=== PATIENT | male | born 1960 | race Caucasian/White ===

== ENCOUNTER 2020-01-31 09:03 | Inpatient (IN) | payer MEDICARE, MEDICAID, SELFPAY ==
[2020-01-31] VITALS (26 sets, daily range): BP systolic 74–93; BP diastolic 51–65; PULSE 94–107; RESP 14–32; TEMP 36.1–37.1; O2SAT 81–100; BMI 11.2
--- NOTE | 2020-01-31 09:12 | DI.RAD.S_ITS ---
PROCEDURE: XR CHEST 2V INDICATIONS: fall TECHNIQUE: 2 views of the chest were acquired. COMPARISON: None. FINDINGS: Surgical changes and devices: None. Lungs and pleura: Lungs are clear. No pleural effusions or pneumothorax. Mediastinum: Mediastinal contours are normal. Heart size is normal. Bones and chest wall: No suspicious bony abnormalities. Soft tissues appear unremarkable. IMPRESSION: No evidence acute pulmonary process. Dictated by: Catrachito Ritchie M.D. on 01/31/2020 at 10:13 Approved by: Catrachito Ritchie M.D. on 01/31/2020 at 10:13
--- NOTE | 2020-01-31 09:12 | DI.RAD.S_ITS ---
PROCEDURE: XR THORACIC SPINE 2V INDICATIONS: fall TECHNIQUE: 2 views of the thoracic spine were acquired. COMPARISON: None. FINDINGS: Bones: No fractures or dislocations. No suspicious bony lesions. 12 pairs of ribs are noted, and appear intact where visualized. Soft tissues: No paravertebral stripe thickening. IMPRESSION: No evidence acute bony abnormality of the thoracic spine. If clinical suspicion and/or symptoms persist, further assessment with repeat plain films, or advanced imaging (e.g., CT, MRI, or bone scan) may be helpful for further assessment. Dictated by: Catrachito Ritchie M.D. on 01/31/2020 at 10:12 Approved by: Catrachito Ritchie M.D. on 01/31/2020 at 10:12
--- NOTE | 2020-01-31 09:12 | DI.RAD.S_ITS ---
PROCEDURE: XR SACRUM COCCYX MIN 2V INDICATIONS: fall TECHNIQUE: 3 views of the sacrum and coccyx acquired. COMPARISON: None. FINDINGS: Bones: Probable sacral insufficiency fracture with a horizontal fracture noted on the lateral view at the level of approximately S3 or S4. The vertical components are not well visualized secondary to overlying bowel gas and osteopenia. Soft tissues: Visualized bowel gas pattern is normal. No suspicious soft tissue densities. IMPRESSION: There is a horizontal fracture at approximately S3 or S4. Findings likely represent sacral insufficiency fractures. Consider CT or MR for confirmation. Dictated by: Catrachito Ritchie M.D. on 01/31/2020 at 10:13 Approved by: Catrachito Ritchie M.D. on 01/31/2020 at 10:15
--- NOTE | 2020-01-31 09:13 | DI.CT.S_ITS ---
PROCEDURE: CT HEAD/BRAIN WO CON INDICATIONS: fall TECHNIQUE: Noncontrast 4.5 mm thick angled axial sections acquired from the foramen magnum to the vertex, with coronal and sagittal reformats. For radiation dose reduction, the following was used: automated exposure control, adjustment of mA and/or kV according to patient size. COMPARISON: [facility], CT, CT CERVICAL SPINE WO CON, 01/31/2020, 9:36. FINDINGS: Image quality: Excellent. CSF spaces: Basal cisterns are patent. No extra-axial fluid collections. The ventricles are symmetric in size and shape. Brain: No intracranial bleeds or masses. There is cerebral volume loss for age, with resultant ventricular and sulcal prominence. There are periventricular and deep white matter chronic small vessel ischemic changes. There is intracranial internal carotid artery atherosclerosis. Skull and face: Calvarium and visualized facial bones appear intact, without suspicious lesions. Sinuses: Visualized sinuses and mastoids are clear. IMPRESSION: No acute intracranial process is seen. No acute intracranial hemorrhage is seen. Dictated by: Rayray Penn M.D. on 01/31/2020 at 9:00 Approved by: Rayray Penn M.D. on 01/31/2020 at 9:01
--- NOTE | 2020-01-31 09:17 | ED_ITS ---
HPI - Weakness General Chief complaint: Fall Stated complaint: Weak Time Seen by Provider: 01/31/20 09:12 Source: patient and EMS Mode of arrival: EMS Limitations: no limitations History of Present Illness HPI Narrative: Patient is a 59-year-old male who presents after a fall 2 days prior. He states he was trying to get up to use the restroom when he fell on the ground he was finally able to Bang on the door and tract his neighbor's attention. He is extremely cachectic stating that he has been unable to eat for the last 2 months because nothing tastes good. He denies hitting his head when he fell he does have some skin abrasions on his arm. He states he does not go to the doctors and takes no medications. He does live alone. He initially was found to be hypotensive and IV was started. MD Complaint: generalized weakness Related Data Home Medications Medication Instructions Recorded Confirmed No Known Home Medications 01/31/20 01/31/20 Allergies Allergy/AdvReac Type Severity Reaction Status Date / Time No Known Drug Allergies Allergy Verified 01/31/20 09:30 Review of Systems Review of Systems ROS Unobtainable: All systems reviewed & are unremarkable except as noted in HPI and below Constitutional Constitutional: Reports anorexia, Reports fatigue, Denies headache(s) and Reports poor appetite Eyes Eyes: Denies change in vision, Denies eye discharge, Denies irritation and Denies loss of vision ENT Ears, Nose, Mouth, and Throat: Denies change in voice, Denies headache(s), Denies neck pain, Denies disequilibrium and Denies sore throat Cardiovascular Cardiovascular: Denies chest pain, Denies irregular heart rhythm, Denies lightheadedness, Denies palpitations and Denies orthopnea Gastrointestinal Gastrointestinal: Denies abdominal pain, Denies change in bowel habits, Denies diarrhea, Denies nausea and Denies vomiting Genitourinary Genitourinary: Reports urinary incontinence Genitourinary: Reports urinary incontinence Musculoskeletal Musculoskeletal: Reports atrophy, Reports muscle weakness and Denies neck pain Integumentary/Breasts Skin/Breast: Reports as per HPI and Reports sores Neurologic Neurologic: Denies headache(s), Denies loss of vision and Denies disequilibrium Endocrine Endocrine: Reports fatigue and Denies palpitations Patient History Medical History (Updated 01/31/20 @ 11:02 by Barbara Izquierdo DO) Patient denies medical problems (Acute) Social History Smoking Status: Current every day smoker Exam Initial Vital Signs Initial Vital Signs: Vital Signs Pulse Rate 103 H 01/31/20 09:05 Respiratory Rate 27 H 01/31/20 09:05 Blood Pressure 82/56 L 01/31/20 09:05 Pulse Oximetry 98 01/31/20 09:05 Gen.: Extremely cachectic frail elderly male HEENT: Head is atraumatic, EOMI Neck: Supple no vertebral tenderness no step-off Lungs: Clear bilaterally no wheezes rales or rhonchi Cardiac: Regular rate and rhythm no murmur Abdomen: Soft nontender nondistended no guarding or rebound Back: No vertebral tenderness thoracic area he does have areas of erythema that is blanchable he also has erythema on his coccyx also blanchable no open sores Extremities: No gross bony deformities peripheral pulses intact pelvis is stable 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 but equal bilaterally able to lift each leg off the gurney Skin: Skin tear noted on right forearm and right shoulder also areas of erythema noted on back better blanchable as described above Course Orders Ordered: ED Orders 01/31/20 09:12 XR chest 2V Stat XR sacrum coccyx min 2V Stat XR thoracic spine 2V Stat 01/31/20 09:13 CT head/brain wo con Stat EKG-12 Lead Stat 01/31/20 09:26 Urinalysis and Microscopic Stat Urine Drug Screen, Rapid Stat 01/31/20 09:29 Complete Blood Count AUTO DIFF Stat Comprehensive Metabolic Panel Stat Lactate (Lactic Acid) Stat Partial Thromboplastin Time Stat Procalcitonin Stat Prothrombin Time INR Stat Troponin & CK Cardiac Panel Stat 01/31/20 09:43 CT cervical spine wo con Stat 01/31/20 12:15 Blood Culture Stat Acetaminophen (Tylenol) 650 mg PO Q6HR PRN PRN Reason: Fever/Mild Pain (1-3) Docusate Sodium (Colace) 100 mg PO BID JEREMY Enoxaparin Sodium (Lovenox) 40 mg SUBCUT DAILY JEREMY Sodium Chloride (Normal Saline 0.9%) 1,000 mls @ 100 mls/hr IV CONT JEREMY Last Infusion: 01/31/20 12:17 Dose: 0 mls/hr Documented by: Admin: 01/31/20 09:32 Dose: 100 mls/hr Documented by: LIONEL Potassium Chloride 30 meq/ (Sodium Chloride) 265 mls @ 88.333 mls/hr IV Q3H JEREMY Stop: 01/31/20 15:55 Last Infusion: 01/31/20 12:17 Dose: 88.333 mls/hr Documented by: RJ Cosigned by: NOEMI Admin: 01/31/20 10:27 Dose: 88.333 mls/hr Documented by: RJ Cosigned by: NOEMI Sodium Chloride (Normal Saline 0.9%) 1,000 mls @ 100 mls/hr IV CONT JEREMY Naloxone HCl (Narcan) 0.2 mg IV Q2MIN PRN PRN Reason: Opiate Reversal Ondansetron HCl (Zofran) 4 mg IV Q8HR PRN PRN Reason: Nausea And Vomiting Oxycodone HCl (Percolone) 5 mg PO Q6HR PRN PRN Reason: Pain, Moderate (4-6) Sennosides (Senna) 17.2 mg PO BEDTIME JEREMY Discontinued Medications Sodium Chloride (Normal Saline 0.9%) 1,000 mls @ 1,000 mls/hr IV BOLUS ONE Stop: 01/31/20 10:56 Last Infusion: 01/31/20 11:41 Dose: 0 mls/hr Documented by: Admin: 01/31/20 10:11 Dose: 1,000 mls/hr Documented by: RJ Vital Signs Vital signs: Vital Signs - 8 hr 01/31/20 09:05 01/31/20 09:06 01/31/20 09:15 Temperature 97.0 F L Pulse Rate 103 H 101 H 97 H Respiratory Rate 27 H 26 H 31 H Blood Pressure 82/56 L 82/56 L 84/58 L Pulse Oximetry 98 99 100 01/31/20 09:30 01/31/20 09:40 01/31/20 10:05 Temperature Pulse Rate 101 H 102 H 101 H Respiratory Rate 26 H 23 22 Blood Pressure 86/65 L Pulse Oximetry 100 100 98 01/31/20 10:10 01/31/20 10:15 01/31/20 10:16 Temperature Pulse Rate 100 H 94 H 96 H Respiratory Rate 26 H 18 22 Blood Pressure 84/55 L 80/61 L Pulse Oximetry 98 100 100 01/31/20 10:30 01/31/20 10:45 01/31/20 10:46 Temperature Pulse Rate 94 H 95 H 97 H Respiratory Rate 24 25 H 32 H Blood Pressure 93/65 93/64 Pulse Oximetry 100 100 100 01/31/20 11:00 Temperature Pulse Rate 97 H Respiratory Rate 24 Blood Pressure 87/65 L Pulse Oximetry 100 MDM - Weakness Lab Data Attestation: I reviewed the patient's lab results. Result diagrams: 01/31/20 09:29 01/31/20 09:29 Labs: Lab Results 01/31/20 01/31/20 01/31/20 Range/Units 09:26 09:26 09:29 WBC 9.5 (4.5-11.0) X10^3/uL RBC 3.67 L (4.5-5.9) X10^6/uL Hgb 12.4 L (13.5-17.5) g/dL Hct 35.2 L (41-53) % MCV 95.9 (80-100) fL MCH 33.7 (26-34) PG MCHC 35.2 (30-36) % RDW 13.8 (11.6-14.8) % Plt Count 131 L (150-400) X10^3/uL Neut % (Auto) 91.1 H (50-75) % Lymph % (Auto) 8.2 L (25-40) % [place] % (Auto) 0.4 L (3-14) % Eos % (Auto) 0.0 L (2-4) % Baso % (Auto) 0.3 (0-2) % Neut # (Auto) 8600 H (0006-5640) /uL Lymph # (Auto) 800 L (7672-9311) /uL [place] # (Auto) 0 (0-900) /uL Eos # (Auto) 0 (0-450) /uL Baso # (Auto) 0 (0-100) /uL PT (10.1-12.7) SECONDS INR (0.9-1.3) APTT (26.4-36.2) SECONDS Sodium (137-145) mmol/L Potassium (3.4-5.1) mmol/L Chloride (98-107) mmol/L Carbon Dioxide (22-32) mmol/L BUN (9-20) mg/dL Creatinine (0.66-1.25) mg/dL Estimated GFR (>60) mL/min BUN/Creatinine Ratio (6-22) Glucose (80-110) mg/dL Lactate (0.7-2.1) mmol/L Calcium (8.4-10.2) mg/dL Total Bilirubin (0.2-1.3) mg/dL AST (17-59) IU/L ALT (<50) IU/L Alkaline Phosphatase (38-126) U/L Total Creatine Kinase (55-170) U/L CK-MB (CK-2) (<2.37) ng/mL CK-MB (CK-2) Rel Index (1.5-5.0) % Troponin I (0.01-0.034) ng/mL Total Protein (6.3-8.2) g/dL Albumin (3.5-5.0) g/dL Globulin (1.7-4.1) g/dL Albumin/Globulin Ratio (1.0-2.8) Procalcitonin (<0.5) ng/mL Urine Color Brown Urine Appearance Slightly cloudy Urine pH TNP Ur Specific [place] TNP Urine Protein TNP Urine Glucose (UA) TNP Urine Ketones TNP Urine Occult Blood TNP Urine Nitrate TNP Urine Bilirubin TNP Urine Urobilinogen TNP Ur Leukocyte Esterase TNP Urine RBC None seen (0-5/HPF) Urine WBC None seen (0-5/HPF) Ur Squamous Epith Cells 1-5 /hpf (0-5/HPF) Amorphous Sediment 1+ Urine Bacteria None seen (None) Granular Casts 5-10/lpf (None) Ur Culture Indicated? Cult not indicated U Opiates 300ng/mL cut Negative (Negative) Ur Oxycodone Screen Negative (Negative) Urine Methadone Screen Negative (Negative) Ur Barbiturates Screen Negative (Negative) U Tricyclic Antidepress Negative (Negative) Ur Phencyclidine Scrn Negative (Negative) Ur Amphetamines Screen Negative (Negative) U Methamphetamines Scrn Negative (Negative) Ur MDMA Scrn (Ecstasy) Negative (Negative) U Benzodiazepines Scrn Negative (Negative) Urine Cocaine Screen Negative (Negative) U Marijuana (THC) Screen Positive H (Negative) COVID-19 PCR (Negative) 01/31/20 01/31/20 01/31/20 Range/Units 09:29 09:29 09:29 WBC (4.5-11.0) X10^3/uL RBC (4.5-5.9) X10^6/uL Hgb (13.5-17.5) g/dL Hct (41-53) % MCV (80-100) fL MCH (26-34) PG MCHC (30-36) % RDW (11.6-14.8) % Plt Count (150-400) X10^3/uL Neut % (Auto) (50-75) % Lymph % (Auto) (25-40) % [place] % (Auto) (3-14) % Eos % (Auto) (2-4) % Baso % (Auto) (0-2) % Neut # (Auto) (1476-3174) /uL Lymph # (Auto) (5050-8694) /uL [place] # (Auto) (0-900) /uL Eos # (Auto) (0-450) /uL Baso # (Auto) (0-100) /uL PT 14.2 H (10.1-12.7) SECONDS INR 1.2 (0.9-1.3) APTT 29 (26.4-36.2) SECONDS Sodium 130 L (137-145) mmol/L Potassium 2.7 L* (3.4-5.1) mmol/L Chloride 80 L (98-107) mmol/L Carbon Dioxide 28 (22-32) mmol/L BUN 82 H (9-20) mg/dL Creatinine 2.16 H (0.66-1.25) mg/dL Estimated GFR 31.2 L (>60) mL/min BUN/Creatinine Ratio 38.0 H (6-22) Glucose 115 H (80-110) mg/dL Lactate (0.7-2.1) mmol/L Calcium 7.3 L (8.4-10.2) mg/dL Total Bilirubin 2.7 H (0.2-1.3) mg/dL AST 24 (17-59) IU/L ALT 10 (<50) IU/L Alkaline Phosphatase 66 (38-126) U/L Total Creatine Kinase 272 H (55-170) U/L CK-MB (CK-2) 1.64 (<2.37) ng/mL CK-MB (CK-2) Rel Index 0.6 L (1.5-5.0) % Troponin I 0.101 H (0.01-0.034) ng/mL Total Protein 6.5 (6.3-8.2) g/dL Albumin 3.4 L (3.5-5.0) g/dL Globulin 3.1 (1.7-4.1) g/dL Albumin/Globulin Ratio 1.1 (1.0-2.8) Procalcitonin 4.17 H (<0.5) ng/mL Urine Color Urine Appearance Urine pH Ur Specific [place] Urine Protein Urine Glucose (UA) Urine Ketones Urine Occult Blood Urine Nitrate Urine Bilirubin Urine Urobilinogen Ur Leukocyte Esterase Urine RBC (0-5/HPF) Urine WBC (0-5/HPF) Ur Squamous Epith Cells (0-5/HPF) Amorphous Sediment Urine Bacteria (None) Granular Casts (None) Ur Culture Indicated? U Opiates 300ng/mL cut (Negative) Ur Oxycodone Screen (Negative) Urine Methadone Screen (Negative) Ur Barbiturates Screen (Negative) U Tricyclic Antidepress (Negative) Ur Phencyclidine Scrn (Negative) Ur Amphetamines Screen (Negative) U Methamphetamines Scrn (Negative) Ur MDMA Scrn (Ecstasy) (Negative) U Benzodiazepines Scrn (Negative) Urine Cocaine Screen (Negative) U Marijuana (THC) Screen (Negative) COVID-19 PCR (Negative) 01/31/20 01/31/20 Range/Units 09:29 10:07 WBC (4.5-11.0) X10^3/uL RBC (4.5-5.9) X10^6/uL Hgb (13.5-17.5) g/dL Hct (41-53) % MCV (80-100) fL MCH (26-34) PG MCHC (30-36) % RDW (11.6-14.8) % Plt Count (150-400) X10^3/uL Neut % (Auto) (50-75) % Lymph % (Auto) (25-40) % [place] % (Auto) (3-14) % Eos % (Auto) (2-4) % Baso % (Auto) (0-2) % Neut # (Auto) (3113-9106) /uL Lymph # (Auto) (5368-6949) /uL [place] # (Auto) (0-900) /uL Eos # (Auto) (0-450) /uL Baso # (Auto) (0-100) /uL PT (10.1-12.7) SECONDS INR (0.9-1.3) APTT (26.4-36.2) SECONDS Sodium (137-145) mmol/L Potassium (3.4-5.1) mmol/L Chloride (98-107) mmol/L Carbon Dioxide (22-32) mmol/L BUN (9-20) mg/dL Creatinine (0.66-1.25) mg/dL Estimated GFR (>60) mL/min BUN/Creatinine Ratio (6-22) Glucose (80-110) mg/dL Lactate 2.4 H (0.7-2.1) mmol/L Calcium (8.4-10.2) mg/dL Total Bilirubin (0.2-1.3) mg/dL AST (17-59) IU/L ALT (<50) IU/L Alkaline Phosphatase (38-126) U/L Total Creatine Kinase (55-170) U/L CK-MB (CK-2) (<2.37) ng/mL CK-MB (CK-2) Rel Index (1.5-5.0) % Troponin I (0.01-0.034) ng/mL Total Protein (6.3-8.2) g/dL Albumin (3.5-5.0) g/dL Globulin (1.7-4.1) g/dL Albumin/Globulin Ratio (1.0-2.8) Procalcitonin (<0.5) ng/mL Urine Color Urine Appearance Urine pH Ur Specific [place] Urine Protein Urine Glucose (UA) Urine Ketones Urine Occult Blood Urine Nitrate Urine Bilirubin Urine Urobilinogen Ur Leukocyte Esterase Urine RBC (0-5/HPF) Urine WBC (0-5/HPF) Ur Squamous Epith Cells (0-5/HPF) Amorphous Sediment Urine Bacteria (None) Granular Casts (None) Ur Culture Indicated? U Opiates 300ng/mL cut (Negative) Ur Oxycodone Screen (Negative) Urine Methadone Screen (Negative) Ur Barbiturates Screen (Negative) U Tricyclic Antidepress (Negative) Ur Phencyclidine Scrn (Negative) Ur Amphetamines Screen (Negative) U Methamphetamines Scrn (Negative) Ur MDMA Scrn (Ecstasy) (Negative) U Benzodiazepines Scrn (Negative) Urine Cocaine Screen (Negative) U Marijuana (THC) Screen (Negative) COVID-19 PCR Negative (Negative) Imaging Data CT scan - head: Radiologist Impression: PROCEDURE: CT HEAD/BRAIN WO CON INDICATIONS: fall TECHNIQUE: Noncontrast 4.5 mm thick angled axial sections acquired from the foramen magnum to the vertex, with coronal and sagittal reformats. For radiation dose reduction, the following was used: automated exposure control, adjustment of mA and/or kV according to patient size. COMPARISON: [facility], CT, CT CERVICAL SPINE WO CON, 01/31/2020, 9:36. FINDINGS: Image quality: Excellent. CSF spaces: Basal cisterns are patent. No extra-axial fluid collections. The ventricles are symmetric in size and shape. Brain: No intracranial bleeds or masses. There is cerebral volume loss for age, with resultant ventricular and sulcal prominence. There are periventricular and deep white matter chronic small vessel ischemic changes. There is intracranial internal carotid artery atherosclerosis. Skull and face: Calvarium and visualized facial bones appear intact, without suspicious lesions. Sinuses: Visualized sinuses and mastoids are clear. IMPRESSION: No acute intracranial process is seen. No acute intracranial hemorrhage is seen. Dictated by: Rayray Penn M.D. on 01/31/2020 at 9:00 CT - cervical spine: Radiologist Impression: PROCEDURE: CT CERVICAL SPINE WO CON INDICATIONS: fall TECHNIQUE: Noncontrast 3 mm thick sections acquired from the skull base to the T4 level. Sagittal and coronal reformats were then constructed. For radiation dose reduction, the following was used: automated exposure control, adjustment of mA and/or kV according to patient size. COMPARISON: [facility], CT, CT HEAD/BRAIN WO CON, 01/31/2020, 9:36. FINDINGS: Image quality: Excellent. Bones: No fractures or dislocations. Visualized superior ribs are intact. Degenerative changes are seen throughout, including moderate to severe disc space narrowing at C4-C5 and C5-C6. Milder degenerative changes are seen elsewhere. Soft tissues: Prevertebral soft tissues are normal in thickness. No paravertebral hematomas. No apical pneumothoraces. Moderate prominent emphysematous changes are seen at the lung apices. Mild retained secretions can be seen within the visualized inferior trachea. IMPRESSION: No acute fractures are seen. Lower cervical spine degenerative changes. Dictated by: Rayray Penn M.D. on 01/31/2020 at 9:01 Chest x-ray: Radiologist Impression: PROCEDURE: XR CHEST 2V INDICATIONS: fall TECHNIQUE: 2 views of the chest were acquired. COMPARISON: None. FINDINGS: Surgical changes and devices: None. Lungs and pleura: Lungs are clear. No pleural effusions or pneumothorax. Mediastinum: Mediastinal contours are normal. Heart size is normal. Bones and chest wall: No suspicious bony abnormalities. Soft tissues appear unremarkable. IMPRESSION: No evidence acute pulmonary process. Dictated by: Catrachito Ritchie M.D. on 01/31/2020 at 10:13 Extremity x-ray #1: Radiologist Impression: PROCEDURE: XR SACRUM COCCYX MIN 2V INDICATIONS: fall TECHNIQUE: 3 views of the sacrum and coccyx acquired. COMPARISON: None. FINDINGS: Bones: Probable sacral insufficiency fracture with a horizontal fracture noted on the lateral view at the level of approximately S3 or S4. The vertical components are not well visualized secondary to overlying bowel gas and osteopenia. Soft tissues: Visualized bowel gas pattern is normal. No suspicious soft tissue densities. IMPRESSION: There is a horizontal fracture at approximately S3 or S4. Findings likely represent sacral insufficiency fractures. Consider CT or MR for confirmation. Dictated by: Catrachito Ritchie M.D. on 01/31/2020 at 10:13 Extremity x-ray #2: Radiologist Impression: PROCEDURE: XR THORACIC SPINE 2V INDICATIONS: fall TECHNIQUE: 2 views of the thoracic spine were acquired. COMPARISON: None. FINDINGS: Bones: No fractures or dislocations. No suspicious bony lesions. 12 pairs of ribs are noted, and appear intact where visualized. Soft tissues: No paravertebral stripe thickening. IMPRESSION: No evidence acute bony abnormality of the thoracic spine. If clinical suspicion and/or symptoms persist, further assessment with repeat plain films, or advanced imaging (e.g., CT, MRI, or bone scan) may be helpful for further assessment. Dictated by: Catrachito Ritchie M.D. on 01/31/2020 at 10:12 ECG Data Attestation: I personally reviewed and interpreted this ECG as follows: Prior ECG tracings: not available for review Interpretation: Normal sinus rhythm rate 101 p.r. interval 138 QRS [address] changes no priors to compare MDM Narrative Medical decision making narrative: Patient is severely cachectic and has failure to thrive. Urine is extremely dark and appears bloody however CPK is 272 no signs of rhabdomyolysis. Creatinine is elevated likely from dehydration potassium is found to be low. He does have QT prolongation. The patient's next of kin listed in computer is unfortunately , he requests that we call his sister Nancy Tapia who lives in [place], unfortunately her phone number is not listed her is Samson Tapia, also not listed. Patient is agreeable to IV fluids and admission but seems hesitant to any other treatments. Patient has elevated procalcitonin but no sign of infection. Hospitalist made aware of this no antibiotics at this time. Dr. Rodriguez accepts for observation Discharge Plan Departure Patient Disposition: Admitted as Observation Clinical Impression: Acute dehydration, Adult failure to thrive, Acute hypokalemia Discharge Date/Time: 01/31/20 12:17 Admit Date/Time: 01/31/20 11:03 Admit Provider: Nain Rodriguez
--- NOTE | 2020-01-31 09:20 | PC.NURSE ---
Changed soiled sheets from patient. Replaced with new clean sheets and warm blankets.
[2020-01-31] MEDS: SODIUM CHLORIDE 0.9% 1,000 ML 100 ML IV (09:32)
[2020-01-31 09:36] LABS: Bacteria Urine None Seen; RBC Urine None Seen (0-5/HPF); WBC Urine None Seen (0-5/HPF)
--- NOTE | 2020-01-31 09:36 | PC.NURSE ---
Skin tear on patient's right forearm cleaned, covered with xerform gauze, and wrapped with gauze roll.
[2020-01-31 09:39] LABS: Add Manual Diff / Slide Review NO; Basophils Absolute Auto 0 /uL (0-100); Basophils Percent Auto 0.3 % (0-2); Eosinophils Absolute Auto 0 /uL (0-450); Hematocrit 35.2 % (41-53); Hemoglobin 12.4 g/dL (13.5-17.5); Lymphocytes Absolute Auto 800 /uL (1100-4500); Lymphocytes Percent Auto 8.2 % (25-40); Mean Corpuscular HGB Conc 35.2 % (30-36); Mean Corpuscular Hemoglobin 33.7 PG (26-34); Mean Corpuscular Volume 95.9 fL (80-100); Monocytes Absolute Auto 0 /uL (0-900); Monocytes Percent Auto 0.4 % (3-14); Neutrophils Absolute Auto 8600 /uL (1500-7000); Neutrophils Percent Auto 91.1 % (50-75); Platelet Count 131 X10^3/uL (150-400); Red Blood Cell Count 3.67 X10^6/uL (4.5-5.9); Red Cell Distribution Width 13.8 % (11.6-14.8); White Blood Cell Count 9.5 X10^3/uL (4.5-11.0)
[2020-01-31] MEDS: LIDOCAINE 2% (UROJET) 5 ML GEL (09:39)
--- NOTE | 2020-01-31 09:43 | DI.CT.S_ITS ---
PROCEDURE: CT CERVICAL SPINE WO CON INDICATIONS: fall TECHNIQUE: Noncontrast 3 mm thick sections acquired from the skull base to the T4 level. Sagittal and coronal reformats were then constructed. For radiation dose reduction, the following was used: automated exposure control, adjustment of mA and/or kV according to patient size. COMPARISON: [facility], CT, CT HEAD/BRAIN WO CON, 01/31/2020, 9:36. FINDINGS: Image quality: Excellent. Bones: No fractures or dislocations. Visualized superior ribs are intact. Degenerative changes are seen throughout, including moderate to severe disc space narrowing at C4-C5 and C5-C6. Milder degenerative changes are seen elsewhere. Soft tissues: Prevertebral soft tissues are normal in thickness. No paravertebral hematomas. No apical pneumothoraces. Moderate prominent emphysematous changes are seen at the lung apices. Mild retained secretions can be seen within the visualized inferior trachea. IMPRESSION: No acute fractures are seen. Lower cervical spine degenerative changes. Dictated by: Rayray Penn M.D. on 01/31/2020 at 9:01 Approved by: Rayray Penn M.D. on 01/31/2020 at 9:02
[2020-01-31 09:47] LABS: INR 1.2 (0.9-1.3); Prothrombin Time 14.2 SECONDS (10.1-12.7)
[2020-01-31 09:49] LABS: PTT Partial Thromboplastin Tim 29 SECONDS (26.4-36.2)
[2020-01-31 09:51] LABS: Lactate (Lactic Acid) 2.4 mmol/L (0.7-2.1)
[2020-01-31 09:52] LABS: Alanine Aminotransferase 10 IU/L (<50); Albumin 3.4 g/dL (3.5-5.0); Albumin Globulin Ratio 1.1 (1.0-2.8); Alkaline Phosphatase 66 U/L (38-126); Aspartate Aminotransferase 24 IU/L (17-59); Bilirubin Total 2.7 mg/dL (0.2-1.3); Blood Urea Nitrogen 82 mg/dL (9-20); Calcium 7.3 mg/dL (8.4-10.2); Carbon Dioxide 28 mmol/L (22-32); Chloride 80 mmol/L (98-107); Creatine Kinase 272 U/L (55-170); Estimated Glomerular Filt Rate 31.2 mL/min (>60); Globulin 3.1 g/dL (1.7-4.1); Glucose 115 mg/dL (80-110); Sodium 130 mmol/L (137-145); Total Protein 6.5 g/dL (6.3-8.2)
[2020-01-31 09:54] LABS: Potassium 2.7 mmol/L (3.4-5.1)
[2020-01-31 10:03] LABS: Troponin I 0.101 ng/mL (0.01-0.034)
[2020-01-31 10:04] LABS: Ur Creatinine Normal (Normal); Ur Specific Gravity Normal (Normal); Urine pH Normal (Normal)
[2020-01-31 10:05] LABS: Color Urine UA BROWN; UR Morphine/Opiate cutoff 300 Negative (Negative); Urine Amphetamines Negative (Negative); Urine Barbiturates Negative (Negative); Urine Benzodiazepines Negative (Negative); Urine Cocaine Negative (Negative); Urine MDMA Negative (Negative); Urine Methadone Negative (Negative); Urine Methamphetamines Negative (Negative); Urine Oxycodone Negative (Negative); Urine Phencyclidine Negative (Negative); Urine Tetrahydrocannabinol Positive (Negative); Urine Tricyclic Antidepressant Negative (Negative)
[2020-01-31 10:06] LABS: Appearance Urine UA Slightly Cloudy
[2020-01-31 10:07] LABS: Amorphous Sediment Urine 1+; Culture Indicated Urine Cult Not Indicated; Granular Casts Urine 5-10/LPF; Squamous Epithelial Cell Urine 1-5 /HPF (0-5/HPF)
[2020-01-31 10:07] LABS: CKMB % Relative Index 0.6 % (1.5-5.0); Creatine Kinase MB 1.64 ng/mL (<2.37); HEMOLYSIS 38 (0-50); Procalcitonin 4.17 ng/mL (<0.5)
[2020-01-31] MEDS: SODIUM CHLORIDE 0.9% 1,000 ML 1000 ML IV (10:11)
--- NOTE | 2020-01-31 10:21 | PC.NURSE ---
Pt found by neighbor at home. EMS found pt on floor. Pt stated he had been there for two days. EMS states there were no medications / alcohol/ drugs in studio apartment and pt's home was immaculate. Pt BP in field 50/palp. Given fluid w/ improvement. Pt is profoundly weak w/ whispering speaking voice, able to move all four extremities weakly but equally. Pt w/ multiple areas of break down including pressure over most roseann prominences. Roseann prominences cushioned, pt placed in position of comfort w/ heels elevated. ok'd po fluids.
[2020-01-31] MEDS: POTASSIUM CHLORIDE 30 MEQ in SODIUM CHLORIDE 0.9% 250 ML 88.333 ML IV (10:27)
[2020-01-31 11:13] LABS: COVID19 -Nasal RAPID Negative (Negative)
[2020-01-31 11:38] LABS: Reflexed Lactate in 2 Hours Y
[2020-01-31 12:13] LABS: Lactate 2HR (Lactic Acid Rflx) 1.4 mmol/L (0.7-2.1)
--- NOTE | 2020-01-31 14:29 | PM.HP.1 ---
History of Present Illness History of Present Illness Date Patient Seen: 01/31/20 Time Patient Seen: 14:29 Chief complaint: Weak Narrative: Rusty Jauregui is a 59-year-old male with no known past medical history who presented after a fall 2 days ago at home. He states he was trying to get up to use the restroom when he fell on the ground and had been trying to get his neighbors attention. He denies hitting his head when he fell he does have some skin abrasions on his arm. He denies any preceding nausea, dizziness, chest pain, shortness of breath. He has been very weak for many months. He states he has fallen approximately 3 times in the past 3 years but has never sought medical attention. On a prior fall he had severe pain on his buttock, but not during this episode. He is extremely cachectic stating that he has been unable to eat for the last 2 months because he has seemingly lost his sense of taste, and he has developed some pain in the middle of his throat with swallowing. Prior to this he reports less than less intake actually over the past 3 years. He states he does not go to the doctors and takes no medications. He lives alone but his sister has been checking on him intermittently. He has lost a lot of weight and complains of rectal bleeding and melena over the past few years, and he does complain some abdominal pressure but denies any pain. He denies any history of IV drug use but does endorse prior marijuana use, and significant alcohol intake up to 3/4 of a L of whiskey a day. He has not had a drink in the past 2 months because he has been unable to really tolerate any oral intake. The patient was initially mildly hypotensive into the 80s over 50s, improved somewhat with IV fluids into the 90s. Given his body habitus this is likely his baseline blood pressure. His BMI is 11.3. His labs were notable for a mild anemia with a hemoglobin of 12.4, and a platelet count of 131. I actually think this is somewhat hemoconcentrated and he probably has a more profound anemia and thrombocytopenia. Chemistries were remarkable for a sodium of 130, potassium of 2.7, creatinine of 2.16 with a BUN of 82. Initial lactate was 2.2 improved to 1.4 after initial fluids. Initial bilirubin was 2.7 with no elevation in AST or ALT. CK was 272, initial troponin was 0.101. Procalcitonin was elevated at 4.17. EKG showed prolonged QT with mild ST depressions in V3, but no other evidence of ischemia. Chest x-ray showed no acute processes. Radiograph of his sacrum showed a horizontal fracture and S3 an S4, radiograph of his thoracic spine was negative for acute fractures. Head and neck CT were unremarkable and showed no masses, bleeding, or fractures. Patient was admitted under inpatient status for failure to thrive. Patient History Medical History (Updated 01/31/20 @ 11:02 by Barbara Izquierdo DO) Patient denies medical problems (Acute) Family & Social History Safety & Behavioral: Feels Safe in Current Yes Environment Been Physically Hurt or No Threatened By a Person Tobacco & Substance use: Smoking Status Current every day smoker alcohol intake frequency 3 or more drinks per day Substance Use Type marijuana Meds Home Medications and Allergies Home Medications Medication Instructions Recorded Confirmed Type No Known Home Medications 01/31/20 01/31/20 History Allergies Allergy/AdvReac Type Severity Reaction Status Date / Time No Known Drug Allergies Allergy Verified 01/31/20 09:30 Review of Systems Review of Systems Narrative: All other systems reviewed with the patient and are negative unless otherwise stated. Exam Vital Signs (past 8 hours): - 01/31/20 09:05 01/31/20 09:06 01/31/20 09:15 Temperature 97.0 F L Pulse Rate 103 H 101 H 97 H Respiratory Rate 27 H 26 H 31 H Blood Pressure 82/56 L 82/56 L 84/58 L Pulse Oximetry 98 99 100 01/31/20 09:30 01/31/20 09:40 01/31/20 10:05 Temperature Pulse Rate 101 H 102 H 101 H Respiratory Rate 26 H 23 22 Blood Pressure 86/65 L Pulse Oximetry 100 100 98 01/31/20 10:10 01/31/20 10:15 01/31/20 10:16 Temperature Pulse Rate 100 H 94 H 96 H Respiratory Rate 26 H 18 22 Blood Pressure 84/55 L 80/61 L Pulse Oximetry 98 100 100 01/31/20 10:30 01/31/20 10:45 01/31/20 10:46 Temperature Pulse Rate 94 H 95 H 97 H Respiratory Rate 24 25 H 32 H Blood Pressure 93/65 93/64 Pulse Oximetry 100 100 100 01/31/20 11:00 01/31/20 11:15 01/31/20 11:30 Temperature Pulse Rate 97 H 101 H 99 H Respiratory Rate 24 21 24 Blood Pressure 87/65 L 91/65 88/59 L Pulse Oximetry 100 81 L 97 01/31/20 11:45 01/31/20 12:00 01/31/20 13:25 Temperature 97.9 F Pulse Rate 100 H 100 H 101 H Respiratory Rate 27 H 25 H 14 Blood Pressure 89/62 L 86/63 L 90/57 L Pulse Oximetry 99 99 98 Oxygen Delivery Method Room Air Narrative Exam Narrative: GENERAL APPEARANCE: Cachectic appearing male, with significant muscle wasting, BMI of 11.3. No acute distress. SKIN: Inspection of the skin reveals purplish lesions on his anterior chest and arms, they are small, with slightly raised edges and slightly irregular borders and non blanchable. HEENT: Normocephalic atraumatic, extraocular muscles are intact, oropharynx is clear and mucous membranes are moist, neck is supple without adenopathy NECK: Supple and symmetric. There was no thyroid enlargement, and no tenderness, or masses were felt. CHEST: Can almost see all ribs, equal chest rise bilaterally LUNGS: Auscultation of the lungs revealed no wheezes, rhonchi, or rales. CARDIOVASCULAR: There was a regular rate and rhythm without any murmurs, gallops, rubs. Peripheral pulses were 2+ and symmetric. ABDOMEN: Somewhat firm and nodular feeling abdomen, slightly distended, no overt tenderness. No guarding or rebound. MUSCULOSKELETAL: There was no tenderness or effusions noted. Muscle strength was diminished throughout, very little muscle tone given wasting. EXTREMITIES: No cyanosis, clubbing or edema. NEUROLOGIC: Alert and oriented x 3. Somewhat flat affect but appropriate behavior. Diffuse lower extremity weakness, but grossly +5/5. Upper extremity strength is +5/5. Sensation to touch was normal. Objective Labs Result Diagrams: 01/31/20 09:29 01/31/20 09:29 Labs: Laboratory Results - last 24 hr 01/31/20 01/31/20 01/31/20 09:26 09:26 09:29 WBC 9.5 RBC 3.67 L Hgb 12.4 L Hct 35.2 L MCV 95.9 MCH 33.7 MCHC 35.2 RDW 13.8 Plt Count 131 L Neut % (Auto) 91.1 H Lymph % (Auto) 8.2 L [place] % (Auto) 0.4 L Eos % (Auto) 0.0 L Baso % (Auto) 0.3 Neut # (Auto) 8600 H Lymph # (Auto) 800 L [place] # (Auto) 0 Eos # (Auto) 0 Baso # (Auto) 0 PT INR APTT Sodium Potassium Chloride Carbon Dioxide BUN Creatinine Estimated GFR BUN/Creatinine Ratio Glucose Lactate Calcium Total Bilirubin AST ALT Alkaline Phosphatase Total Creatine Kinase CK-MB (CK-2) CK-MB (CK-2) Rel Index Troponin I Total Protein Albumin Globulin Albumin/Globulin Ratio Procalcitonin Urine Color Brown Urine Appearance Slightly cloudy Urine pH TNP Ur Specific [place] TNP Urine Protein TNP Urine Glucose (UA) TNP Urine Ketones TNP Urine Occult Blood TNP Urine Nitrate TNP Urine Bilirubin TNP Urine Urobilinogen TNP Ur Leukocyte Esterase TNP Urine RBC None seen Urine WBC None seen Ur Squamous Epith Cells 1-5 /hpf Amorphous Sediment 1+ Urine Bacteria None seen Granular Casts 5-10/lpf Ur Culture Indicated? Cult not indicated U Opiates 300ng/mL cut Negative Ur Oxycodone Screen Negative Urine Methadone Screen Negative Ur Barbiturates Screen Negative U Tricyclic Antidepress Negative Ur Phencyclidine Scrn Negative Ur Amphetamines Screen Negative U Methamphetamines Scrn Negative Ur MDMA Scrn (Ecstasy) Negative U Benzodiazepines Scrn Negative Urine Cocaine Screen Negative U Marijuana (THC) Screen Positive H COVID-19 PCR 01/31/20 01/31/20 01/31/20 09:29 09:29 09:29 WBC RBC Hgb Hct MCV MCH MCHC RDW Plt Count Neut % (Auto) Lymph % (Auto) [place] % (Auto) Eos % (Auto) Baso % (Auto) Neut # (Auto) Lymph # (Auto) [place] # (Auto) Eos # (Auto) Baso # (Auto) PT 14.2 H INR 1.2 APTT 29 Sodium 130 L Potassium 2.7 L* Chloride 80 L Carbon Dioxide 28 BUN 82 H Creatinine 2.16 H Estimated GFR 31.2 L BUN/Creatinine Ratio 38.0 H Glucose 115 H Lactate Calcium 7.3 L Total Bilirubin 2.7 H AST 24 ALT 10 Alkaline Phosphatase 66 Total Creatine Kinase 272 H CK-MB (CK-2) 1.64 CK-MB (CK-2) Rel Index 0.6 L Troponin I 0.101 H Total Protein 6.5 Albumin 3.4 L Globulin 3.1 Albumin/Globulin Ratio 1.1 Procalcitonin 4.17 H Urine Color Urine Appearance Urine pH Ur Specific [place] Urine Protein Urine Glucose (UA) Urine Ketones Urine Occult Blood Urine Nitrate Urine Bilirubin Urine Urobilinogen Ur Leukocyte Esterase Urine RBC Urine WBC Ur Squamous Epith Cells Amorphous Sediment Urine Bacteria Granular Casts Ur Culture Indicated? U Opiates 300ng/mL cut Ur Oxycodone Screen Urine Methadone Screen Ur Barbiturates Screen U Tricyclic Antidepress Ur Phencyclidine Scrn Ur Amphetamines Screen U Methamphetamines Scrn Ur MDMA Scrn (Ecstasy) U Benzodiazepines Scrn Urine Cocaine Screen U Marijuana (THC) Screen COVID-19 PCR 01/31/20 01/31/20 01/31/20 09:29 10:07 11:54 WBC RBC Hgb Hct MCV MCH MCHC RDW Plt Count Neut % (Auto) Lymph % (Auto) [place] % (Auto) Eos % (Auto) Baso % (Auto) Neut # (Auto) Lymph # (Auto) [place] # (Auto) Eos # (Auto) Baso # (Auto) PT INR APTT Sodium Potassium Chloride Carbon Dioxide BUN Creatinine Estimated GFR BUN/Creatinine Ratio Glucose Lactate 2.4 H 1.4 Calcium Total Bilirubin AST ALT Alkaline Phosphatase Total Creatine Kinase CK-MB (CK-2) CK-MB (CK-2) Rel Index Troponin I Total Protein Albumin Globulin Albumin/Globulin Ratio Procalcitonin Urine Color Urine Appearance Urine pH Ur Specific [place] Urine Protein Urine Glucose (UA) Urine Ketones Urine Occult Blood Urine Nitrate Urine Bilirubin Urine Urobilinogen Ur Leukocyte Esterase Urine RBC Urine WBC Ur Squamous Epith Cells Amorphous Sediment Urine Bacteria Granular Casts Ur Culture Indicated? U Opiates 300ng/mL cut Ur Oxycodone Screen Urine Methadone Screen Ur Barbiturates Screen U Tricyclic Antidepress Ur Phencyclidine Scrn Ur Amphetamines Screen U Methamphetamines Scrn Ur MDMA Scrn (Ecstasy) U Benzodiazepines Scrn Urine Cocaine Screen U Marijuana (THC) Screen COVID-19 PCR Negative Assessment & Plan Assessment & Plan narrative: Rusty Jauregui is a 59-year-old male with no known past medical history who was admitted with failure to thrive 1. Failure to thrive -patient with very little p.o. intake over the past few weeks, but symptoms have been progressive over the past 3 years or so. 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 -suspect acute worsening with hypokalemia, hyponatremia, elevated creatinine, and elevated troponin in the setting of oral thrush leading to further decreased p.o. intake further in the setting of likely malignancy or possibly a more chronic infectious process -highly suspect malignancy given reports of melena and GI bleeding. Once his creatinine improves will order a CT of his chest and abdomen for further evaluation. -Continue IV fluids, restart diet with caution for refeeding syndrome. -deitary consultation. -start thrush treatment. -consider surgery for EGD/C-scope depending on findings. Have ordered CEA as patient with family history of colon cancer as well as rectal bleeding and melena reported for years. -send HIV testing, Hepatitis serologies. Skin lesions may be consistent with kaposi sarcoma if HIV is positive, they can also be indicative of advanced malignancy. 2. Hypokalemia, acute, present on admission - likely secondary to hypovolemia and decreased oral intake -patient was repleted in the emergency room, will continue to monitor and replete as necessary -check a magnesium level - continue telemetry - continue IVF 3. Hyponatremia, likely acute, present on admission -mild hyponatremia with a level of 130 on admission. Will continue normal saline 4. Elevated creatinine, present on admission -unknown baseline, and patient has not been to the doctor in many years. Suspect possible acute elevation in the setting decreased p.o. intake. CK was only mildly elevated and rhabdomyolysis is unlikely, although he has very little muscle left. -continue IV fluids with normal saline at 100 cc/hour -continue to monitor creatinine, and avoid nephrotoxic medications -once creatinine begins to improve will need CT imaging as noted above 5. Elevated troponin, present on admission. - likely elevated due to demand. No evidence of active ischemia on EKG and no chest pain. - consider TTE - continue to trend troponins until downtrending. 6. Anemia, thrombocytopenia, present on admission. - suspect mixed picture given normocytic anemia with reports of GI bleeding and malnutrition. Will send iron panel, B12, folate. - may be secondary to EtOH use in the past - I do suspect he is actually quite concentrated and his admission values of Hg of 12.4 and Plt of 131 will decrease with hydration. 7. Severe protein calorie malnutrition - BMI markedly decreased at 11.3, with recent weight loss and decreased PO intake. - correctional officer chief consultation 8. Oral thrush - clotrimazole gwen 5x daily. - HIV testing ordered as noted above. 9. Sacral fractures, unknown chronicity, present on admission - likely old given prior falls and reported pain but may be acute with falls 2 days ago. Continue pain control as necessary with tylenol as needed. - PT/OT consultation. Code: DNR as discussed with the patient, surrogate decision maker is the patient's sister Dispo: Admitted under inpatient status as his stay is likely to exceed 2 midnights. DVT: Lovenox daily COVID 19: negative 01/30
--- NOTE | 2020-01-31 15:05 | DIET.PN ---
Dietary Progress Note Assessment: 59y M admitted after being found on bathroom floor for 2d referred to nutrition for malnutrition assessment. Pt reports usual adult weight as 155#, noticed he started losing weight 3y ago, has had severe progressive weight loss in past 2 months reporting dysgeusia (nothing tastes good, even my favorite food, pizza) Pt reports his neighbors supply him with food and beverages, he says he has plenty of food in his house but has no desire to eat. Pt states he has been subsisting on 20oz Pepsi (250kcals) per day for 2mo. Pt has reduced renal function at this time, expect phos labs to be elevated r/t diet of dark cola. Hospitalist and nursing note Thrush which pt was unaware of. When discussing food preferences in hospital, pt states pie or a milkshake sound good. Because of pts current state, expect refeeding syndrome, will limit intake per ASPEN reccs to ~10kcal/kg/d and replete refeeding labs. HT: 180.3cm WT: 36.6kg UBW: 70.4kg (-48% unintentional, severe) BMI: 11.3 (severe) Labs: Na 130 L, K+ 2.7 L*, BUN 82 H, Cr 2.16 H, eGFR 31.2 L MNA: not yet calculated Crow: not yet calculated Nutrition Diagnosis: Severe Acute PCM aeb 48% below UBW (severe), BMI 11.3 (severe), POs <25% EER for 1mo, pt subsisting for 3 mo on 20oz Pepsi per day, global severe wasting of subcutaneous fat and muscle. Interventions: 1. limit intake to 10kcal/kg/d= 350kcal/d for first 24h increasing by 100kcal/d as labs normalize 2. Pt will receive ONS Nepro renal formula blended with ice and instructed to sip slowly over evening providing ~400kcals if consumed 100% 3. Will reevalutate POs and tailor menu to renal labs meal by meal taking into account pt preference. Diet Order: General EER: for his UBW: 2100kcal, 70g PRO however, pt is severely malnourished and high risk for refeeding, limit intake to 10kcal/kg/d= ~350kcal/d for first 24h increasing by 100kcal/d for 1-5d as labs normalize. Monitoring/Evaluations: following closely, can be reached at [id number]
[2020-01-31 16:31] LABS: Magnesium 1.9 mg/dL (1.6-2.3); Phosphorous 5.5 mg/dL (2.3-3.7)
[2020-01-31 16:32] LABS: BUN Creatinine Ratio 36.7 (6-22); Blood Urea Nitrogen 77 mg/dL (9-20); Calcium 6.6 mg/dL (8.4-10.2); Carbon Dioxide 20 mmol/L (22-32); Chloride 92 mmol/L (98-107); Estimated Glomerular Filt Rate 32.3 mL/min (>60); Glucose 103 mg/dL (80-110); Potassium 2.8 mmol/L (3.4-5.1); Sodium 132 mmol/L (137-145)
--- NOTE | 2020-01-31 16:33 | PC.NURSE ---
Hypotension Low BP of 84/58, rechecked @ 1615 and is 74/51 & 70/53. HR tachycardic low 100s and pt states is dizzy. Call to . Pt has 423cc remaining in NS bag currently hung. order to infuse remainder at 999cc/hr and than change rate to 125cc/hr.
[2020-01-31 16:34] LABS: HEMOLYSIS < 15 (0-50)
[2020-01-31 16:44] LABS: Troponin I 0.076 ng/mL (0.01-0.034)
[2020-01-31] MEDS: POTASSIUM CHLORIDE 30 MEQ in SODIUM CHLORIDE 0.9% 250 ML 88.3 ML IV (16:48)
[2020-01-31] MEDS: SODIUM CHLORIDE 0.9% 1,000 ML 125 ML IV (16:48)
[2020-01-31 17:03] LABS: TSH w/ Reflex to FT4 1.71 uIU/mL (0.47-4.68)
--- NOTE | 2020-01-31 17:05 | PC.NURSE ---
Addendum entered by Dinorah Galarza R.N. 01/31/20 22:31: chest x-ray complete. K-rider rate decreased to 75cc/hr per verbal order from . Addendum entered by Dinorah Galarza R.N. 01/31/20 22:13: when checking pt at 2200, pt states is feeling short of breath. states has been coughing a little and having a hard time catching his breath. O2 sats checked and are 85% RA. Pt assisted to sit up in bed. lungs sound coarse and pt has cough with deep breathing. 2L o2 applied with sats to the low 90s. notified and placed order for chest x-ray. Original Note: shift overview 1700 2nd K-rider infusing. Pt tolerating tiny sips of blended renal drink.
[2020-01-31 17:13] LABS: HIV 1 & 2 Ab/Ag 4th Gen Combo NEGATIVE (NEGATIVE)
[2020-01-31 17:20] LABS: Carcinoembryonic Antigen 4.7 ng/mL (0.1-3.0)
[2020-01-31] MEDS: CLOTRIMAZOLE TROCHE 10 MG PO ×2 (18:16→22:18)
[2020-01-31] MEDS: POTASSIUM CHLORIDE 20 MEQ/15 ML UDC PO (20:13)
[2020-01-31] MEDS: POTASSIUM CHLORIDE 40 MEQ in SODIUM CHLORIDE 0.9% 500 ML 130 ML IV (21:06)
--- NOTE | 2020-01-31 22:12 | DI.RAD.S_ITS ---
PROCEDURE: XR CHEST 1V INDICATIONS: Shortness of breath TECHNIQUE: One view of the chest was acquired. COMPARISON: None. FINDINGS: Surgical changes and devices: None. Lungs and pleura: Lungs are clear. No pleural effusions or pneumothorax. Mediastinum: Mediastinal contours appear normal. Heart size is normal. Bones and chest wall: No suspicious bony lesions. Overlying soft tissues appear unremarkable. IMPRESSION: No acute cardiopulmonary disease process. Dictated by: Pilar Wynn MD, PhD on 02/01/2020 at 7:55 Approved by: Pilar Wynn MD, PhD on 02/01/2020 at 7:58
[2020-02-01] VITALS (9 sets, daily range): BP systolic 78–142; BP diastolic 54–76; PULSE 107–120; RESP 17–28; TEMP 36.4–36.9; O2SAT 90–96
--- NOTE | 2020-02-01 00:36 | PC.NURSE ---
Addendum entered by Nikki Bobo R.N. 02/01/20 05:05: Noted to have increased coughing/throat clearing and states everytime he drinks the coughing starts. Per DEATH CLAIM CLERK gave patient nectar thickened water and he will put in orders for dysphagia diet and ST to evaluate swallowing ability. Original Note: Patient is alert and oriented to self, birthdate, age, year, place and situation. Breath sounds diminished and coarse. Complains of feeling mildly SOB and is on oxygen at 1L/min per NC with sat of 95%. Does have intermittent cough but no sputum noted although states he has coughed up white/yellow mucus at times. HRR but tachy at 109 bpm. BP continues trending low at 89/57. Telemetry reading is ST. Denies nausea but states he has not eaten x 2 weeks and has cachectic appearance. BT present; abdomen appears mildly distended but is non tender to touch. Indwelling catheter is patent; urine with sediment and is tea colored. Bruising noted on all extremities and chest. Abrasion on left upper arm, skin tear on right elbow and forearm (dressing is CDI). Redness to spine/hips so needing to be repositioned q2h as unable to do it by himself. Denies pain. Wearing bilateral calf SCD's. Fall risk score is high and bed alarm is activated.
[2020-02-01] MEDS: CLOTRIMAZOLE TROCHE 10 MG PO ×5 (05:35→21:41)
[2020-02-01 05:46] LABS: Add Manual Diff / Slide Review NO; Basophils Absolute Auto 0 /uL (0-100); Basophils Percent Auto 0.4 % (0-2); Eosinophils Absolute Auto 0 /uL (0-450); Hematocrit 30.6 % (41-53); Hemoglobin 10.5 g/dL (13.5-17.5); Lymphocytes Absolute Auto 700 /uL (1100-4500); Mean Corpuscular HGB Conc 34.2 % (30-36); Mean Corpuscular Hemoglobin 33.4 PG (26-34); Mean Corpuscular Volume 97.7 fL (80-100); Monocytes Absolute Auto 200 /uL (0-900); Monocytes Percent Auto 2.9 % (3-14); Neutrophils Absolute Auto 6400 /uL (1500-7000); Neutrophils Percent Auto 87.7 % (50-75); Platelet Count 101 X10^3/uL (150-400); Red Blood Cell Count 3.13 X10^6/uL (4.5-5.9); White Blood Cell Count 7.3 X10^3/uL (4.5-11.0)
[2020-02-01 05:53] LABS: HEMOLYSIS < 15 (0-50); Iron 16 ug/dL (49-181)
[2020-02-01 05:55] LABS: Hemoglobin A1C% w Est Avg Glu 5.3 % (4.0-6.0)
[2020-02-01 06:04] LABS: Percent Iron Saturation 11 % (20-50); Total Iron Binding Capacity 152 ug/dL (261-462); Transferrin 82 mg/dL (206-381)
[2020-02-01 06:16] LABS: Alanine Aminotransferase 8 IU/L (<50); Albumin 2.9 g/dL (3.5-5.0); Albumin Globulin Ratio 1.1 (1.0-2.8); Alkaline Phosphatase 61 U/L (38-126); Aspartate Aminotransferase 25 IU/L (17-59); BUN Creatinine Ratio 49.7 (6-22); Bilirubin Conjugated 0.1 md/dL (0.0-0.3); Bilirubin Total 1.6 mg/dL (0.2-1.3); Bilirubin Unconjugated 0.5 mg/dL (0.0-1.1); Blood Urea Nitrogen 77 mg/dL (9-20); Calcium 7.4 mg/dL (8.4-10.2); Carbon Dioxide 21 mmol/L (22-32); Chloride 100 mmol/L (98-107); Estimated Glomerular Filt Rate 45.8 mL/min (>60); Globulin 2.6 g/dL (1.7-4.1); Glucose 117 mg/dL (80-110); HEMOLYSIS < 15 (0-50); Magnesium 1.9 mg/dL (1.6-2.3); Phosphorous 2.8 mg/dL (2.3-3.7); Potassium 3.7 mmol/L (3.4-5.1); Sodium 136 mmol/L (137-145); Total Protein 5.5 g/dL (6.3-8.2)
[2020-02-01 06:25] LABS: Hepatitis B Surface Antigen NEGATIVE s/c (NEGATIVE)
[2020-02-01 06:31] LABS: Procalcitonin 1.73 ng/mL (<0.5)
[2020-02-01 06:57] LABS: Hep C Virus Ab w/Reflex Quant NEGATIVE s/c (NEGATIVE)
[2020-02-01 07:03] LABS: Folate 8.5 ng/mL (2.76-20.0); Vitamin B12 486 pg/mL (239-931)
[2020-02-01] MEDS: ENOXAPARIN 40 MG/0.4 ML SYRINGE SUBCUT (08:56)
--- NOTE | 2020-02-01 09:27 | DI.CT.S_ITS ---
PROCEDURE: CT CHEST ABD PEL W CON INDICATIONS: severe cachexia, weight loss, elevated CEA TECHNIQUE: After the administration of oral and intravenous contrast, 5 mm thick sections acquired from the lung apices to the symphysis. 5 mm coronal and sagittal reformats were performed, with additional 7 mm coronal MIP reformats through the lungs. For radiation dose reduction, the following was used: automated exposure control, adjustment of mA and/or kV according to patient size. COMPARISON: None. FINDINGS: Image quality: Excellent. CHEST: Lungs and pleura: The lungs are hyperinflated and there are severe upper lobe emphysematous changes. Multifocal bilateral areas of patchy parenchymal opacity and focal fibrotic changes are present in the perihilar regions bilaterally. There is a more rounded focal area of parenchymal density in the superior segment right upper lobe measuring about 1.3 cm. There is mild peribronchial thickening in the right lower lobe. Mediastinum: Heart size is normal. Moderate coronary artery calcification. No pericardial effusion. No mediastinal or hilar adenopathy by size criteria. The ascending aorta is ectatic measuring 3.9 cm in AP diameter. The remainder of the thoracic aorta and central pulmonary arteries are normal in size. Esophagus is normal in caliber. No hiatal hernia. Chest wall: No axillary or supraclavicular adenopathy by size criteria. Thyroid gland appears normal . ABDOMEN: Solid organs: Liver is normal in size and enhancement. Gallbladder is unremarkable . Biliary system is non dilated. Pancreas enhances normally. Spleen is normal in size and enhancement. No adrenal nodules. Kidneys demonstrate normal size and enhancement, without hydronephrosis. Peritoneum and bowel: The stomach is distended with fluid. There is significant distention of the colon loops with air-fluid levels. This extends to the level of the proximal sigmoid colon where there is suggestion of an enhancing intraluminal mass for short segment. Distally, there is semi solid stool in the rectum. No free intraperitoneal air or significant free fluid visible. Nodes and vessels: No retroperitoneal or mesenteric adenopathy by size criteria. Aorta and inferior vena cava are normal in size. Miscellaneous: No ventral hernias. PELVIS: Genitourinary: The urinary bladder is partially decompressed with a Vences catheter. The wall thickness is normal. Miscellaneous: No inguinal hernias or adenopathy. Bones: Bones are diffusely demineralized. There is joint space loss in the hip joints. No suspicious bony lesions. No vertebral body compression fractures. IMPRESSION: 1. Findings suspicious for a partially obstructing neoplasm in the proximal sigmoid colon. Colonoscopy is recommended if not already performed. 2. There is severe emphysema. 3. Multifocal areas of centralized pulmonary parenchymal fibrosis. These may also be infectious or postinflammatory. Metastatic disease is less likely given morphology. Dictated by: Wendy Harrison M.D. on 02/01/2020 at 9:09 Approved by: Wendy Harrison M.D. on 02/01/2020 at 9:42
--- NOTE | 2020-02-01 10:50 | PT.IIE ---
Medical History (Last Updated 01/31/20 @ 09:28 by Barbara Izquierdo DO) Patient denies medical problems (Acute) Physical Therapy Inpatient Evaluation/Re-Eval M1 PT/OT-IP Prior Functional Status Start: 02/01/20 12:39 Freq: NEEDED Status: Active Protocol: Document 02/01/20 10:50 AB (Rec: 02/01/20 12:50 AB [email or web address]) Medical Review Prior Functional Status Medical History Reviewed Yes Communication able to make needs known Mobility and Gait pt stated that he is independent with all mobilities and ambulation without AD Social History Household Members none Living Arrangements Apartment/Condo Number of Floors (Floors) 3 or More Floors Number of Stairs To Enter/Railing? pt stated that he lives in a 4 level house with an elevator: stays on the top floor elevator only goes up to the 3rd floor and then has 7 steps with bilateral rails to get to his level Home Environment High Toilet,Tub/Shower Home Equipment Shower Seat without Backrest, Hand Held Shower,Grab Bars In Shower M2 PT-IP Current Condition Start: 02/01/20 12:39 Freq: NEEDED Status: Active Protocol: Document 02/01/20 10:50 AB (Rec: 02/01/20 12:50 AB [email or web address]) Physical Therapy Current Condition Current Condition Evaluation Date 02/01/20 Treatment Diagnosis failure to thrive; difficulty in walking Onset Date 01/31/20 M3 PT-IP Subjective Start: 02/01/20 12:39 Freq: NEEDED Status: Active Protocol: Document 02/01/20 10:50 AB (Rec: 02/01/20 12:50 AB [email or web address]) Subjective Physical Therapy Visit Type Type Initial Evaluation Visit Start Time 10:50 Visit Stop Time 11:20 Total Visit Minutes 30 Number of ENVIRONMENTAL PROGRAMS MANAGER Visits 0 Physical Therapy Visit Comments Patient Comments pt initially refusing PT. stated that he is tired. educated pt on importance of PT and pt agreed to do some: pt stated the minimal that he will do. M4 PT-IP Mobility and Gait Start: 02/01/20 12:39 Freq: NEEDED Status: Active Protocol: Document 02/01/20 10:50 AB (Rec: 02/01/20 12:50 AB [email or web address]) PT-Bed Mobility Assessment Supine to Sit Supine to Sit Maximum Assistance,Head of Bed Elevated,Bedrails Sit to Supine Sit to Supine Maximum Assistance,1 Person Assistance,2 Person Assistance Scooting Scooting to Edge of Bed Dependent PT-Transfer Assessment Comments Mobility Comments pt completed supine to sit max A and max cues. required mod to max A with initial sitting on EOB. required total A for scooting to EOB. required CGA to min A sitting on EOB after repositioning. pt only tolerated ~ 4 min of sitting and stated that he wants to lay back down. pt required max A x 1-2 for sit to supine. total A x 2 for repositioning in bed. call light and table placed within reach. PT-Balance Assessment Sitting Balance and Reactions Static Sitting Balance Ability Fair Dynamic Sitting Balance Ability Poor M5 PT-IP Objective Assessments Start: 02/01/20 12:39 Freq: NEEDED Status: Active Protocol: Document 02/01/20 10:50 AB (Rec: 02/01/20 12:[facility] Orientation Orientation/Cognition Level of Alertness Alert Orientation Name Safety Awareness Decreased Safety Awareness Gross Range of Motion Lower Extremity ROM Assessment Within Functional Limits Strength Lower Extremity Strength Assessment Bilaterally Impaired Hip 3-/5 Knee RLE 3/5 LLE: 3+/5 Coordination Assessment Gross Coordination Gross Coordination WNL Sensation Assessment Sensation Gross Sensation WNL Muscle Tone Muscle Tone WNL Yes M6 PT-IP Treatment Start: 02/01/20 12:39 Freq: NEEDED Status: Active Protocol: Document 02/01/20 10:50 AB (Rec: 02/01/20 12:50 [facility] Physical Therapy Treatment Education Education Provided Safety M7 PT-IP Assessment and Plan Start: 02/01/20 12:39 Freq: NEEDED Status: Active Protocol: Document 02/01/20 10:50 AB (Rec: 02/01/20 12:50 AB [email or web address]) PT Summary Assessment and Plan Potential Rehabilitation Potential Good Status of Condition at Evaluation Evolving Summary Impairments Pain,ROM,Strength,Balance, Coordination,Sensation,Tone, Cognition,Bed Mobility, Transfers,Gait,Activity Tolerance Assessment Summary pt requiring max A x 2 to total A x 2 for mobility and unable to stand or ambulate at this time due to decrease activity tolerance. Pt was only able to tolerate ~ 4 min of sitting on EOB. pt also requires motivation to participate. pt will require SNF rehab to improve strength and mobility. Goals Bed Mobility Goal Minimal Assistance Transfer Goal Minimal Assistance,Front Wheeled Walker Gait Goal Minimal Assistance,Front Wheel Walker Gait Distance 50 Days to Meet Goals 10 Frequency of Treatment Frequency Of Treatment Once a Day Treatment Plan Physical Therapy Treatment Plan Bed Mobility Training,Transfer Training,Gait Training, Therapeutic Exercise,Balance Retraining,Discharge Planning, Hot or Cold Pack,Neuromuscular Re-ed,Coordination Retraining Recommendations To Nursing Amount of Assist Needed 2 Person Assist,Mechanical Lift Discharge Recommendations PT Discharge Recommendations SNF Rehab Transportation Needs at Discharge Wheelchair/Cabulance,Stretcher /Ambulance
--- NOTE | 2020-02-01 11:11 | DIET.PN ---
Dietary Progress Note RD f/u for PCM. Pt tolerated ONS Nepro slushy last evening, consumed 10% breakfast today (cream of rice c butter, tea). Sending up 1/2 ONS Nepro slushy, SF jello, and broth for lunch. Pt refeeding labs holding steady (K+ 3.7, phos 2.8, Mg 1.9, BG slightly elevated 136, pt is weight stable, no indication of third spacing at this time), pts renal labs improving (eGFR 45.8 L, Cr 1.55 H) Pt reported to nursing difficulty c swallowing, awaiting SLT reccs. Will adjust dinner meal based on 1500 labs maintaining range ~450kcal/d.
[2020-02-01] MEDS: SODIUM CHLORIDE 0.9% 1,000 ML 100 ML IV (13:11)
--- NOTE | 2020-02-01 13:29 | P.PN_ITS ---
Subjective Subjective Date Patient Seen: 02/01/20 Time Patient Seen: 13:32 Interval history: Rusty Jauregui is a 59-year-old male with no known past medical history who was admitted with failure to thrive. He is seen for follow up today. He was started on clotrimazole troches for oral thrush. HIV testing was negative. He was seen by speech therapy and was cleared for a modified diet but they are requesting a modified barium swallow tomorrow if possible. Creatini ne improved today to 1.55 with IV fluids so CT scan was ordered. 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 Given cough these may represent micro a spiration events. There does not appear to be any metastatic disease at least on CT imaging. Patient was at least interested in discussing his options with a surgeon for possible treatments, so surgery was consulted today. Patient further endorsed interest in starting an antidepressant which will be started. Patient does not feel much improved today, still profoundly weak. He reports passing gas but states he has not had a bowel movement in a long time. Later in the day he has some worsening shortness of breath. Exam Vital Signs (past 8 hours): - 02/01/20 08:00 02/01/20 12:00 Temperature 98.4 F 97.6 F Pulse Rate 107 H 107 H Respiratory Rate 17 17 Blood Pressure 78/54 L 78/57 L Pulse Oximetry 95 90 L Oxygen Delivery Method Room Air Oxygen Flow Rate 0 Narrative Exam Narrative: GENERAL APPEARANCE: Cachectic appearing male, with significant muscle wasting, BMI of 11.3. No acute distress. SKIN: Inspection of the skin reveals purplish lesions on his anterior chest and arms, they are small, with slightly raised edges and slightly irregular borders and non blanchable. HEENT: Normocephalic atraumatic, extraocular muscles are intact, oropharynx with thrush, mucous membranes are moist, neck is supple without adenopathy NECK: thin, symmetric. There was no thyroid enlargement, and no tenderness, or masses were felt. CHEST: Can almost see all ribs, equal chest rise bilaterally LUNGS: Auscultation of the lungs revealed no wheezes, rhonchi, or rales. CARDIOVASCULAR: There was a regular rate and rhythm without any murmurs, gallops, rubs. Peripheral pulses were 2+ and symmetric. ABDOMEN: Somewhat firm and nodular feeling abdomen, slightly distended, no overt tenderness. No guarding or rebound. MUSCULOSKELETAL: There was no tenderness or effusions noted. Muscle strength was diminished throughout, very little muscle tone given wasting. EXTREMITIES: No cyanosis, clubbing or edema. NEUROLOGIC: Alert and oriented x 3. Somewhat flat affect but appropriate behavior. Diffuse lower extremity weakness, but grossly +5/5. Upper extremity strength is +5/5. Sensation to touch was normal. Objective Labs Result Diagrams: 02/01/20 05:05 02/01/20 05:05 Labs: Laboratory Results - last 24 hr 01/31/20 01/31/20 01/31/20 15:40 15:40 15:40 WBC RBC Hgb Hct MCV MCH MCHC RDW Plt Count Neut % (Auto) Lymph % (Auto) [place] % (Auto) Eos % (Auto) Baso % (Auto) Neut # (Auto) Lymph # (Auto) [place] # (Auto) Eos # (Auto) Baso # (Auto) Sodium 132 L Potassium 2.8 L Chloride 92 L Carbon Dioxide 20 L BUN 77 H Creatinine 2.10 H Estimated GFR 32.3 L BUN/Creatinine Ratio 36.7 H Glucose 103 Hemoglobin A1c Calcium 6.6 L Phosphorus Magnesium Iron TIBC % Saturation Transferrin Total Bilirubin Conjugated Bilirubin Unconjugated Bilirubin AST ALT Alkaline Phosphatase Troponin I 0.076 H Total Protein Albumin Globulin Albumin/Globulin Ratio Carcinoembryonic Ag 4.7 H Vitamin B12 Folate Procalcitonin TSH 1.71 Hep Bs Antigen Hepatitis C Antibody HIV 1&2 Ab/P24 Ag 4thGn Negative 01/31/20 02/01/20 02/01/20 15:40 05:05 05:05 WBC 7.3 RBC 3.13 L Hgb 10.5 L Hct 30.6 L MCV 97.7 MCH 33.4 MCHC 34.2 RDW 14.0 Plt Count 101 L Neut % (Auto) 87.7 H Lymph % (Auto) 9.0 L [place] % (Auto) 2.9 L Eos % (Auto) 0.0 L Baso % (Auto) 0.4 Neut # (Auto) 6400 Lymph # (Auto) 700 L [place] # (Auto) 200 Eos # (Auto) 0 Baso # (Auto) 0 Sodium Potassium Chloride Carbon Dioxide BUN Creatinine Estimated GFR BUN/Creatinine Ratio Glucose Hemoglobin A1c Calcium Phosphorus 5.5 H Magnesium 1.9 Iron TIBC % Saturation Transferrin Total Bilirubin Conjugated Bilirubin Unconjugated Bilirubin AST ALT Alkaline Phosphatase Troponin I Total Protein Albumin Globulin Albumin/Globulin Ratio Carcinoembryonic Ag Vitamin B12 Folate Procalcitonin 1.73 H TSH Hep Bs Antigen Hepatitis C Antibody HIV 1&2 Ab/P24 Ag 4thGn 02/01/20 02/01/20 02/01/20 05:05 05:05 05:05 WBC RBC Hgb Hct MCV MCH MCHC RDW Plt Count Neut % (Auto) Lymph % (Auto) [place] % (Auto) Eos % (Auto) Baso % (Auto) Neut # (Auto) Lymph # (Auto) [place] # (Auto) Eos # (Auto) Baso # (Auto) Sodium 136 L Potassium 3.7 Chloride 100 Carbon Dioxide 21 L BUN 77 H Creatinine 1.55 H Estimated GFR 45.8 L BUN/Creatinine Ratio 49.7 H Glucose 117 H Hemoglobin A1c 5.3 Calcium 7.4 L Phosphorus 2.8 D Magnesium 1.9 Iron TIBC % Saturation Transferrin Total Bilirubin 1.6 H Conjugated Bilirubin 0.1 Unconjugated Bilirubin 0.5 AST 25 ALT 8 Alkaline Phosphatase 61 Troponin I Total Protein 5.5 L Albumin 2.9 L Globulin 2.6 Albumin/Globulin Ratio 1.1 Carcinoembryonic Ag Vitamin B12 Folate Procalcitonin TSH Hep Bs Antigen Negative Hepatitis C Antibody Negative HIV 1&2 Ab/P24 Ag 4thGn 02/01/20 02/01/20 05:05 05:05 WBC RBC Hgb Hct MCV MCH MCHC RDW Plt Count Neut % (Auto) Lymph % (Auto) [place] % (Auto) Eos % (Auto) Baso % (Auto) Neut # (Auto) Lymph # (Auto) [place] # (Auto) Eos # (Auto) Baso # (Auto) Sodium Potassium Chloride Carbon Dioxide BUN Creatinine Estimated GFR BUN/Creatinine Ratio Glucose Hemoglobin A1c Calcium Phosphorus Magnesium Iron 16 L TIBC 152 L % Saturation 11 L Transferrin 82 L Total Bilirubin Conjugated Bilirubin Unconjugated Bilirubin AST ALT Alkaline Phosphatase Troponin I Total Protein Albumin Globulin Albumin/Globulin Ratio Carcinoembryonic Ag Vitamin B12 486 Folate 8.5 Procalcitonin TSH Hep Bs Antigen Hepatitis C Antibody HIV 1&2 Ab/P24 Ag 4thGn Assessment & Plan Assessment & Plan narrative: Rusty Jauregui is a 59-year-old male with no known past medical history who was admitted with failure to thrive. 1. Failure to thrive -patient with very little p.o. intake over the past few weeks, but symptoms have been progressive over the past 3 years or so. 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 -suspect acute worsening with hypokalemia, hyponatremia, elevated creatinine, and elevated troponin in the setting of oral thrush leading to further decreased p.o. intake further in the setting of likely malignancy. 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 Given cough with food these may represent micro aspiration events. There does not appear to be any metastatic disease at least on CT imaging. -Continue IV fluids, restart diet with caution for refeeding syndrome. Started on antibiotics for possible aspiration. -appreciate dietary and speech consultations. -continue clotrimazole gwen for oral thrush -CEA elevated at 4.7. Have consulted general surgery today. -HIV testing, hepatitis panel negative. -started on citalopram today for treatment of depression. 2. Hypokalemia, acute, present on admission, resolved - likely secondary to hypovolemia and decreased oral intake -patient was repleted in the emergency room, will continue to monitor and replete as necessary -Magnesium level was unremarkable. - continue telemetry, will repeat EKG today to recheck intervals. - continue IVF 3. Hyponatremia, likely acute, present on admission -mild hyponatremia with a level of 130 on admission improved to 136 today. Will continue normal saline 4. Acute kidney injury, present on admission, improved. -unknown baseline, and patient has not been to the doctor in many years. Suspect possible acute elevation in the setting decreased p.o. intake. CK was only mildly elevated and rhabdomyolysis is unlikely, although he has very little muscle left. Creatinine of 2.1 on admission improved to 1.55 today. -continue IV fluids with normal saline today as patient had CT imaging today with contrast. -continue to monitor creatinine, and avoid nephrotoxic medications 5. Elevated troponin, present on admission, improved. - likely elevated due to demand. No evidence of active ischemia on EKG and no chest pain. - with worsening shortness of breath today will order TTE. 6. Anemia, thrombocytopenia, present on admission. - suspect mixed picture given normocytic anemia with reports of GI bleeding and malnutrition. Iron panel did show iron deficiency anemia likely due to sigmoid mass. B12 is 486, Folate 8.5. - may be secondary to EtOH use in the past - I do suspect he is actually quite concentrated and his admission values of Hg of 12.4 and Plt of 131 will decrease with hydration. 7. Severe protein calorie malnutrition - BMI markedly decreased at 11.3, with recent weight loss and decreased PO intake. - appreciate dietary and speech consultation - MSB tomorrow depending on surgery consultation. 8. Oral thrush - clotrimazole gwen 5x daily. - HIV testing negative. - hepatitis panel ordered and initial results negative. 9. Sacral fractures, unknown chronicity, present on admission - likely old given prior falls and reported pain but may be acute with falls 2 days ago. Continue pain control as necessary with tylenol as needed. - PT/OT consultation. 10. Sigmoid mass - have consulted general surgery today regarding potential therapies. - CT imaging as noted in problem 1. - await formal recommendations. 11. depression, present on admission - started citalopram 10 mg daily today. Patient reports fatigue, feelings of sadness, lack of desire for food. Somewhat complicated by likely malignancy. 12. likely aspiration pneumonia, present on admission - given CT findings as discussed above, severe emphysema, and somewhat worsening shortness of breath today will start on zosyn therapy. Elevated procalcitonin on admission improved without therapy today so unclear if this is infectious or simply pneumonitis. 13. Emphysema - RT eval and treat - prn albuterol - CT imaging as noted above with severe emphysema. Code: DNR as discussed with the patient, surrogate decision maker is the patient's sister Dispo: Admitted under inpatient status as his stay is likely to exceed 2 midnights. DVT: Lovenox daily COVID 19: negative 01/30 Quality VTE Deep Vein Thrombosis/Pulmonary Embolism Present on Admission: No
--- NOTE | 2020-02-01 13:41 | ST.IPCSEOM ---
Visit Care Team Role Provider Type Chau Marks MD Other Providers Physician Specialty: General Surgery Address: [address] [place] [address], [address], [place], [address] Email: [email or web address] Barbara Izquierdo DO Emergency Provider Physician Referring Provider Specialty: Emergency Medicine Address: [address] [place] [address], [address] Email: [email or web address] Nain Rodriguez DO Admit Provider Physician Attending Provider Specialty: Internal Medicine Address: [address] [place] [address], [id number] Email: [email or web address] Past Medical History (Last Updated 01/31/20 @ 09:28 by Barbara Izquierdo DO) Patient denies medical problems (Acute Medical) Speech-Language Pathology Swallow Evaluation MOBILITY ARCHITECT MANAGER Clinical Swallow Evaluation Start: 02/01/20 12:36 Freq: Status: Active Protocol: Document 02/01/20 12:36 LL (Rec: 02/01/20 13:41 LL [id number]) Clinical Swallow Evaluation Session Time Visit Start Time 09:13 Visit Stop Time 09:28 Total Visit Minutes 15 Referral Referring Physician Nain Rodriguez DO Reason for Referral Swallowing difficulties Setting Assessment Location Acute Care Visit Type Note Type Initial Evaluation Next Note Type Next Note Type Treatment Note Patient Information Identification Type Name,ID Wristband History Per H & P: Rusty Jauregui is a 59-year-old male with no known past medical history who presented after a fall 2 days ago at home. He states he was trying to get up to use the restroom when he fell on the ground and had been trying to get his neighbors attention. He denies hitting his head when he fell he does have some skin abrasions on his arm. He denies any preceding nausea , dizziness, chest pain, shortness of breath. He has been very weak for many months . He states he has fallen approximately 3 times in the past 3 years but has never sought medical attention. On a prior fall he had severe pain on his buttock, but not during this episode. He is extremely cachectic stating that he has been unable to eat for the last 2 months because he has seemingly lost his sense of taste, and he has developed some pain in the middle of his throat with swallowing. Prior to this he reports less than less intake actually over the past 3 years . He states he does not go to the doctors and takes no medications. He lives alone but his sister has been checking on him intermittently . He has lost a lot of weight and complains of rectal bleeding and melena over the past few years, and he does complain some abdominal pressure but denies any pain. He denies any history of IV drug use but does endorse prior marijuana use, and significant alcohol intake up to 3/4 of a L of whiskey a day . He has not had a drink in the past 2 months because he has been unable to really tolerate any oral intake. Per dietary progress note: Pt reports usual adult weight as 155#, noticed he started losing weight 3y ago, has had severe progressive weight loss in past 2 months reporting dysgeusia (nothing tastes good, even my favorite food, pizza). Pt reports his neighbors supply him with food and beverages, he says he has plenty of food in his house but has no desire to eat. Pt states he has been subsisting on 20oz Pepsi (250kcals) per day for 2mo. Pt has reduced renal function at this time, expect phos labs to be elevated r/t diet of dark cola . Hospitalist and nursing note Thrush which pt was unaware of. When discussing food preferences in hospital, pt states pie or a milkshake sound good. Because of pts current state, expect refeeding syndrome, will limit intake per ASPEN reccs to ~ 10kcal/kg/d and replete refeeding labs. Subjective Observations Pt was sitting up in bed awake , alert and with nasal cannula (1 L). 02 sats at 98% at rest prior to oral intake. Pt reported that he has been experiencing swallowing difficulties over the past three years, resulting in severe malnutrition and weight loss. Pt reported pain when swallowing, coughing/throat clearing with food and liquid, lack of taste, and inability to tolerate any oral intake. Upon ST arrival, pt was consuming barium contrast for scheduled CT scan (929) with overt s/sx of aspiration present (e.g., coughing, wet vocal quality, throat clearing ). Pt agreeable to participate in ST evaluation. Evaluation Liquids Trialed Thin,Tutwiler Solids Trialed Puree Administration Type Tea Spoon,Cup Single Sip, Controlled Cup Sip,Straw,Self- Feeding Oral Impairment Mildly Impaired Oral Strategies Upright at 90 degrees Oral Phase Comments Oral Peripheral Exam: Symmetrical features. Generalized weakness. Buccal weakness / atrophy (sunken cheeks) likely due to progressive weight loss. Slow but adequate movements regarding ROM and coordination . Hyolaryngeal elevation was present on palpation. The pt was not able to perform a volitional swallow. Delayed swallow initiation (3-5 seconds) observed with puree texture and thin liquids. Slowed bolus prep and a/p propulsion. No oral residue observed. Pt is receiving treatment for thrush. Pharyngeal Impairment Severely Impaired Pharyngeal Strategies Sitting Upright (90 deg),Small Bites and Sips Pharyngeal Phase Comments Pt presented with a weak volitional cough and throat clearing throughout all oral intake. Pt able to self-feed. Thin liquid by straw, nectar thick liquid by cup, and puree texture by spoon resulted in continuous throat clearing, coughing, and wet vocal quality. Chin tuck attempted, however, patient continued to cough and throat clear. Controlled bolus size reduced severity of cough and throat clearing. Pt quickly fatigued after oral intake and reported that he becomes extremely tired after eating. 02 sats at 95%-96% during oral intake. Pt's respiratory sufficiency appeared to have been moderately impaired and puts him at further risk of aspiration. Findings Dysphagia Type Mild oral and severe pharyngeal dysphagia Rehabilitation Potential Fair Impressions Pt presents with mild oral and severe pharyngeal dysphagia characterized by generalized weakness, delayed bolus prep, delayed swallow initiation, continuous throat clearing, coughing, and wet vocal quality. Pt also presents with progressive weight loss and malnutrition. Given pt's presentation at bedside, an MBSS is recommended to further assess pharyngeal function, determine LRD, and detect presence of aspiration. MOBILITY ARCHITECT MANAGER spoke with hospitalist and MBSS will be considered within the next few days. NPO not recommended. Without oral intake at this time, patient is at risk for further inadequate nutrition/ hydration. General aspiration precautions recommended. Diet Recommendations Liquids Order Thin Diet Order Dysphagia Blenderized Medication Recommendations As Tolerated,Crushed in Carrier Aspiration Precautions Recommended Precautions Upright at 90 Degrees,Small Bites/Sips Treatment Plan Placement Recommendations after Usp Facility Discharge Appropriate for Therapy Yes Therapy Recommendations 1. Ongoing assessment with advancement of diet as appropriate. 2. Ongoing pt/family education /training of nature / severity of swallowing impairments, compensatory swallow strategies, and general aspiration precautions. Dysphagia Goals 1. Patient will tolerate least restrictive diet without any overt s/sx of aspiration to meet his nutrition and dietary needs. 2. Patient will participate in instrumental swallow assessment (MBSS) as appropriate. 3. Patient will verbalize understanding of education for nature / severity of swallowing impairments, compensatory swallow strategies, and general aspiration precautions.
--- NOTE | 2020-02-01 14:16 | CM.IDA ---
Initial DCP Assessment Note Patient is a 59 yo male, resident of [place]. EMS brought patient in after he attempted to get up and use the BR and fell to the ground (2 days ago?) patient then attempted to get attention of his neighbor (who placed call to EMS?). PCP: Does not have PCP Payer: MCR/MIKO Met patient this morning during multidisciplinary rounds, introduced LEARNING AND DEVELOPMENT MANAGER role and suggested return to complete initial DCP assessment. Attempted bedside assess this afternoon and RN Virginia, CROW Ragland in room as patient had become extremely SOB. Will return tomorrow to complete initial DCP assessment, of note, patient seen by numerous professionals today orders/consults pending are surgery, RT/CERAMIC TILER/PT/OT, network specialist, and imaging. SNF rehab recommended by therapy team. According to chart review: Patient lives alone in [place]. Sister Nancy is patient's only contact (number?) and checks on patient periodically. Patient has not seen a doctor for at least 10 years. Patient is extremely cachectic, severe protein calorie malnutrition- states nothing tastes good and has been living off of Pepsi x2 months. Patient admits to drinking approx 3/4 L of whiskey a day up until 2 months ago when he could no longer tolerate oral intake. Patient admits to sever weakness/fatigue. Patient reports he has fallen approx 3 times in the last 3 years and has multiple sacral fractures. Patient also reports rectal bleeding that has spanned years. Patient has not sought medical treatment for any of the above items. Patient is in process of a full medical w/u. Dr Rodriguez has started po Celexa today with patient's permission. CT imaging shows sigmoid mass, formal recommendations pending from surgery. LEARNING AND DEVELOPMENT MANAGER team will need to follow very closely, will plan to begin full DCP assessment tomorrow at bedside LATANYA Love
[2020-02-01] MEDS: PIPERACILLIN-TAZO 2.25 GM/50 ML FROZ.PIGGY IV ×2 (14:22→21:41)
[2020-02-01] MEDS: MORPHINE 2 MG/ML INJ IV (14:22)
--- NOTE | 2020-02-01 14:23 | OT.IPNOTE ---
Per nursing not medically appropriate to be seen for OT at this time, therefore HOLD for OT eval and check on pt tomorrow.
[2020-02-01] MEDS: ALBUTEROL 2.5 MG/3 ML NEB (ADULT) INH (14:28)
--- NOTE | 2020-02-01 15:27 | P.CONS_ITS ---
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 The patient has been losing weight he says for at least 3 years. He has been able to gain it back. He is a long-time smoker with a 40 pack-year history of smoking. He apparently used to drink heavily is well but has been able to for the last few months. In addition to his progressive weight loss he is passing a lot of flatus but not having any significantly large bowel movements. He has had abdominal pain but it is very difficult for me to tease that out of him as well as any symptoms related to it. His father of colon cancer at age 57. He has been neglecting his health for a prolonged period. Meds Home Medications and Allergies Home Medications Medication Instructions Recorded Confirmed Type No Known Home Medications 01/31/20 01/31/20 History Allergies Allergy/AdvReac Type Severity Reaction Status Date / Time No Known Drug Allergies Allergy Verified 01/31/20 09:30 Review of Systems Review of Systems Narrative: Has been having trouble swallowing. Has a sore mouth and throat. He has been told he has thrush. Has chronic breathing problems related to a 40 pack-year history of smoking. He does get chest pain and intermittent tachycardia that he relates to anxiety. No history of murmurs. Abdomen is he says presently is abdomen is smaller than usual. He says sometimes it looks like he is . This has been going on for at least 6 months. He is passing flatus regularly and in large amounts he says but has not had a normal bowel movement for a long while. It is difficult for me to pin that down. His urine output is decreased he says. No burning when he pees no blood in his urine. No seizures or blackouts. Does suffer from anxiety and depression. Bruises easily. Skin tears easily. Does not have regular external blood loss anywhere. Exam Vital Signs (past 8 hours): - 02/01/20 08:00 02/01/20 12:00 02/01/20 14:19 Temperature 98.4 F 97.6 F Pulse Rate 107 H 107 H Respiratory Rate 17 17 Blood Pressure 78/54 L 78/57 L Pulse Oximetry 95 90 L 92 02/01/20 14:43 Temperature Pulse Rate 110 H Respiratory Rate 28 H Blood Pressure Pulse Oximetry 91 Oxygen Delivery Method Nasal Cannula Oxygen Flow Rate 4 Narrative Exam Narrative: Cachectic seriously malnourished gentleman with obvious protein calorie malnutrition. Eyes are nonicteric. Conjunctivae are pale. External ears without lesion. Oral mucosa either white spots on the back of his tongue. His uvula elevates in the midline. No obvious open lesions in his mouth. I feel no nodes in the neck or supraclavicular areas. Trachea is midline mobile. Thyroid isn't enlarged. No masses in the neck or thyroid. Lungs clear without wheezing or rhonchi. Hyper resonant to percussion. Heart regular rate and rhythm without murmur gallop. No bruit in the neck. Abdomen is distended soft nontender. There are no ventral or inguinal hernias appreciated. His abdomen however was quite distended though it is not tender to palpation at this time. He has some small shotty right inguinal lymph nodes noted. There is bruising over his right groin. Patient has bruising about his upper extremities. He has very little muscle mass anywhere on his body. There is no subcu fat. He does seem to be alert and oriented. His affect is flat. Objective Imaging CT scan - abdomen: My impression: No obvious metastatic disease in his chest or abdomen. He a peers that he may have a mass in his sigmoid causing an obstructive process. Given his history admit it is probably not complete. Labs Result Diagrams: 02/01/20 05:05 02/01/20 05:05 Labs: Laboratory Results - last 24 hr 01/31/20 01/31/20 01/31/20 15:40 15:40 15:40 WBC RBC Hgb Hct MCV MCH MCHC RDW Plt Count Neut % (Auto) Lymph % (Auto) [place] % (Auto) Eos % (Auto) Baso % (Auto) Neut # (Auto) Lymph # (Auto) [place] # (Auto) Eos # (Auto) Baso # (Auto) Sodium 132 L Potassium 2.8 L Chloride 92 L Carbon Dioxide 20 L BUN 77 H Creatinine 2.10 H Estimated GFR 32.3 L BUN/Creatinine Ratio 36.7 H Glucose 103 Hemoglobin A1c Calcium 6.6 L Phosphorus Magnesium Iron TIBC % Saturation Transferrin Total Bilirubin Conjugated Bilirubin Unconjugated Bilirubin AST ALT Alkaline Phosphatase Troponin I 0.076 H Total Protein Albumin Globulin Albumin/Globulin Ratio Carcinoembryonic Ag 4.7 H Vitamin B12 Folate Procalcitonin TSH 1.71 Hep Bs Antigen Hepatitis C Antibody HIV 1&2 Ab/P24 Ag 4thGn Negative 01/31/20 02/01/20 02/01/20 15:40 05:05 05:05 WBC 7.3 RBC 3.13 L Hgb 10.5 L Hct 30.6 L MCV 97.7 MCH 33.4 MCHC 34.2 RDW 14.0 Plt Count 101 L Neut % (Auto) 87.7 H Lymph % (Auto) 9.0 L [place] % (Auto) 2.9 L Eos % (Auto) 0.0 L Baso % (Auto) 0.4 Neut # (Auto) 6400 Lymph # (Auto) 700 L [place] # (Auto) 200 Eos # (Auto) 0 Baso # (Auto) 0 Sodium Potassium Chloride Carbon Dioxide BUN Creatinine Estimated GFR BUN/Creatinine Ratio Glucose Hemoglobin A1c Calcium Phosphorus 5.5 H Magnesium 1.9 Iron TIBC % Saturation Transferrin Total Bilirubin Conjugated Bilirubin Unconjugated Bilirubin AST ALT Alkaline Phosphatase Troponin I Total Protein Albumin Globulin Albumin/Globulin Ratio Carcinoembryonic Ag Vitamin B12 Folate Procalcitonin 1.73 H TSH Hep Bs Antigen Hepatitis C Antibody HIV 1&2 Ab/P24 Ag 4thGn 02/01/20 02/01/20 02/01/20 05:05 05:05 05:05 WBC RBC Hgb Hct MCV MCH MCHC RDW Plt Count Neut % (Auto) Lymph % (Auto) [place] % (Auto) Eos % (Auto) Baso % (Auto) Neut # (Auto) Lymph # (Auto) [place] # (Auto) Eos # (Auto) Baso # (Auto) Sodium 136 L Potassium 3.7 Chloride 100 Carbon Dioxide 21 L BUN 77 H Creatinine 1.55 H Estimated GFR 45.8 L BUN/Creatinine Ratio 49.7 H Glucose 117 H Hemoglobin A1c 5.3 Calcium 7.4 L Phosphorus 2.8 D Magnesium 1.9 Iron TIBC % Saturation Transferrin Total Bilirubin 1.6 H Conjugated Bilirubin 0.1 Unconjugated Bilirubin 0.5 AST 25 ALT 8 Alkaline Phosphatase 61 Troponin I Total Protein 5.5 L Albumin 2.9 L Globulin 2.6 Albumin/Globulin Ratio 1.1 Carcinoembryonic Ag Vitamin B12 Folate Procalcitonin TSH Hep Bs Antigen Negative Hepatitis C Antibody Negative HIV 1&2 Ab/P24 Ag 4thGn 02/01/20 02/01/20 05:05 05:05 WBC RBC Hgb Hct MCV MCH MCHC RDW Plt Count Neut % (Auto) Lymph % (Auto) [place] % (Auto) Eos % (Auto) Baso % (Auto) Neut # (Auto) Lymph # (Auto) [place] # (Auto) Eos # (Auto) Baso # (Auto) Sodium Potassium Chloride Carbon Dioxide BUN Creatinine Estimated GFR BUN/Creatinine Ratio Glucose Hemoglobin A1c Calcium Phosphorus Magnesium Iron 16 L TIBC 152 L % Saturation 11 L Transferrin 82 L Total Bilirubin Conjugated Bilirubin Unconjugated Bilirubin AST ALT Alkaline Phosphatase Troponin I Total Protein Albumin Globulin Albumin/Globulin Ratio Carcinoembryonic Ag Vitamin B12 486 Folate 8.5 Procalcitonin TSH Hep Bs Antigen Hepatitis C Antibody HIV 1&2 Ab/P24 Ag 4thGn Assessment & Plan Assessment & Plan narrative: Patient with a partial but probably near complete large bowel obstruction likely due to tumor. His CEA is elevated to 4.7. CT scan shows a probable mass that enhances and there is no clear-cut evidence of metastatic disease. I offered the patient an attempt at a flex sig after a fleets enema but the patient really was not interested in having that today. He says he has exhausted from the CT and just wants to be left alone right now. He is not certain he wants to do anything about the mass that we see or the obstructive process. He watched his father of cancer of the colon at age 57. He says he has lived a long life at age 59 and not sure that he wants to do anything about this. He does have chronic pulmonary disease and emphysema re lated to smoking and may have some cardiac issues as well. He is anemic with chronic iron deficiency most likely related to this mass. Frankly, given his examination his cachexia and his other medical problems he would be at high risk of any intervention but I suspect he is going to completely obstruct in the near future in either perforate or require an emergency operation in end up with an ostomy. I explained this to him. I explained that waiting may not be the best option. I explained that he is only 59 in if we could remove this he could probably Eat and live another 10 years. I talked with Dr. Key. He plans to order an echocardiogram and have the psychiatrist see the patient. We will follow along and see if he changes his mind or when he ultimately decides. If he does proceed with an operation he should probably have a PICC line placed and begun on TPN. If he opts for no operation he should probably be referred to hospice. Given his present condition I do not think he is long for the world without intervention.
--- NOTE | 2020-02-01 16:49 | DIET.PN ---
Dietary Progress Note RD f/u pt is tolerating ONS Nepro slushies, will send pureed scrambled egg and apple sauce for breakfast tomorrow and increase kcals to 650 with a focus on protein foods if renal labs continue to improve. Per Dr. Marks's note, pt has near obstructing sigmoid mass, is unsure he wants treatment. Care will be taken by kitchen to avoid foods and textures which may completely block sigmoid colon. Nursing staff to record % POs to ensure pt meeting kcal goal daily.
[2020-02-01] MEDS: ALBUTEROL/IPRATROPIUM 3 ML AMPUL INH (19:29)
--- NOTE | 2020-02-01 22:43 | PC.NURSE ---
LATE NOTE,PATIENT IS REFUSING TO KEEP TELE IN PLACE,ORDERS TO D/C RECEIVED.CBG AC/HS ALSO D/CD PER DENISHA LUCIA.PATIENT IS REFUSING AT TIMES TO TURN SIDE TO SIDE.
[2020-02-02] VITALS (11 sets, daily range): BP systolic 72–142; BP diastolic 49–67; PULSE 52–112; RESP 16–26; TEMP 35.9–37.1; O2SAT 92–98
[2020-02-02] MEDS: SODIUM CHLORIDE 0.9% 1,000 ML 100 ML IV (00:49)
--- NOTE | 2020-02-02 02:15 | PC.NURSE ---
Addendum entered by Nikki Bobo R.N. 02/02/20 07:06: Called into room and found sheet and towel covered in brown liquid. States he vomited but denies feeling nauseated. States I want the surgeon called. When asked if he has decided to have surgery and he states no, I just want to be put out. Addendum entered by Nikki Bobo R.N. 02/02/20 04:50: Noted that BP checked at 0330 was 77/49 so now rechecked and is 75/53 on right arm and 82/50 on left arm; NIB INSPECTOR, Manny, informed and new order received for fluid bolus. Addendum entered by Nikki Bobo R.N. 02/02/20 03:02: Oximeter alarming and noted sats intermittently dropping down into mid 80's so restarted on oxygen per NC at 1L/min. Original Note: 0030 Patient seen and assessed. Is oriented except did not know the day of the month. Breath sounds diminished left more so than right and has expiratory wheezing in right mid/lower lobes. Denies SOB and refusing oxygen; unable to get oximetry reading initially so RT came up and placed oximeter and sat was at 95%. HRR but still tachy at 113 bpm. BP improved at 123/67. Denies nausea. BT present; abdomen is still distended and semi firm to touch. Denies pain. Indwelling catheter is patent; urine is tea colored with sediment. Dressing to right forearm is CDI. Allevyn dressing to sacral area is CDI. Thoracic spine/hip pressure areas darker pink tonight; has waffle cushion and is being repositioned q2h. Had SCD's on at shift change but complaining of not being able to move with them on and being uncomfortable so removed per his request; reminded to ankle wave. Fall risk score is high and bed alarm is activated.
[2020-02-02 03:39] LABS: Hepatitis B Core Antibody Positive (Negative)
[2020-02-02] MEDS: LACTATED RINGERS 500 ML IV (05:18)
[2020-02-02] MEDS: CLOTRIMAZOLE TROCHE 10 MG PO ×3 (05:21→14:26)
[2020-02-02 05:37] LABS: Add Manual Diff / Slide Review NO; Basophils Absolute Auto 0 /uL (0-100); Basophils Percent Auto 0.2 % (0-2); Eosinophils Absolute Auto 0 /uL (0-450); Hematocrit 28.1 % (41-53); Hemoglobin 9.7 g/dL (13.5-17.5); Lymphocytes Absolute Auto 700 /uL (1100-4500); Lymphocytes Percent Auto 9.6 % (25-40); Mean Corpuscular HGB Conc 34.6 % (30-36); Mean Corpuscular Hemoglobin 33.7 PG (26-34); Mean Corpuscular Volume 97.6 fL (80-100); Monocytes Absolute Auto 200 /uL (0-900); Monocytes Percent Auto 3.2 % (3-14); Neutrophils Absolute Auto 6500 /uL (1500-7000); Platelet Count 62 X10^3/uL (150-400); Red Blood Cell Count 2.88 X10^6/uL (4.5-5.9); Red Cell Distribution Width 13.8 % (11.6-14.8); White Blood Cell Count 7.5 X10^3/uL (4.5-11.0)
[2020-02-02 05:46] LABS: Alanine Aminotransferase 10 IU/L (<50); Albumin 2.6 g/dL (3.5-5.0); Alkaline Phosphatase 67 U/L (38-126); Aspartate Aminotransferase 27 IU/L (17-59); Bilirubin Total 1.1 mg/dL (0.2-1.3); Bilirubin Unconjugated 0.4 mg/dL (0.0-1.1); Blood Urea Nitrogen 67 mg/dL (9-20); Calcium 7.9 mg/dL (8.4-10.2); Carbon Dioxide 26 mmol/L (22-32); Chloride 105 mmol/L (98-107); Estimated Glomerular Filt Rate > 60.0 mL/min (>60); Globulin 2.6 g/dL (1.7-4.1); Glucose 122 mg/dL (80-110); HEMOLYSIS < 15 (0-50); Magnesium 1.8 mg/dL (1.6-2.3); Phosphorous 2.5 mg/dL (2.3-3.7); Potassium 3.2 mmol/L (3.4-5.1); Sodium 138 mmol/L (137-145); Total Protein 5.2 g/dL (6.3-8.2)
[2020-02-02] MEDS: PIPERACILLIN-TAZO 2.25 GM/50 ML FROZ.PIGGY IV ×3 (06:36→18:31)
[2020-02-02 07:40] LABS: Hepatitis B Surf Ab Qualitativ Reactive (.)
[2020-02-02] MEDS: CITALOPRAM 10 MG TABLET PO (08:58)
[2020-02-02] MEDS: ENOXAPARIN 40 MG/0.4 ML SYRINGE SUBCUT (08:58)
[2020-02-02] MEDS: ALBUTEROL/IPRATROPIUM 3 ML AMPUL INH ×2 (09:03→11:17)
[2020-02-02] MEDS: MORPHINE 2 MG/ML INJ IV (09:04)
[2020-02-02] MEDS: MAGNESIUM SULFATE 2 GM/50 ML PIGGYBACK IV (09:06)
--- NOTE | 2020-02-02 10:29 | P.PN_ITS ---
Subjective Subjective Date Patient Seen: 02/02/20 Interval history: Rusty Jauregui is a 59-year-old male with a past medical history significant for alcohol dependence in remission and nicotine dependence who presented to the ED with severe weakness, cachexia and inability to get up from floor after a fall x 2 days The patient is resting comfortably in bed. He continues to aspirate with clear liquids (pureed and thin). Discontinued honey thick liquids due to risk of obstruction per coloring room man and speech therapist. He states he does not want to be poked anymore and requests lab draws to be stopped due to bruising in setting of worsening thrombocytopenia. Plan to place PICC line for lab draws and nutritional support with TPN and he is agreeable to this. Plan for psychiatry evaluation this afternoon to assess decision-making capacity. Repeat EKG patients QTc is no longer prolonged and citalopram is safe to continue. Patient is still deciding on whether or not have a surgery to remove colon mass or endoscopy with stent placement for palliation but seems to be leaning toward doing nothing and palliative care and potentially going home on hospice. Several physicians have discussed his colon mass and the ability to treat with surgical removal and the likelihood of survival. However, due his severe malnourishment it is not without risk and plan to start TPN to help his potential to heal if surgery is pursued. The patient's abdomen is still firm and mildly distended and he is passing flatus but no BM for a long time he reports. He is voiding via becerra catheter without difficulty. Exam Vital Signs (past 8 hours): - 02/02/20 03:30 02/02/20 04:50 02/02/20 05:22 Temperature 97.8 F Pulse Rate 112 H Respiratory Rate 18 Blood Pressure 77/49 L 82/50 L Pulse Oximetry 94 98 02/02/20 08:00 Temperature 98.7 F Pulse Rate 100 H Respiratory Rate 16 Blood Pressure 86/53 L Pulse Oximetry 93 Oxygen Delivery Method Nasal Cannula Oxygen Flow Rate 0 Narrative Exam Narrative: General: Older severely cachetic and emaciated appearing male lying in bed and in no acute distress, severely depressed but appropriately interactive. HEENT: Normocephalic, atraumatic. External ears without defect. Pupils equal, round, and reactive to light. Anicteric sclerae, moist conjunctivae, and no lid lag. Oropharynx free of erythema and cobble stoning with moist mucosa. Bitemporal in full body severe muscle and subcutaneous fat wasting. Neck: Full range of motion. No jugular venous distension. No lymphadenopathy or thyromegaly. Cardiovascular: Bony protrusion of clavicle and ribs makes auscultation difficult but appears to be regular rate and rhythm without murmurs, rubs, or gallops appreciated. Pulmonary: Coarse upper airway rhonchi otherwise clear to auscultation bilaterally. No crackles or wheezes. Normal respiratory effort with no use of accessory muscles. Abdomen: Abdomen firm, mild distention, bowel sounds hypoactive, nontender. Extremities: No clubbing, cyanosis, or edema. No muscle mass on extremities. Scattered ecchymoses spread throughout upper body. Neurological: Cranial nerves grossly intact. Psychiatric: Severely depressed mood and flat affect. Alert and oriented to person, place, and time. Objective Labs Result Diagrams: 02/04/20 04:20 02/04/20 04:20 Labs: Laboratory Results - last 24 hr 02/01/20 02/01/20 02/02/20 05:05 05:05 05:05 WBC 7.5 RBC 2.88 L Hgb 9.7 L Hct 28.1 L MCV 97.6 MCH 33.7 MCHC 34.6 RDW 13.8 Plt Count 62 L Neut % (Auto) 87.0 H Lymph % (Auto) 9.6 L [place] % (Auto) 3.2 Eos % (Auto) 0.0 L Baso % (Auto) 0.2 Neut # (Auto) 6500 Lymph # (Auto) 700 L [place] # (Auto) 200 Eos # (Auto) 0 Baso # (Auto) 0 Sodium Potassium Chloride Carbon Dioxide BUN Creatinine Estimated GFR BUN/Creatinine Ratio Glucose Calcium Phosphorus Magnesium Total Bilirubin Conjugated Bilirubin Unconjugated Bilirubin AST ALT Alkaline Phosphatase Total Protein Albumin Globulin Albumin/Globulin Ratio Procalcitonin Hep Bs Antibody Reactive Hep B Core Total Ab Positive A 02/02/20 02/02/20 05:05 05:05 WBC RBC Hgb Hct MCV MCH MCHC RDW Plt Count Neut % (Auto) Lymph % (Auto) [place] % (Auto) Eos % (Auto) Baso % (Auto) Neut # (Auto) Lymph # (Auto) [place] # (Auto) Eos # (Auto) Baso # (Auto) Sodium 138 Potassium 3.2 L Chloride 105 Carbon Dioxide 26 BUN 67 H Creatinine 1.00 Estimated GFR > 60.0 BUN/Creatinine Ratio 67.0 H Glucose 122 H Calcium 7.9 L Phosphorus 2.5 Magnesium 1.8 Total Bilirubin 1.1 Conjugated Bilirubin 0.0 Unconjugated Bilirubin 0.4 AST 27 ALT 10 Alkaline Phosphatase 67 Total Protein 5.2 L Albumin 2.6 L Globulin 2.6 Albumin/Globulin Ratio 1.0 Procalcitonin 2.30 H Hep Bs Antibody Hep B Core Total Ab Assessment & Plan Assessment & Plan narrative: Rusty Jauregui is a 59-year-old male with a past medical history significant for alcohol dependence in remission and nicotine dependence who presented to the ED with severe weakness, cachexia and inability to get up from floor after a fall x 2 days 1. Failure to thrive with severe protein calorie malnutrition, severe cachexia, dehydration, and electrolyte derangement, likely acute on chronic, present on admission. Active. -BMI 11.3. -Patient with very little PO intake over the past few weeks, but symptoms have been progressive over the past 3-5 years. 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 Likely secondary to alcohol dependence recently in remission, severe depression, and partial obstructing sigmoid mass. -CT chest, abdomen and pelvis with contrast demonstrated partially obstructing neoplasm in the proximal sigmoid, severe emphysema, and multiple areas of parenchymal fibrosis which also may be infectious or post inflammatory. -Continue IV fluid hydration with D5NS at 100 mL/hr, electrolyte monitoring (sodium, potassium, magnesium and phosphorus) and repletion, continue a clear liquid diet with pureed/thin diet due to concern for sigmoid mass complete obstruction and perforation and TPN per dietitian recommendations with caution for refeeding syndrome. Started on antibiotics for possible aspiration. -Continue dietitian and speech therapy evaluation and treatment. 2. Sigmoid mass with partial colon obstruction, present on admission. Active. -CT chest, abdomen and pelvis with contrast demonstrated partially obstructing neoplasm in the proximal sigmoid, severe emphysema, and multiple areas of parenchymal fibrosis which also may be infectious or post inflammatory. There does not appear to be any metastatic disease at least on CT imaging. -CEA elevated at 4.7. -Consulted general surgery, Dr. Marks, who recommends sigmoidectomy with probable colostomy. The patient is high risk surgical candidate due to severe malnourishment. There is also concern that the patient will have complete obstruction with perforation in near future if no medical intervention is pursued. The patient has not made a decision whether to continue full medical treatment with nutritional repletion and planned surgery for sigmoid resection versus palliative care and discontinue all medical intervention. Patient has prior experience watching his father with colon cancer endure aggressive medical treatment and what he perceived as undo suffering. He has significant aversion to colostomies. -Consulted psychiatry, Dr. Levine, to assess the patient is severe depression and decision-making capacity. We appreciate her time and recommendations. 3. Aspiration pneumonia, in setting of severe emphysema and severe protein calorie malnutrition with full body muscle and subcutaneous fat wasting, present on admission. Active. -Patient has severe protein calorie malnutrition with full body muscle and subcutaneous fat wasting with oropharyngeal weakness. -CT chest, abdomen and pelvis with contrast demonstrated partially obstructing neoplasm in the proximal sigmoid, severe emphysema, and multiple areas of parenchymal fibrosis which also may be infectious or post inflammatory. -Continue dietitian and speech therapy evaluation and treatment. -Continue renally dose Zosyn 2.25 g every 6 hours. -Continue morphine 2 mg every 2 hours as needed for shortness of breath or severe breakthrough pain as below. -Continue respiratory therapy evaluation and treatment. May use supplemental oxygen as necessary to maintain oxygen saturations 88-92%. Continue DuoNebs every 4 hours and albuterol nebs every 2 hours as needed for shortness of breath or wheezing. 4. Acute kidney injury, present on admission. Resolved. -Likely secondary to severe dehydration, malnourishment, and probable rhabdomy olysis although CK was only mildly elevated at 272 patient has severe cachexia with full body muscle and subcutaneous fat wasting therefore likelihood of significant CK elevation is improbable. -Initial creatinine 2.1. Unknown baseline creatinine. Creatinine trended down to normal now 1.0. -Continue IV fluid hydration as above. -Avoid nephrotoxic agents and renally dose medications. -Continue to monitor creatinine daily. 5. Elevated troponin, present on admission. Resolved. -Likely secondary to demand ischemia from severe malnourished min dehydration. -Patient denies chest pain or pressure. -Initial troponin 0.101 and trended down with 0.076 with IV fluid hydration. No need to further trend. -EKG demonstrated normal sinus rhythm without acute ischemic changes such as ST elevation or depression. -Ordered Echocardiogram pending. 6. Normocytic anemia and thrombocytopenia, acuity unclear, present on admission. Active. -Multifactorial and secondary to possible GI bleed from sigmoid mass and bone marrow suppression from severe malnourishment. Patient also likely hemoconcentrated due to dehydration and blood counts will likely plummet. -Initial hemoglobin 12.4 and platelets 131. Blood counts trending down with hemoglobin 9.7 and platelets 62. Transfusion goal hemoglobin < 8.0 and platelets < 20 or significant bleeding. Hold VTE if platelets under 50 or significant bleeding. -Iron panel demonstrated iron deficiency anemia likely due to sigmoid mass. -B12 normal at 486 and folate normal at 8.5. -Continue to monitor CBC daily. 7. Severe major depressive disorder, present on admission. Active. -Started citalopram 10 mg daily today. Patient reports fatigue, feelings of sadness, lack of desire for food which is somewhat complicated by likely malignancy. -Consulted psychiatry, Dr. Levine, to assess the patient is severe depression and decision-making capacity. We appreciate her time and recommendations. 8. Oral thrush, acuity unclear, present on admission. Resolving. -HIV and hepatitis-C negative. -Continue clotrimazole gwen 5x daily. 9. Sacral fractures, unknown chronicity, present on admission -Likely old given prior falls and reported pain but may be acute with a fall 2 days prior to admission. -Continue pain control as necessary with acetaminophen 650 mg every 6 hours as needed for mild pain, oxycodone 5 mg every 6 hours for [id number] pain and morphine 2 mg every 2 hours as needed for severe breakthrough pain. -Attempted physical and occupational therapy evaluation and treatment but patient declined. Code status: DNR/DNI as discussed with the patient, surrogate decision maker is the patient's sister VTE prophylaxis: Enoxaparin, SCDs Disposition: Patient remains hospitalized pending decision to treat partial obstructing sigmoid mass or discontinue medical intervention and pursue palliative care. Quality VTE Deep Vein Thrombosis/Pulmonary Embolism Present on Admission: No
--- NOTE | 2020-02-02 10:37 | OT.IPNOTE ---
Discharge pt from OT services as pt wanting to be left alone.
--- NOTE | 2020-02-02 11:18 | PM.PN.1 ---
Subjective Subjective Date Patient Seen: 02/02/20 Time Patient Seen: 11:18 Interval history: No acute events overnight. Pt denies pain. Passing gas but no stool. Exam Vital Signs (past 8 hours): - 02/02/20 03:30 02/02/20 04:50 02/02/20 05:22 Temperature 97.8 F Pulse Rate 112 H Respiratory Rate 18 Blood Pressure 77/49 L 82/50 L Pulse Oximetry 94 98 02/02/20 08:00 Temperature 98.7 F Pulse Rate 100 H Respiratory Rate 16 Blood Pressure 86/53 L Pulse Oximetry 93 Oxygen Delivery Method Nasal Cannula Oxygen Flow Rate 0 Narrative Exam Narrative: GENERAL APPEARANCE: Cachectic appearing male, with significant muscle wasting, BMI of 11.3. Appears older than stated age. No acute distress. SKIN: Inspection of the skin reveals purplish lesions on his anterior chest and arms, they are small, with slightly raised edges and slightly irregular borders and non blanchable. HEENT: Normocephalic atraumatic, extraocular muscles are intact, mucous membranes are moist, neck is supple without adenopathy; voice is abnormal c/w mild lingual or pharyngeal edema NECK: thin, symmetric. There was no thyroid enlargement, and no tenderness, or masses were felt. CHEST: Can almost see all ribs, equal chest rise bilaterally LUNGS: Non tachypneic; breathing comfortably on room air CARDIOVASCULAR: mild tachycardia at 100; regular ABDOMEN: Soft, distended, nontender. No hernias or passes palpated. MUSCULOSKELETAL: There was no tenderness or effusions noted. Muscle strength was diminished throughout, very little muscle tone given wasting. EXTREMITIES: No cyanosis, clubbing or edema. Skin: numerous scattered ecchymoses on forearms and chest BL NEUROLOGIC: Alert and oriented x 3. Somewhat flat affect but appropriate behavior. Grossly normal cranial nerves and extermities Objective Imaging CT scan - abdomen: Radiologist's impression: [address] [address] [address] Scan Report Signed Patient: Rusty Jauregui LMR#: [id number] : 9Acct:[id number] Age/Sex: 59 / MDate of Service: 02/01/20 Loc: AH928-1 Accession Number: [id number] Procedure: CT chest abd pel w con Ordering Provider: Nain Rodriguez D.O. PROCEDURE: CT CHEST ABD PEL W CON INDICATIONS: severe cachexia, weight loss, elevated CEA TECHNIQUE: After the administration of oral and intravenous contrast, 5 mm thick sections acquired from the lung apices to the symphysis. 5 mm coronal and sagittal reformats were performed, with additional 7 mm coronal MIP reformats through the lungs. For radiation dose reduction, the following was used: automated exposure control, adjustment of mA and/or kV according to patient size. COMPARISON: None. FINDINGS: Image quality: Excellent. CHEST: Lungs and pleura: The lungs are hyperinflated and there are severe upper lobe emphysematous changes. Multifocal bilateral areas of patchy parenchymal opacity and focal fibrotic changes are present in the perihilar regions bilaterally. There is a more rounded focal area of parenchymal density in the superior segment right upper lobe measuring about 1.3 cm. There is mild peribronchial thickening in the right lower lobe. Mediastinum: Heart size is normal. Moderate coronary artery calcification. No pericardial effusion. No mediastinal or hilar adenopathy by size criteria. The ascending aorta is ectatic measuring 3.9 cm in AP diameter. The remainder of the thoracic aorta and central pulmonary arteries are normal in size. Esophagus is normal in caliber. No hiatal hernia. Chest wall: No axillary or supraclavicular adenopathy by size criteria. Thyroid gland appears normal . ABDOMEN: Solid organs: Liver is normal in size and enhancement. Gallbladder is unremarkable . Biliary system is non dilated. Pancreas enhances normally. Spleen is normal in size and enhancement. No adrenal nodules. Kidneys demonstrate normal size and enhancement, without hydronephrosis. Peritoneum and bowel: The stomach is distended with fluid. There is significant distention of the colon loops with air-fluid levels. This extends to the level of the proximal sigmoid colon where there is suggestion of an enhancing intraluminal mass for short segment. Distally, there is semi solid stool in the rectum. No free intraperitoneal air or significant free fluid visible. Nodes and vessels: No retroperitoneal or mesenteric adenopathy by size criteria. Aorta and inferior vena cava are normal in size. Miscellaneous: No ventral hernias. PELVIS: Genitourinary: The urinary bladder is partially decompressed with a Vences catheter. The wall thickness is normal. Miscellaneous: No inguinal hernias or adenopathy. Bones: Bones are diffusely demineralized. There is joint space loss in the hip joints. No suspicious bony lesions. No vertebral body compression fractures. IMPRESSION: 1. Findings suspicious for a partially obstructing neoplasm in the proximal sigmoid colon. Colonoscopy is recommended if not already performed. 2. There is severe emphysema. 3. Multifocal areas of centralized pulmonary parenchymal fibrosis. These may also be infectious or postinflammatory. Metastatic disease is less likely given morphology. Dictated by: Wendy Harrison M.D. on 02/01/2020 at 9:09 Approved by: Wendy Harrison M.D. on 02/01/2020 at 9:42 Labs Result Diagrams: 02/02/20 05:05 02/02/20 05:05 Labs: Laboratory Results - last 24 hr 02/01/20 02/01/20 02/02/20 05:05 05:05 05:05 WBC 7.5 RBC 2.88 L Hgb 9.7 L Hct 28.1 L MCV 97.6 MCH 33.7 MCHC 34.6 RDW 13.8 Plt Count 62 L Neut % (Auto) 87.0 H Lymph % (Auto) 9.6 L [place] % (Auto) 3.2 Eos % (Auto) 0.0 L Baso % (Auto) 0.2 Neut # (Auto) 6500 Lymph # (Auto) 700 L [place] # (Auto) 200 Eos # (Auto) 0 Baso # (Auto) 0 Sodium Potassium Chloride Carbon Dioxide BUN Creatinine Estimated GFR BUN/Creatinine Ratio Glucose Calcium Phosphorus Magnesium Total Bilirubin Conjugated Bilirubin Unconjugated Bilirubin AST ALT Alkaline Phosphatase Total Protein Albumin Globulin Albumin/Globulin Ratio Procalcitonin Hep Bs Antibody Reactive Hep B Core Total Ab Positive A 02/02/20 02/02/20 05:05 05:05 WBC RBC Hgb Hct MCV MCH MCHC RDW Plt Count Neut % (Auto) Lymph % (Auto) [place] % (Auto) Eos % (Auto) Baso % (Auto) Neut # (Auto) Lymph # (Auto) [place] # (Auto) Eos # (Auto) Baso # (Auto) Sodium 138 Potassium 3.2 L Chloride 105 Carbon Dioxide 26 BUN 67 H Creatinine 1.00 Estimated GFR > 60.0 BUN/Creatinine Ratio 67.0 H Glucose 122 H Calcium 7.9 L Phosphorus 2.5 Magnesium 1.8 Total Bilirubin 1.1 Conjugated Bilirubin 0.0 Unconjugated Bilirubin 0.4 AST 27 ALT 10 Alkaline Phosphatase 67 Total Protein 5.2 L Albumin 2.6 L Globulin 2.6 Albumin/Globulin Ratio 1.0 Procalcitonin 2.30 H Hep Bs Antibody Hep B Core Total Ab Assessment & Plan Assessment and plan (1) Acute dehydration: Status: Acute (2) Adult failure to thrive: Status: Acute (3) Acute hypokalemia: Status: Acute (4) Large bowel obstruction: Status: Acute (5) Elevated CEA: Status: Acute (6) Colon cancer: Status: Acute (7) Anemia: Status: Acute Assessment & Plan narrative: This is a 59 yo man with history of 5 years of worsening symptoms of weight loss and bowel obstruction. His father had colon cancer, and the patient has been delaying seeking medical care because he does not want to spend his last few years in and out of the hospital as his father did. He came into the hospital after several falls at home. He was found to be dehydrated and anemic. CT scan showed a colon mass in the sigmoid which is nearly obstructing. CEA is 4.7. He passes gas but he has not passed stool in a long time. His CT scan is consistent with a locally advanced colon cancer, but no evidence of lymphadenopathy or metastatic disease was seen. He is not sure he wants anything done at this point. Dr. Marks had an extended conversation with him yesterday regarding his medical and surgical options. I again had a long talk with him today reiterating much of the same. I explained several options. I described the option of TPN for nutritional repletion (at least two weeks), followed by surgical resection of the obstructing mass, and possibly anastomosis with diverting ileostomy or with end colostomy. Another option would be attempting to place a stent endoscopically for palliation and so he can eat. The patient is not sure he wants to do anything. He is to be evaluated today by Dr. Levine from psych. Either way, I am recommending we start with TPN so he can gain some nutritional repletion in order to heal from whatever is done. Ideally two weeks of TPN prior to any surgery or procedure. At the end of our conversation the patient said he does not think he wants to do anything, but he has not made a definite decision. I recommended he at least let us start TPN while he is deciding. Plan: PICC and TPN if patient is willing Would consulte dietitian, and follow the patient closely for electrolyte abnormalities and refeeding syndrome Endoscopy with biopsy and possible stent placement if patient is willing (preferably after two weeks of TPN) COVID-19 COVID-19 status: Negative Result date/Date tested (Pos, Neg/Pending): 01/31/20 Time Spent With Patient Time with patient: 15-24 minutes Quality VTE Deep Vein Thrombosis/Pulmonary Embolism Present on Admission: No
--- NOTE | 2020-02-02 11:21 | SLP.IPNOTE ---
DIAMOND GRADER attempted to see patient for speech therapy, however, patient refused to participate. Patient stated I'm not doing good. 0830 MBSS was cancelled by MD. DIAMOND GRADER was notified that patient's diet was changed to full clear liquid diet (honey thick consistency) yesterday by Dr. Marks. DIAMOND GRADER observed that patient was coughing and throat clearing with honey thick liquids. Patient reported that he does not like the thickened liquids and it appeared that he had not consumed much of his honey thick clear liquids for breakfast. DIAMOND GRADER observed patient taking medications with nursing present. Patient presented with no overt s/sx of aspiration when taking medications with a small sip of thin water by straw. DIAMOND GRADER spoke extensively with case management and dietary about the change in patient's diet and risk of further inadequate nutrition/dehydration. Spoke with Dr. Garcia during rounds about diet concerns. Dr. Garcia provided a verbal order to place patient back on thin liquids and puree textures with general aspiration precautions. DIAMOND GRADER spoke with Dr. Adorno (prestressed concrete laborer today - Dr. Marks out of the office) to clarify orders before placing original diet orders. Dr. Adorno informed DIAMOND GRADER to place original diet orders and follow Dr. Garcia's recommendations. Other therapies have discharged patient from therapy services as patient is wanting to be left alone. ST on hold until further notice. Kiki Christensen MS ,CF-DI[employer]
--- NOTE | 2020-02-02 11:29 | PM.CHAP ---
Staff referral. Introduced myself to Pt and had ten minute conversation. Pt expressed desire to return home but acknowledged that stairs and lack of support will make that difficult. Not clear to me in this conversation that PT is able to care for himself or make good health care decisions. Pt stated that there was no one else to help with important decisions. Francis May, [facility] [phone]
--- NOTE | 2020-02-02 11:56 | DI.RAD.S_ITS ---
PROCEDURE: XR CHEST FOR PICC 1V INDICATIONS: line placement TECHNIQUE: One view of the chest was acquired. COMPARISON: [facility], CT, CT CHEST ABD PEL W CON, 02/01/2020, 9:31. [facility], CR, XR CHEST 1V, 01/31/2020, 22:16. [facility], CR, XR CHEST 2V, 01/31/2020, 9:06. FINDINGS: Surgical changes and devices: Left-sided PICC with the catheter tip at the lower 3rd of the SVC. Lungs and pleura: Prominent lung volumes. Patchy areas of apparent fibrosis are unchanged. No new airspace opacity. No pleural effusions or pneumothorax. Mediastinum: Mediastinal contours appear normal. Heart size is normal. Bones and chest wall: No suspicious bony lesions. Overlying soft tissues appear unremarkable. IMPRESSION: Left-sided PICC with the catheter tip at the lower 3rd of the SVC in satisfactory position. No pneumothorax. Dictated by: Brad Asif M.D. on 02/02/2020 at 12:46 Approved by: Brad Asif M.D. on 02/02/2020 at 12:48
[2020-02-02] MEDS: POTASSIUM CHLORIDE 30 MEQ in SODIUM CHLORIDE 0.9% 250 ML 88.333 ML IV ×2 (12:27→18:22)
--- NOTE | 2020-02-02 12:48 | DIET.PN ---
Dietary Progress Note Assessment: 59y M admitted for adult failure to thrive found to have nearly obstructing sigmoid colon mass referred to nutrition for kcal/pro reccs for careful start of TPN in pt's severely malnourished state. Pt admitted 2d ago and began PO nutrient repletion at 10kcal/kg/d (350kcals) increasing by 100kcal/d and is currently being offered 600kcal/d in dysphagia thin/puree texture. Pt is being watched closely for refeeding and repleted accordingly. Renal fxn now WNL (eGFR >60, Cr 1.0) however has very little muscle mass. Pt ate 100% dinner last night (ONS Nepro slushy and mashed potato c gravy) and had episode of emesis. Care to be taken c POs to limit soluble fiber and thickening agents to avoid further blocking sigmoid mass. Pt is +1.2kg in 2d. HT: 180.3cm WT: 37.8kg UBW: 70.5kg BMI: 11.6 (severe) Nutrition Diagnosis: Severe Acute PCM r/t difficulty eating secondary to untreated nearly obstructing sigmoid colon mass aeb 48% unintentional wt loss in 2y, BMI 11.6 (severe), pt subsisting on 20oz Pepsi/d for 2 mo. Interventions: Recc Continuous TPN via PICC Clinimix 11/14, no IVFE lipids until outside refeeding window. Recc 15mL/h for first 12h to assess tolerance and refeeding. Careful titration q12h by 5mL as tolerated for 3d. Temporary goal rate set to 42mL/h providing 880kcals and 50g PRO. Pt able to tolerate thin/puree diet in conjunction c TPN. RD to perform calorie count to assess POs and better calculate TPN needs once outside critical refeeding window. Monitoring/Evaluations: RD will follow pt once daily through weekend for PO calorie count and TPN tolerance
[2020-02-02] MEDS: SODIUM CHLORIDE 0.9% 500 ML 1000 ML IV (12:53)
--- NOTE | 2020-02-02 13:33 | PC.NURSE ---
Addendum entered by Amanda Alcantara R.N. 02/02/20 14:22: Patients bp in r.upper arm after bolus 73/51 with a map of 61. Rechecked and 85/51 with a map of 65. is aware. Original Note: Patient is A&Ox3, he is emaciated and thin. He has multiple small purple bruises on his arms, torso, chest and legs, redness to his sacrum and bony prominences. He has an allevyn dressing to his R.ac after a skin tear was caused by taking the iv tegaderm off. Patient had a 18g iv to his r. ac that started bleading around the catheter tip, this iv had to be taken out and patient was bleeding out of his site for a good 30 minutes. Vigorous pressure put on site with 2x2 and after 30 minutes bleeding did stop, dressing applied and patient calm. New IV site started to l.ac and started with magnesium rider that has been infused. ordered a Picc Line to be placed, a double lumen picc was placed in patients l.upper arm. Cynthia Norton RN, states that he does have a blister to his upper arm and he did apply a dressing. Site and dressing wnl and patient has not had any bleeding from this new site. Patients blood pressure has been an issue today, this morning bp 86/53, with a map of 59. Patient asymptomatic and denies feeling dizzy. Taken a couple of hours later and pressure down to 74/50 with a map of 57. At this time ordered a 500cc bolus of Normal Saline, which is infusing now. Per her order blood pressure checked at the beginning of bolus and up to 82/56 with a map of 61 and pulse of 105. Will recheck as soon as ns bolus infused and give numbers to hospitalist. wants to be notified if Map drops to 55 and lower. Patient is coughing after bites of food and dr is aware of this. Diet is puree with thin water, and nectar thick fluids. Patient is napping at this time and does not want to be bothered for a while. Potassium rider up and infusing in new Picc line without any difficulty.
--- NOTE | 2020-02-02 13:42 | PT-IP ANOTE ---
Per nursing and case mgr pt is on hold until further notice. Check back in afternoon
--- NOTE | 2020-02-02 13:54 | PT-IP ANOTE ---
talked to pt and pt refused PT. BP also is low 73/51.
--- NOTE | 2020-02-02 13:56 | DI.ECHO.S_ITS ---
[facility] +---------+ [facility] +---------+ : : [address] : [address] : : : : [id number] : : : : Phone: [phone]+ Echocardiogram Report + + :Name: GENO CRUZ Study Date: 02/03/2020 Height: 71 in : :[facility] Weight: 80 lb : : Gender: Male BSA: 1.4 m2 : :: 1960 Age: 59 yrs BP: 86/53 mmHg: :Reason For Study: Shortness of breath : :Ordering Physician: HOSPITALIST, : :GIULIANO Performed By: Kiki Evans : :Referring: AURELIO MCFADDEN : + + Interpretation Summary This was a technically difficult study due to the patient's body habitus and cooperation with the exam producing nonstandard body positioning and imaging angles. The left ventricle grossly appears normal in size and systolic function without any obvious focal wall motion abnormality with an ejection fraction grossly estimated at 60 to 65%. Diastolic function is likely normal with normal filling pressures. The right ventricle is not well seen but grossly appears normal. Pulmonary artery systolic pressure cannot be estimated. Both atria grossly appear to be normal in size. There is mild aortic valve sclerosis without stenosis and mild tricuspid regurgitation but no other obvious valvular abnormalities The aortic root is mildly enlarged. Procedure: A two-dimensional transthoracic echocardiogram with color flow and Doppler was performed. The study quality was technically difficult. Images were not obtained from all of the standard acoustic windows due to the limited scope of the study. Left Ventricle: The left ventricle is grossly normal size. There is normal left ventricular wall thickness. Left ventricular systolic function is probably normal. The ejection fraction is estimated to be 60-65%. There are no obvious focal wall motion abnormalities noted but poor endocardial definition reduces the sensitivity for the detection of such. Diastolic parameters suggest probable normal left ventricular diastolic function and normal filling pressures. Right Ventricle: The right ventricle is not well visualized. The right ventricle grossly appears normal in size with probable normal systolic function. The right ventricular systolic function is normal. Atria: Both atria are normal in size. There is no Doppler evidence for an interatrial shunt. Mitral Valve: There is mild mitral annular calcification. The mitral valve leaflets are mildly calcified. There is trace mitral regurgitation. Aortic Valve: The aortic valve is not well visualized. The aortic valve is mildly calcified. The aortic valve opens well. There is no aortic valve stenosis. There is mild aortic regurgitation. Tricuspid Valve: The tricuspid valve is not well visualized. There is mild tricuspid regurgitation. Pulmonary artery pressures cannot be estimated because of the lack of a measurable TR jet velocity. Pulmonic Valve: The pulmonic valve is not well visualized. There is no other significant valvular heart disease. Great Vessels: The aortic root is mildly dilated. The ascending aorta could not be visualized. The inferior vena cava was not visualized. Pericardium/ Pleura There is no pericardial effusion. MMode/2D Measurements & Calculations LVIDd: 3.7 cm LVOT diam: 2.4 cm LVIDs: 2.4 cm Ao root diam: 3.9 cm FS: 34.8 % Ao Arch Diam (Prox Trans): 3.3 cm EPSS: 0.80 cm IVSd: 0.70 cm LVPWd: 0.71 cm LV rod. diameter/BSA (cm/m^2): 2.6 LV sys. diameter/BSA (cm/m^2): 1.7 LA A2 area: 14.3 cm2 RA long axis: 4.5 cm LA A4 area: 13.2 cm2 RA area: 14.6 cm2 LA length (vol): 4.2 cm RA vol: 40.5 ml LA vol: 38.0 ml RA : 28.3 ml/m2 LA vol index: 26.6 ml/m2 RVD1 (basal): 3.5 cm TAPSE: 2.5 cm Doppler Measurements & Calculations Ao V2 max: 125.6 cm/sec LVOT Max Jackson: 98.6 cm/sec Ao V2 mean: 77.9 cm/sec LV V1 max P.9 mmHg Ao max P.3 mmHg LV V1 VTI: 15.8 cm Ao mean P.9 mmHg CRIS(I,D): 3.8 cm2 Ao V2 VTI: 19.6 cm CRIS(V,D): 3.7 cm2 sev ratio: 0.81 CRIS indexed to BSA (cm^2/m^2): 2.7 MV E max jackson: 68.6 cm/sec SV(LVOT): 74.2 ml MV A max jackson: 61.0 cm/sec MV E/A: 1.1 Med Peak E' Jackson: 8.3 cm/sec E/E' med: 8.3 Lat Peak E' Jackson: 11.2 cm/sec E/E' lat: 6.1 E/e' average: 7.2 MV dec time: 0.14 sec Reading Physician:MADHU
--- NOTE | 2020-02-02 16:25 | CM.DPNOTE ---
DCP Cont This VP PACKAGING able to meet w/patient multiple times today but visits are brief as patient states he gets tired very easily. Patient very pleasant, A+O, speaks softly; Patient says that he has been feeling overwhelmed w/the craziness of this world and feels he is ready for all this to be over!. Patient later shows this VP PACKAGING his arms (extremely cachectic) w/multiple bruises and IV/steri strip/tape and says look at this! I want this to be done, can you just give me something overnight. This VP PACKAGING explained to patient today that the staff are navigating some challenging questions; on his behalf- discussing how best to care for him and how to ethically care for him, patient understood this. Then explained if patient could hang in there for a little longer w/some additional questioning and assessment, this VP PACKAGING was hopeful that a solution could be found to meet patient's stated wishes and keep him comfortable for the remainder of his life. Patient states maybe he should never had gotten a hold of his neighbor for help? This VP PACKAGING attempts to soothe patient by explaining that patient would have likely ended up in the ER at some point; the mass that has been found, if left , could cause severe pain and distress and if patient continues to not want surgical treatment, he needs to consider allowing comfort measures and likely Hospice service into his life to address symptom and pain management, patient agreed. Patient then instructed this VP PACKAGING to contact his sister Nancy P# [phone] and stated you can share anything with her patient states sister has been here to to visit him and knows about the mass and about patient's decision not to remove it. Patient says I can't talk about all this with her, we'll be a blubbering mess. Patient appreciative of the visit and requests door closed for time to sleep. No PT/OT today, not approp at this time. Dr Levine completed her consult visit this afternoon and explains to this VP PACKAGING that patient has decisional capacity to make the decisions outlined above. She feels he is chronically depressed but this does not necessarily cloud his current decisions to be left alone and allow natural to occur. See Dr Levine's note for detail. Faxed referral to [facility] and included sister Nancy's contact. Unfortunately, unable to contact sister this afternoon before end of shit. Coordination will continue tomorrow Wednesday02.03.20 LATANYA Love
--- NOTE | 2020-02-02 17:22 | P.CONS_ITS ---
History of Present Illness Consult details Date Patient Seen: 02/02/20 Time Patient Seen: 15:10 Chief complaint: Weak Reason for consult: Decisional capacity to refuse surgery Requesting provider: Vidya Garcia Narrative: Pt admitted on 01/31/20 with failure to thrive, hypokalemia, hyponatremia, RAN, anemia & thrombocytopenia & severe malnutrition with BMI 11.3. Found to have sigmoid mass with elevated CEA & high suspicion for colong cancer. Currently refusing surgical intervention. Consulting for decisional capacity to refuse surgical intervention & impact of depression on this decision. Started on citalopram yesterday by Dr. Rodriguez at 10mg daily. EKG in ED showed prolonged QTc 570. Chart shows that sister is best source of collateral, but not clear that we have been able to contact her yet. Spoke with LAATNYA Harris, essentially feels patient has decisional capacity; initially declined to have the team contact family but later happily agreed to family contact. INTERVIEW: Patient reports that he came to the hospital ?because things have been getting about for a long time? references his arms with multiple bruises. States things have been worse over the past 5 years but particularly feeling worse the past couple of weeks. States that he is depressed ?I?ve been depressed most of my life? and that this is one of the worst episodes of depression he?s ever had. Denies depression being the reason he is not eating, states he couldn?t keep anything down. Reports some suicidal thoughts but denies any plan to end his life, reports at least 3 suicide attempts in the past. States that he is not trying to end his life currently, but also has a sense that it might just be his time. 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 When asked about any previous treatment for depression he replies ?Whiskey? but hasn?t had a drink since unable to keep food down. States I've had a good life and discusses several things from time he enjoyed, working on the [employer] & connecting to people during that time as one example. Mentions another severe episode of depression in his life after his mother and he also lost his job working on the [employer]; also severe depression after losing a friend ?I did not want to go on, I did not see the point?. We reviewed his discussions with the medical team. He expresses understanding that there is a mass in his colon & that the surgical team recommends surgery. When asked what the potential benefits to surgery are he states ?they?ve been a little vague? but also states that the team hopes he would feel better, be able to eat again. States he watched his father go through treatment for colon cancer ?they?ll do a big operation, put a bag to go to the bathroom in? and feels that suffering through all that is not worth it. ?How much of a difference does it really make in the long-run, a few more years?? Understands that hospice is an alternative to surgery, that he may be able to have someone come to his home to help him with some things he cannot do. Understands that if working with hospice the goal would be his comfort. States that he wants to return home. States that he does not want surgery, understands that he may if he does not go through with surgery, and also that there are risks to the surgery as well. ?It is scary? but states that he does not want to go through what he watched his father go through. Also mentions his mother having open heart surgery. States that he keeps in touch with his sister Nancy, she knows him well, ?my family is close?. Agrees that she would be a good source of outside information explained the rationale for this. Describes several close friends, also being close to his family. PSYCHIATRIC HISTORY: Inpt: denies Medications: denies SA: 3 lifetime, no clear treatment afterwards, describes one episode of OD on al cohol & sleeping pills, woke up afterwards ?and I got over it? No significant outpatient treatment; states that support from family & friends had been helpful at various times during his life FAMILY HISTORY: father of colon cancer age 57yo SOCIAL HISTORY: Lives alone, sister checks on intermittently; typically drinks ? of L of whiskey per day but none in past 2 mo b/c not tolerating oral intake. Also cannabis use. DEVELOPMENTAL HISTORY: reports significant head injury in childhood, fell off balcony hit his head, unconscious in the hospital for 3d; woke up & didn't recognize his mother & took several weeks to recover; 2nd head injury (concussion symptoms) in HS PMH: see H&P for past medical & surgical history; no medical care in past 5y Meds Home Medications and Allergies Home Medications Medication Instructions Recorded Confirmed Type No Known Home Medications 01/31/20 01/31/20 History Allergies Allergy/AdvReac Type Severity Reaction Status Date / Time No Known Drug Allergies Allergy Verified 01/31/20 09:30 Review of Systems Constitutional Constitutional: Reports poor appetite, Reports weakness and Reports weight loss Neurologic Neurologic: Reports weakness Psychiatric Psychiatric: Reports as per HPI Exam Vital Signs (past 8 hours): - 02/02/20 12:35 02/02/20 16:03 Temperature 98.2 F 96.7 F L Pulse Rate 109 H 100 H Respiratory Rate 18 20 Blood Pressure 72/49 L 142/67 H Pulse Oximetry 95 95 Fraction of Inspired Oxygen 96 Oxygen Delivery Method Room Air Oxygen Flow Rate 2 Narrative Exam Narrative: MENTAL STATUS EXAM Appearance: cachectic male, widespread bruising visible on arms & chest; appears older than stated age; wearing stylish glasses; has edmond & short hair Behavior: Calm, cooperative, fair eye contact, some psychomotor slowing, winces with some movement, coughing frequently or pausing speech at times to catch his breath Gait: not observed, lying in bed Speech: pauses at times but overall normal rate, volume, prosody Mood: depressed Affect: Congruent with content, dysthymic but brightens appropriately & easily when discussing good memories Thought Process: Linear, logical, goal-directed Thought Content: +SI without plan/intent (also chronic), denies homicidal ideation, denies hallucinations, no evidence of paranoia or delusions Attention: Attentive to interview Orientation: Oriented to [facility] in [place] and time as Wednesday, January... maybe ? 2019 Memory: Intact for interview to remote & recent events, can't remember my exact title but knows I'm some type of therapist Insight: Fair-good Judgment: Fair-good Objective Labs Result Diagrams: 02/02/20 05:05 02/02/20 05:05 Labs: Laboratory Results - last 24 hr 02/01/20 02/01/20 02/02/20 05:05 05:05 05:05 WBC 7.5 RBC 2.88 L Hgb 9.7 L Hct 28.1 L MCV 97.6 MCH 33.7 MCHC 34.6 RDW 13.8 Plt Count 62 L Neut % (Auto) 87.0 H Lymph % (Auto) 9.6 L [place] % (Auto) 3.2 Eos % (Auto) 0.0 L Baso % (Auto) 0.2 Neut # (Auto) 6500 Lymph # (Auto) 700 L [place] # (Auto) 200 Eos # (Auto) 0 Baso # (Auto) 0 Sodium Potassium Chloride Carbon Dioxide BUN Creatinine Estimated GFR BUN/Creatinine Ratio Glucose Calcium Phosphorus Magnesium Total Bilirubin Conjugated Bilirubin Unconjugated Bilirubin AST ALT Alkaline Phosphatase Total Protein Albumin Globulin Albumin/Globulin Ratio Procalcitonin Hep Bs Antibody Reactive Hep B Core Total Ab Positive A 02/02/20 02/02/20 05:05 05:05 WBC RBC Hgb Hct MCV MCH MCHC RDW Plt Count Neut % (Auto) Lymph % (Auto) [place] % (Auto) Eos % (Auto) Baso % (Auto) Neut # (Auto) Lymph # (Auto) [place] # (Auto) Eos # (Auto) Baso # (Auto) Sodium 138 Potassium 3.2 L Chloride 105 Carbon Dioxide 26 BUN 67 H Creatinine 1.00 Estimated GFR > 60.0 BUN/Creatinine Ratio 67.0 H Glucose 122 H Calcium 7.9 L Phosphorus 2.5 Magnesium 1.8 Total Bilirubin 1.1 Conjugated Bilirubin 0.0 Unconjugated Bilirubin 0.4 AST 27 ALT 10 Alkaline Phosphatase 67 Total Protein 5.2 L Albumin 2.6 L Globulin 2.6 Albumin/Globulin Ratio 1.0 Procalcitonin 2.30 H Hep Bs Antibody Hep B Core Total Ab Assessment & Plan Assessment and plan (1) Adult failure to thrive: Status: Acute (2) Large bowel obstruction: Status: Acute (3) Depression (emotion): Status: Acute Assessment & Plan narrative: Rusty Jauregui is a 59-year-old male, admitted for failure to thrive and found to have colon mass, elevated CEA and CT consistent with advanced local cancer. Psychiatry is consulted to help evaluate decisional capacity and also impact of depression on his decision around treatment. He does endorse current feelings of depression as well as some suicidal thoughts. However, he has had suicidal thoughts chronically as well as at least 3 lifetime suicide attempts but denies plan or intent to end his life or hasten ending his life at this time. Actions prior to admission are consistent with this, given that he alerted his neighbor when unable to get up instead of choosing to do nothing. And while I feel he does have some level of depression, I do not see signs of severe melancholic depression or psychotic depression that could impact his though process. Additionally, I do not feel that his depression would respond to treatment in a period of days-weeks, so there is not really an opportunity to treat depression to see if his decision changes outside of a depressed state given that he would need a surgical intervention sooner than that. Regarding his decisional capacity, he does express to me a clear understanding of his medical diagnoses, and the recommendations by the team to undergo surgery to remove the mass in his colon. Thus far he has consistently expressed a choice against surgery, reasoning that he does not want to endure the process he watched his father go through who ultimately of colon cancer. He appears to have a good appreciation of how the potential treatment could impact him, expresses that the team feels it could help him live longer but also that there are risks with the surgery. Also expresses appreciation that refusing surgery will likely lead to sooner but states that he would prefer this to ongoing medical treatment involved with surgery & cancer treatment. He can discuss hospice as an alternative to treatment. His behavior of avoiding medical care for the past 5 years is consistent with an approach of minimal medical and surgical interventions. One piece of information we do not yet have is collateral information from his family. Collateral information could help us get a sense of his current mental state compared to his baseline, and his approach to health over time. Currently, I do feel that he has decisional capacity to refuse surgical intervention. Although he has some current depression, I do not feel that it is impacting his ability to make this decision, and that he is appropriate for hospice if that is his consistent desire. Watching for consistency in his choice over the next few days & getting collateral from his sister will help to make sure that all information is consistent. RECOMMENDATIONS: - continue citalopram, reassuring that QTc is WNL today, may help within 4 weeks with some depression - contact his sister Nancy for collateral information as planned (compare current to baseline, pattern of decisions around healthcare over time) - consider hospice consult - consider ethics consult Thank you for involving me with this patient's care. I will be off campus over the weekend Dr. Garcia has my personal contact information if urgent consultation is needed. I will check-in with the team & patient on Sunday 02/04 if he is still in the hospital, and am happy to be involved in ethics discussion if this is planned. Time Spent With Patient Time with patient: 25 - 35 minutes
[2020-02-02] MEDS: AA 5 %/CALCIUM/LYTES/DEXT 20 % 1,000 ML with MULTIVITAMIN 10 ML, TRACE ELEMENTS 1 ML 17.5 ML IV (18:22)
--- NOTE | 2020-02-02 19:10 | PC.NURSE ---
Addendum entered by Keyshawn Bills R.N. 02/02/20 22:22: patient has completely refused all patient care from staff. Patient has a soiled bed. Made mult. attempts to change bedding for patient but patient refused saying its fine, I have laid in worst. Patient check done to check PIV in L AC. It was intact when nurse arrived in room but patient had complete ripped out double lumen PICC in E. Compression dressing was placed on patients arm as patient had a fast trickle of blood coming from PICC site. Zeke DAVID at bedside to discuss placing a new PICC in patient. It was determined to wait to place another PICC and to cont. with TPN. Patient reports to staff that He dosen't want TPN and is getting enough nutrition from his dinner trays. Patient is refusing staff to remove dinner tray from room, states I am still working on this food. Education has been done regarding eating food that has been sitting out and risks for food poisoning. Original Note: Patient has voiced that he is tired of all the interuptions that the staff has caused. Patient was very upset with this nurse regarding all these damn iv medications. Attempted to do some education on why each is important and what they are doing for the patient. However, Mr. Jauregui was not being receptive to education and cont. to verbally cut me off stating All I need is food to eat, that's the only thing that is important. Patient has refused most to all patient care offered by aid and nursing staff this evening. Patient also refused oral medication stating, it takes too long to dissolve and I am trying to pick at my dinner and eat it. Offered to return later on in the carolyn to give medication but states no I will just take it tomorrow.
[2020-02-03] VITALS (14 sets, daily range): BP systolic 63–87; BP diastolic 46–55; PULSE 94–116; RESP 16–28; TEMP 36.3–36.8; O2SAT 84–99
[2020-02-03] MEDS: PIPERACILLIN-TAZO 2.25 GM/50 ML FROZ.PIGGY IV ×5 (00:15→23:36)
[2020-02-03] MEDS: SODIUM CHLORIDE 0.9% 1,000 ML 100 ML IV (00:24)
--- NOTE | 2020-02-03 00:43 | PC.NURSE ---
Addendum entered by Nikki Bobo R.N. 02/03/20 05:35: BP this morning is 69/47. MANAGER PEOPLE, Manny, informed and fluid bolus ordered. Addendum entered by Nikki Bobo R.N. 02/03/20 02:16: CBG checked as per MANAGER PEOPLE communication order and was 137 Original Note: Patient mostly oriented; affect very flat. Breath sounds diminished and coarse throughout but denies SOB and RA sat is 94%. Continues to have frequent intermittent cough. HRR with rate in 90's. BP still trending low with SBP in 70's but is asymptomatic; MANAGER PEOPLE made aware. Denies nausea. Abdomen more distended and firm to touch but non tender and denies pain. BT are hypoactive and tympanic sounding. Pressure areas on bony prominences continue to become darker red; attempt to reposition q2h but patient not always agreeable. Waffle cushion is being used under thoracic spine. Allevyn dressing to sacral area is CDI. Dressings to right forearm are CDI. Indwelling catheter is patent; urine is tea colored. Refusing SCD's. Fall risk score is high and bed alarm is activated.
[2020-02-03] MEDS: DEXTROSE 5%-0.9% NS 1,000 ML 100 ML IV (00:57)
[2020-02-03] MEDS: SODIUM CHLORIDE 0.9% 500 ML IV (05:30)
[2020-02-03 05:53] LABS: Alanine Aminotransferase 11 IU/L (<50); Albumin 2.3 g/dL (3.5-5.0); Albumin Globulin Ratio 0.9 (1.0-2.8); Alkaline Phosphatase 64 U/L (38-126); Aspartate Aminotransferase 30 IU/L (17-59); BUN Creatinine Ratio 79.8 (6-22); Bilirubin Total 0.9 mg/dL (0.2-1.3); Blood Urea Nitrogen 67 mg/dL (9-20); Calcium 7.7 mg/dL (8.4-10.2); Carbon Dioxide 22 mmol/L (22-32); Chloride 108 mmol/L (98-107); Estimated Glomerular Filt Rate > 60.0 mL/min (>60); Globulin 2.5 g/dL (1.7-4.1); Glucose 104 mg/dL (80-110); HEMOLYSIS 41 (0-50); Potassium 3.2 mmol/L (3.4-5.1); Sodium 137 mmol/L (137-145); Total Protein 4.8 g/dL (6.3-8.2)
[2020-02-03 05:56] LABS: Alanine Aminotransferase 11 IU/L (<50); Albumin 2.2 g/dL (3.5-5.0); Albumin Globulin Ratio 0.8 (1.0-2.8); Alkaline Phosphatase 64 U/L (38-126); Aspartate Aminotransferase 29 IU/L (17-59); Bilirubin Unconjugated 0.4 mg/dL (0.0-1.1); Globulin 2.6 g/dL (1.7-4.1); HEMOLYSIS 41 (0-50); Phosphorous 1.9 mg/dL (2.3-3.7); Total Protein 4.8 g/dL (6.3-8.2)
[2020-02-03] MEDS: CLOTRIMAZOLE TROCHE 10 MG PO ×2 (05:57→19:12)
[2020-02-03 05:58] LABS: Add Manual Diff / Slide Review NO; Basophils Absolute Auto 0 /uL (0-100); Basophils Percent Auto 0.1 % (0-2); Eosinophils Absolute Auto 0 /uL (0-450); Eosinophils Percent Auto 0.1 % (2-4); Hematocrit 27.2 % (41-53); Hemoglobin 9.3 g/dL (13.5-17.5); Lymphocytes Absolute Auto 900 /uL (1100-4500); Lymphocytes Percent Auto 12.1 % (25-40); Mean Corpuscular HGB Conc 34.1 % (30-36); Mean Corpuscular Hemoglobin 33.7 PG (26-34); Monocytes Absolute Auto 300 /uL (0-900); Monocytes Percent Auto 3.6 % (3-14); Neutrophils Absolute Auto 6100 /uL (1500-7000); Neutrophils Percent Auto 84.1 % (50-75); Red Blood Cell Count 2.75 X10^6/uL (4.5-5.9); White Blood Cell Count 7.3 X10^3/uL (4.5-11.0)
[2020-02-03 06:07] LABS: Procalcitonin 1.94 ng/mL (<0.5)
[2020-02-03 06:15] LABS: Platelet Count 36 X10^3/uL (150-400)
[2020-02-03 06:16] LABS: RBC Morphology Normal Morphology
[2020-02-03 06:17] LABS: Platelet Estimate Decreased on smear
[2020-02-03] MEDS: POTASSIUM PHOSPHATE 15 MMOL in DEXTROSE 5% IN WATER 250 ML 63.75 ML IV (06:46)
--- NOTE | 2020-02-03 09:14 | DI.RAD.S_ITS ---
PROCEDURE: XR CHEST FOR PICC 1V INDICATIONS: picc placement COMPARISON: [facility], , XR CHEST FOR PICC 1V, 02/02/2020, 12:00. FINDINGS: PICC was placed by the intravenous therapy team from the left side. Fluoroscopic spot film demonstrates the tip of PICC projecting to the area of cavoatrial junction. IMPRESSION: Tip of PICC projects to the area of cavoatrial junction.. Dictated by: Wendy Harrison M.D. on 02/03/2020 at 9:35 Approved by: Wendy Harrison M.D. on 02/03/2020 at 9:36
--- NOTE | 2020-02-03 10:44 | PM.PN.1 ---
Subjective Subjective Date Patient Seen: 02/03/20 Time Patient Seen: 10:44 Interval history: No acute overnight events. Exam Vital Signs (past 8 hours): - 02/03/20 05:24 02/03/20 07:44 Temperature 97.8 F 97.3 F L Pulse Rate 97 H 106 H Respiratory Rate 18 16 Blood Pressure 69/47 L Pulse Oximetry 95 84 L Fraction of Inspired Oxygen 96 Oxygen Delivery Method Room Air Oxygen Flow Rate 0 Narrative Exam Narrative: General adult male appears significantly older than his age alert and oriented. Emaciated diffuse bruising to the upper extremities Objective Labs Result Diagrams: 02/03/20 05:07 02/03/20 05:07 Labs: Laboratory Results - last 24 hr 02/03/20 02/03/20 02/03/20 05:07 05:07 05:07 WBC 7.3 RBC 2.75 L Hgb 9.3 L Hct 27.2 L MCV 99.0 MCH 33.7 MCHC 34.1 RDW 14.0 Plt Count 36 L* Neut % (Auto) 84.1 H Lymph % (Auto) 12.1 L [place] % (Auto) 3.6 Eos % (Auto) 0.1 L Baso % (Auto) 0.1 Neut # (Auto) 6100 Lymph # (Auto) 900 L [place] # (Auto) 300 Eos # (Auto) 0 Baso # (Auto) 0 Platelet Estimate Decreased on smear RBC Morphology Normal morphology Sodium Potassium Chloride Carbon Dioxide BUN Creatinine Estimated GFR BUN/Creatinine Ratio Glucose Calcium Phosphorus 1.9 L Magnesium 2.0 Total Bilirubin 1.0 Conjugated Bilirubin 0.0 Unconjugated Bilirubin 0.4 AST 29 ALT 11 Alkaline Phosphatase 64 Total Protein 4.8 L Albumin 2.2 L Globulin 2.6 Albumin/Globulin Ratio 0.8 L Procalcitonin 1.94 H Blood Type Antibody Screen 02/03/20 02/03/20 05:07 07:05 WBC RBC Hgb Hct MCV MCH MCHC RDW Plt Count Neut % (Auto) Lymph % (Auto) [place] % (Auto) Eos % (Auto) Baso % (Auto) Neut # (Auto) Lymph # (Auto) [place] # (Auto) Eos # (Auto) Baso # (Auto) Platelet Estimate RBC Morphology Sodium 137 Potassium 3.2 L Chloride 108 H Carbon Dioxide 22 BUN 67 H Creatinine 0.84 Estimated GFR > 60.0 BUN/Creatinine Ratio 79.8 H Glucose 104 Calcium 7.7 L Phosphorus Magnesium Total Bilirubin 0.9 Conjugated Bilirubin Unconjugated Bilirubin AST 30 ALT 11 Alkaline Phosphatase 64 Total Protein 4.8 L Albumin 2.3 L Globulin 2.5 Albumin/Globulin Ratio 0.9 L Procalcitonin Blood Type O Positive Antibody Screen Negative Assessment & Plan Assessment & Plan narrative: This is a 59-year-old male with a 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 I had a long discussion with the patient today regarding his diagnosis and his treatment considerations. He is explicitly and clearly states in his own words I do not want any surgical intervention. He says that without treatment he will and that is exactly what he wants. He says that if he were to undergo surgery that this may potentially cure him or prolong his life but he does not want this. He says all he wants is to go home and comfortably. He does not want to struggle against this malignancy. He says that he made his decision months ago. I think he has carefully evaluated his situation and made a rational decision for him. I think that he would best be served by involving hospice services and proving in home assistance. I do not think there is much value in further medical interventions including laboratory studies or artificial nutrition. Will sign off please call with questions. Quality VTE Deep Vein Thrombosis/Pulmonary Embolism Present on Admission: No
--- NOTE | 2020-02-03 12:16 | PT.IPTN ---
Current Diagnoses Malignant neoplasm of colon, unspecified (01/31/20) Anemia, unspecified (01/31/20) Dehydration (01/31/20) Hypokalemia (01/31/20) Major depressive disorder, single episode, unspecified (01/31/20) Unspecified intestinal obstruction, unspecified as to partial versus complete obstruction (01/31/20) Adult failure to thrive (01/31/20) Elevated carcinoembryonic antigen [CEA] (01/31/20) Physical Therapy Treatment Note M2 PT-IP Current Condition Start: 02/01/20 12:39 Freq: NEEDED Status: Active Protocol: Document 02/01/20 10:50 AB (Rec: 02/01/20 12:50 AB [email or web address]) Physical Therapy Current Condition Current Condition Evaluation Date 02/01/20 Treatment Diagnosis failure to thrive; difficulty in walking Onset Date 01/31/20 M3 PT-IP Subjective Start: 02/01/20 12:39 Freq: NEEDED Status: Active Protocol: Document 02/03/20 12:14 AB (Rec: 02/03/20 12:16 AB [email or web address]) Subjective Physical Therapy Visit Type Type Administrative Note Notes Checked with nursing and stated pt just wants to be left alone. BP this mornin/47. PT will d/c pt and if nurse agreed to obtain PT orders if pt becomes more agreeable and appropriate for PT. M7 PT-IP Assessment and Plan Start: 02/01/20 12:39 Freq: NEEDED Status: Active Protocol: Document 02/03/20 12:14 AB (Rec: 02/03/20 12:16 AB [email or web address]) PT Summary Assessment and Plan Frequency of Treatment Frequency Of Treatment Discharge
[2020-02-03] MEDS: MORPHINE 2 MG/ML INJ IV ×3 (12:59→21:26)
[2020-02-03] MEDS: ALBUTEROL/IPRATROPIUM 3 ML AMPUL INH (13:03)
--- NOTE | 2020-02-03 13:49 | CM.DPC ---
Addendum entered by Celeste Robertson R.N. 02/03/20 15:11: Continuation of note below- Dr. Garcia states she is struggling with stopping treatment and moving towards comfort care because patient has been wavering on his choice to not have treatment or to have treatment with Dr. Garcia. Original Note: DCP continued: EMR Reviewed: CM spoke with patient at the bedside about D/C plan and hospice. Patient stated that he was done with all treatment and just wants to at home in his chair. Patient notified nurse and talked with Dr. Garcia about it. There is an ethics meeting set up for Wednesday to disscuss this patient. Dr. Garcia stated she is struggling with stopping treatment and moving towards comfort care because patient Dr. Gross came in and talked about plan of care for patient. Dr. gross stated that patient told him he didn't want any more treatment and does not want surgery. Dr. gross stated that he wants to start hospice referral. Kimberly started one yesterday and Cm/Rn spoke with hospice of the today they had an informational phone call with the patients sister Nancy. she stated that Nancy wants to talk to her brother today and will call hospice tomorrow to sign papers. Cm department will follow up with hospice tomorrow. CM/Rn spoke with Dr Garcia and she stated she is waiting for the patient to confirm his desire to stop treatment with her. She plans to pull back treatment for now let the patient sleep then follow up with the patient later this evening to help come up with a plan of care. Dr. Garcia let CM know as well as nursing know her plan. CM/Rn let Shira programming development project manager know of the challenges with patient as well. D/C plan is to be determined based on patient plan leaning more towards home with hospice care. states she doesn't think he will live long enough to get home without interventions due to patients frail state. CM department will continue to follow and work on D/C plan once patients plan is determined. Celeste Robertson RN
[2020-02-03] MEDS: DEXTROSE 5%-0.9% NS 1,000 ML 75 ML IV (16:04)
[2020-02-03] MEDS: SCOPOLAMINE 1 PATCH TOP (16:05)
--- NOTE | 2020-02-03 18:55 | PM.PN.1 ---
Subjective Subjective Date Patient Seen: 02/03/20 Interval history: Rusty Jauregui is a 59-year-old male with a past medical history significant for alcohol dependence in remission and nicotine dependence who presented to the ED with severe weakness, cachexia and inability to get up from floor after a fall x 2 days The patient is resting comfortably in bed. Overnight the patient's PICC line was pulled out and plan to replace this morning. The patient continues to relay to nurses that he does not want certain interventions but then when discussed at bedside with provider overnight or myself the patient agrees to IV fluids, TPN, electrolyte repletion, and platelets and offers no hesitation or statement that he does not these interventions. The patient discussed his option for laparotomy and sigmoid resection with Dr. Gross this morning and told Dr. Gross that he did not want this surgery. However, when further discuss with me at bedside the patient reports that he has not definitively made the decision not to pursue surgical intervention and would like more time to decide. Consulted psychiatry yesterday who deemed that the patient has decisional capacity. Plan to discuss previous wishes with his sister Nancy Tapia to assure these are congruent with him leaning towards not pursuing surgical intervention. He seems quite overwhelmed with the amount of providers and nursing staff asking him questions in regard to medical interventions. Discussed focusing on symptom control today and allowing him time to rest and think about his decision. He has mild intermittent shortness of breath and continue morphine as needed for air hunger. He has no other complaints and denies headache, chest pain, abdominal pain, nausea, vomiting, fever, chills, dysuria, diarrhea or constipation. He is on bed rest. Exam Vital Signs (past 8 hours): - 02/03/20 13:06 02/03/20 13:21 02/03/20 13:36 Temperature 97.4 F L 97.4 F L Pulse Rate 112 H 116 H 116 H Respiratory Rate 28 H 16 16 Blood Pressure 66/49 L 66/49 L Pulse Oximetry 99 02/03/20 13:59 02/03/20 16:00 02/03/20 16:30 Temperature 97.4 F L 98.3 F Pulse Rate 110 H 99 H Respiratory Rate 16 16 Blood Pressure 63/47 L 87/55 L Pulse Oximetry 93 02/03/20 16:47 Temperature 97.5 F L Pulse Rate 99 H Respiratory Rate 20 Blood Pressure 87/55 L Pulse Oximetry 92 Fraction of Inspired Oxygen 96 Oxygen Delivery Method Room Air Oxygen Flow Rate 0 Narrative Exam Narrative: General: Older severely cachetic and emaciated appearing male lying in bed and in no acute distress, severely depressed but appropriately interactive. HEENT: Normocephalic, atraumatic. External ears without defect. Pupils equal, round, and reactive to light. Anicteric sclerae, moist conjunctivae, and no lid lag. Oropharynx free of erythema and cobble stoning with moist mucosa. Bitemporal in full body severe muscle and subcutaneous fat wasting. Neck: Full range of motion. No jugular venous distension. No lymphadenopathy or thyromegaly. Cardiovascular: Bony protrusion of clavicle and ribs makes auscultation difficult but appears to be regular rate and rhythm without murmurs, rubs, or gallops appreciated. Pulmonary: Coarse upper airway rhonchi otherwise clear to auscultation bilaterally. No crackles or wheezes. Normal respiratory effort with no use of accessory muscles. Abdomen: Abdomen firm, mild distention, bowel sounds hypoactive, nontender. Extremities: No clubbing, cyanosis, or edema. No muscle mass on extremities. Scattered ecchymoses spread throughout upper body. Neurological: Cranial nerves grossly intact. Psychiatric: Severely depressed mood and flat affect. Alert and oriented to person, place, and time. No suicidal ideation or plan. Objective Labs Result Diagrams: 02/04/20 04:20 02/04/20 04:20 Labs: Laboratory Results - last 24 hr 02/03/20 02/03/20 02/03/20 05:07 05:07 05:07 WBC 7.3 RBC 2.75 L Hgb 9.3 L Hct 27.2 L MCV 99.0 MCH 33.7 MCHC 34.1 RDW 14.0 Plt Count 36 L* Neut % (Auto) 84.1 H Lymph % (Auto) 12.1 L [place] % (Auto) 3.6 Eos % (Auto) 0.1 L Baso % (Auto) 0.1 Neut # (Auto) 6100 Lymph # (Auto) 900 L [place] # (Auto) 300 Eos # (Auto) 0 Baso # (Auto) 0 Platelet Estimate Decreased on smear RBC Morphology Normal morphology Sodium Potassium Chloride Carbon Dioxide BUN Creatinine Estimated GFR BUN/Creatinine Ratio Glucose Calcium Phosphorus 1.9 L Magnesium 2.0 Total Bilirubin 1.0 Conjugated Bilirubin 0.0 Unconjugated Bilirubin 0.4 AST 29 ALT 11 Alkaline Phosphatase 64 Total Protein 4.8 L Albumin 2.2 L Globulin 2.6 Albumin/Globulin Ratio 0.8 L Procalcitonin 1.94 H Blood Type Antibody Screen 02/03/20 02/03/20 05:07 07:05 WBC RBC Hgb Hct MCV MCH MCHC RDW Plt Count Neut % (Auto) Lymph % (Auto) [place] % (Auto) Eos % (Auto) Baso % (Auto) Neut # (Auto) Lymph # (Auto) [place] # (Auto) Eos # (Auto) Baso # (Auto) Platelet Estimate RBC Morphology Sodium 137 Potassium 3.2 L Chloride 108 H Carbon Dioxide 22 BUN 67 H Creatinine 0.84 Estimated GFR > 60.0 BUN/Creatinine Ratio 79.8 H Glucose 104 Calcium 7.7 L Phosphorus Magnesium Total Bilirubin 0.9 Conjugated Bilirubin Unconjugated Bilirubin AST 30 ALT 11 Alkaline Phosphatase 64 Total Protein 4.8 L Albumin 2.3 L Globulin 2.5 Albumin/Globulin Ratio 0.9 L Procalcitonin Blood Type O Positive Antibody Screen Negative Assessment & Plan Assessment & Plan narrative: Rusty Jauregui is a 59-year-old male with a past medical history significant for alcohol dependence in remission and nicotine dependence who presented to the ED with severe weakness, cachexia and inability to get up from floor after a fall x 2 days 1. Failure to thrive with severe protein calorie malnutrition, severe cachexia, dehydration, and electrolyte derangement, likely acute on chronic, present on admission. Active. -BMI 11.3. -Patient with very little PO intake over the past few weeks, but symptoms have been progressive over the past 3-5 years. 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 Likely secondary to alcohol dependence recently in remission, severe depression, and partial obstructing sigmoid mass. -CT chest, abdomen and pelvis with contrast demonstrated partially obstructing neoplasm in the proximal sigmoid, severe emphysema, and multiple areas of parenchymal fibrosis which also may be infectious or post inflammatory. -Continue IV fluid hydration with D5NS at 75 mL/hr, electrolyte monitoring (sodium, potassium, magnesium and phosphorus) and repletion, continue a clear liquid diet with pureed/thin diet due to concern for sigmoid mass complete obstruction and perforation and TPN per dietitian recommendations with caution for refeeding syndrome. Started on antibiotics for possible aspiration. -Continue dietitian and speech therapy evaluation and treatment. 2. Sigmoid mass with partial colon obstruction, present on admission. Active. -CT chest, abdomen and pelvis with contrast demonstrated partially obstructing neoplasm in the proximal sigmoid, severe emphysema, and multiple areas of parenchymal fibrosis which also may be infectious or post inflammatory. There does not appear to be any metastatic disease at least on CT imaging. -CEA elevated at 4.7. -Consulted general surgery, Dr. Marks, who recommended sigmoidectomy with probable colostomy. The patient is high risk surgical candidate due to severe malnourishment. There is also concern that the patient will have complete obstruction with perforation in near future if no medical intervention is pursued. The patient has not made a decision whether to continue full medical treatment with nutritional repletion and planned surgery for sigmoid resection versus palliative care and discontinue all medical intervention. Patient has prior experience watching his father with colon cancer endure aggressive medical treatment and what he perceived as undo suffering. He has significant aversion to colostomies as well and he would undoubtedly require an ostomy -Consulted psychiatry, Dr. Levine, to assess the patient is severe depression and decision-making capacity. We appreciate her time and recommendations. 3. Aspiration pneumonia, in setting of severe emphysema and severe protein calorie malnutrition with full body muscle and subcutaneous fat wasting, present on admission. Active. -Patient has severe protein calorie malnutrition with full body muscle and subcutaneous fat wasting with oropharyngeal weakness with chronic aspiration as he chokes on every time he consumes PO intake. -CT chest, abdomen and pelvis with contrast demonstrated partially obstructing neoplasm in the proximal sigmoid, severe emphysema, and multiple areas of parenchymal fibrosis which also may be infectious or post inflammatory. -Continue dietitian and speech therapy evaluation and treatment. -Continue renally dose Zosyn 2.25 g every 6 hours. -Continue morphine 2 mg every 2 hours as needed for shortness of breath or severe breakthrough pain as below. -Continue respiratory therapy evaluation and treatment. May use supplemental oxygen as necessary to maintain oxygen saturations 88-92%. Continue DuoNebs every 4 hours and albuterol nebs every 2 hours as needed for shortness of breath or wheezing. 4. Acute kidney injury, present on admission. Resolved. -Likely secondary to severe dehydration, malnourishment, and probable rhabdomyolysis although CK was only mildly elevated at 272 patient has severe cachexia with full body muscle and subcutaneous fat wasting therefore likelihood of significant CK elevation is improbable. -Initial creatinine 2.1. Unknown baseline creatinine. Creatinine trended down to normal now 1.0. -Continue IV fluid hydration as above. -Avoid nephrotoxic agents and renally dose medications. -Continue to monitor creatinine daily. 5. Elevated troponin, present on admission. Resolved. -Likely secondary to demand ischemia from severe malnourished min dehydration. -Patient denies chest pain or pressure. -Initial troponin 0.101 and trended down with 0.076 with IV fluid hydration. No need to further trend. -EKG demonstrated normal sinus rhythm without acute ischemic changes such as ST elevation or depression. -Echocardiogram technically difficult but did not demonstrate any wall motion abnormalities in and tacked EF of 60-65 %. 6. Normocytic anemia and thrombocytopenia, acuity unclear, present on admission. Active. -Multifactorial and secondary to possible GI bleed from sigmoid mass and bone marrow suppression from severe malnourishment. Patient also likely hemoconcentrated due to dehydration and blood counts will likely plummet. -Initial hemoglobin 12.4 and platelets 131. Blood counts trending down with hemoglobin 9.3 and platelets 36. Transfusion goal hemoglobin < 8.0 and platelets < 20 or significant bleeding. Discontinued VTE prophylaxis as patient had oozing from IV yesterday with platelets continuing to drop now 36 and plan for transfusion of 1 unit platelets. -Iron panel demonstrated iron deficiency anemia likely due to sigmoid mass. -B12 normal at 486 and folate normal at 8.5. -Continue to monitor CBC daily. 7. Severe major depressive disorder, present on admission. Active. -Started citalopram 10 mg daily today. Patient reports fatigue, feelings of sadness, lack of desire for food which is somewhat complicated by likely malignancy. -Consulted psychiatry, Dr. Levine, to assess the patient is severe depression and decision-making capacity. We appreciate her time and recommendations. 8. Oral thrush, acuity unclear, present on admission. Resolving. -HIV and hepatitis-C negative. -Continue clotrimazole gwen 5x daily. 9. Sacral fractures, unknown chronicity, present on admission -Likely old given prior falls and reported pain but may be acute with a fall 2 days prior to admission. -Continue pain control as necessary with acetaminophen 650 mg every 6 hours as needed for mild pain, oxycodone 5 mg every 6 hours for [id number] pain and morphine 2 mg every 2 hours as needed for severe breakthrough pain. -Attempted physical and occupational therapy evaluation and treatment but patient declined. Code status: DNR/DNI as discussed with the patient, surrogate decision maker is the patient's sister VTE prophylaxis: Chemical prophylaxis contraindicated with severe thrombocytopenia and bleeding. Disposition: Patient remains hospitalized pending decision to treat partial obstructing sigmoid mass or discontinue medical intervention and pursue palliative care. Quality VTE Deep Vein Thrombosis/Pulmonary Embolism Present on Admission: No
[2020-02-03] MEDS: AA 5 %/CALCIUM/LYTES/DEXT 20 % 1,000 ML with MULTIVITAMIN 10 ML, TRACE ELEMENTS 1 ML, F... 25 ML IV (19:10)
[2020-02-03 19:41] LABS: Add Manual Diff / Slide Review NO; Basophils Absolute Auto 0 /uL (0-100); Basophils Percent Auto 0.2 % (0-2); Eosinophils Absolute Auto 0 /uL (0-450); Eosinophils Percent Auto 0.2 % (2-4); Hemoglobin 8.1 g/dL (13.5-17.5); Lymphocytes Absolute Auto 800 /uL (1100-4500); Lymphocytes Percent Auto 10.8 % (25-40); Mean Corpuscular HGB Conc 33.9 % (30-36); Mean Corpuscular Hemoglobin 33.4 PG (26-34); Mean Corpuscular Volume 98.5 fL (80-100); Monocytes Absolute Auto 300 /uL (0-900); Monocytes Percent Auto 3.5 % (3-14); Neutrophils Absolute Auto 6200 /uL (1500-7000); Neutrophils Percent Auto 85.3 % (50-75); Platelet Count 83 X10^3/uL (150-400); Red Blood Cell Count 2.43 X10^6/uL (4.5-5.9); Red Cell Distribution Width 13.9 % (11.6-14.8); White Blood Cell Count 7.2 X10^3/uL (4.5-11.0)
[2020-02-03 19:53] LABS: BUN Creatinine Ratio 67.9 (6-22); Blood Urea Nitrogen 55 mg/dL (9-20); Calcium 7.7 mg/dL (8.4-10.2); Carbon Dioxide 20 mmol/L (22-32); Chloride 113 mmol/L (98-107); Estimated Glomerular Filt Rate > 60.0 mL/min (>60); Glucose 105 mg/dL (80-110); HEMOLYSIS < 15 (0-50); Magnesium 1.7 mg/dL (1.6-2.3); Sodium 140 mmol/L (137-145)
[2020-02-03 19:59] LABS: Potassium 2.7 mmol/L (3.4-5.1)
--- NOTE | 2020-02-03 23:23 | PC.NURSE ---
Assumed care of pt at 1530. Pt resting in bed. Upon assessment at 1600 Pt states I don't want all this stuff. This filing writer asked pt to clarify his statements and asked if he wants to continue with medical treatment or to be kept comfortable. Pt replied I want to be comfortable Reported Pain to abdomen. Medicated per Aug. Dr. Garcia notified of pt's statements. Dr. Garcia consulted with pt, see her documentation for details. K rider and Mag rider ordered by . Clarified orders as pt has many IV fluids infusing and express concern for fluid overload and concerns of electrolyte replacement without Telemetry. Per DENISHA Boss. Pause D5NS @ 75 while riders infuse and resume once completed and keep riders ordered as written. No new orders for telemetry at this time. Report given to noc RN. Noc RN will complete infusions.
[2020-02-04] VITALS: BP 85/65; PULSE 110; RESP 20; TEMP 36.2; O2SAT 93
[2020-02-04] MEDS: MAGNESIUM SULFATE 2 GM/50 ML PIGGYBACK IV (00:17)
[2020-02-04] MEDS: POTASSIUM CHLORIDE 40 MEQ in SODIUM CHLORIDE 0.9% 500 ML 130 ML IV ×2 (00:19→06:14)
[2020-02-04] MEDS: MORPHINE 2 MG/ML INJ IV ×4 (03:29→18:38)
[2020-02-04 04:00] VITALS: O2SAT 94
[2020-02-04 04:23] VITALS: BP 125/64; PULSE 91; RESP 20; TEMP 35.9; O2SAT 93
[2020-02-04 05:09] LABS: Add Manual Diff / Slide Review NO; Basophils Absolute Auto 0 /uL (0-100); Basophils Percent Auto 0.1 % (0-2); Eosinophils Absolute Auto 0 /uL (0-450); Eosinophils Percent Auto 0.3 % (2-4); Lymphocytes Absolute Auto 800 /uL (1100-4500); Mean Corpuscular HGB Conc 33.6 % (30-36); Mean Corpuscular Hemoglobin 33.4 PG (26-34); Mean Corpuscular Volume 99.3 fL (80-100); Monocytes Absolute Auto 300 /uL (0-900); Monocytes Percent Auto 4.1 % (3-14); Neutrophils Absolute Auto 5800 /uL (1500-7000); Neutrophils Percent Auto 84.5 % (50-75); Red Cell Distribution Width 14.1 % (11.6-14.8); White Blood Cell Count 6.9 X10^3/uL (4.5-11.0)
[2020-02-04 05:18] LABS: Hematocrit 23.8 % (41-53); Platelet Count 65 X10^3/uL (150-400)
[2020-02-04 05:36] LABS: Alanine Aminotransferase 10 IU/L (<50); Albumin Globulin Ratio 0.8 (1.0-2.8); Alkaline Phosphatase 63 U/L (38-126); Aspartate Aminotransferase 20 IU/L (17-59); Bilirubin Total 0.6 mg/dL (0.2-1.3); Blood Urea Nitrogen 46 mg/dL (9-20); Calcium 7.5 mg/dL (8.4-10.2); Carbon Dioxide 20 mmol/L (22-32); Chloride 119 mmol/L (98-107); Estimated Glomerular Filt Rate > 60.0 mL/min (>60); Globulin 2.4 g/dL (1.7-4.1); Glucose 106 mg/dL (80-110); HEMOLYSIS < 15 (0-50); Magnesium 2.4 mg/dL (1.6-2.3); Phosphorous 2.8 mg/dL (2.3-3.7); Potassium 3.5 mmol/L (3.4-5.1); Sodium 142 mmol/L (137-145); Total Protein 4.4 g/dL (6.3-8.2)
[2020-02-04 05:42] LABS: Procalcitonin 0.95 ng/mL (<0.5)
[2020-02-04] MEDS: CLOTRIMAZOLE TROCHE 10 MG PO (06:15)
[2020-02-04] MEDS: PIPERACILLIN-TAZO 2.25 GM/50 ML FROZ.PIGGY IV (06:22)
--- NOTE | 2020-02-04 07:21 | DIET.PN ---
Dietary Progress Note Weekend f/u for severely malnourished 59y M admitted for adult failure to thrive found to have nearly obstructing sigmoid colon mass followed by RD for calorie count and TPN for safe replenishment. Per nursing notes, pt prefers PO meals to TPN, does not want to move forward with surgery to remove sigmoid mass, however pending ethics committee Wednesday. TPN running @ 17.5mL/h having advanced +2.5mL/h in 36h providing 400kcal and 20g PRO/d. Pt meals small, limiting kcals while in critical refeeding window. Pt received repletion order for Mg (1.7), Phos (1.9 L), K+ (2.7 L) on 02/04/2020 now WNL. Pt is +1.9kg in 3d. Pt receiving small meal trays Dysphagia Puree/thin avoiding soluble fiber to not further block sigmoid mass, pt eating slowly but appears to be tolerating c some abd distention. Breakfast on 02/03: pureed scrambled egg, pureed fresh cantaloupe, 1/2 packet ONS Dillon mixed in water per PCM. Nursing/[employer]ICE [employer] weekend teams did not follow calorie count protocol so unclear amount pt is eating besides a few bites of each item. Kitchen will continue sending 1/2 portion PRO c pureed F/V and 1/2 packet Dillon at meals. Room Service will check in c pt for preferences on these items if accepting visitors. HT: 180.3cm WT: 38.5kg UBW: 70.5kg BMI: 11.8 (severe) Nutrition Diagnosis: ONGOING Severe Acute PCM r/t difficulty eating secondary to untreated nearly obstructing sigmoid colon mass aeb 48% unintentional wt loss in 2y, BMI 11.6 (severe), pt subsisting on 20oz Pepsi/d for 2 mo. Interventions: Recc Continuous TPN via PICC Clinimix 11/14, no IVFE lipids until outside refeeding window. Recc careful titration q12h by 5mL as tolerated for 3d. Temporary goal rate set to 42mL/h providing 880kcals and 50g PRO pt currently @ 17.5mL/h so will be slow ramping up. Continue to offer pt small meals of high PRO foods. Monitoring/Evaluations: RD following daily
[2020-02-04 08:00] VITALS: BP 79/50; PULSE 94; RESP 15; TEMP 36.2; O2SAT 92
[2020-02-04 11:30] VITALS: O2SAT 89
--- NOTE | 2020-02-04 11:49 | P.PN_ITS ---
Subjective Subjective Date Patient Seen: 02/04/20 Interval history: Rusty Jauregui is a 59-year-old male with a past medical history significant for alcohol dependence in remission and nicotine dependence who presented to the ED with severe weakness, cachexia and inability to get up from floor after a fall x 2 days The patient is resting comfortably in bed. The patient is awake and alert this morning. Discussed this decision whether or not to pursue surgical intervention which the patient informs me that he has made the decision not to pursue surgical intervention. He would like to be kept comfortable and if at all possible return home with hospice to . He understands that if he does not pursue surgical intervention he will . Plan to stop all medical interventions and pursue palliative care. The patient's sister Nancy Tapia is at bedside and reports that the patient has been adamant about his wishes since watching his mother and father go through cancer treatment. She is hopeful that he will pass quickly and without undue suffering. Exam Vital Signs (past 8 hours): - 02/04/20 04:00 02/04/20 04:23 02/04/20 08:00 Temperature 96.7 F L 97.2 F L Pulse Rate 91 H 94 H Respiratory Rate 20 15 Blood Pressure 125/64 79/50 L Pulse Oximetry 94 93 92 02/04/20 11:30 Temperature Pulse Rate Respiratory Rate Blood Pressure Pulse Oximetry 89 L Fraction of Inspired Oxygen 96 Oxygen Delivery Method Room Air Oxygen Flow Rate 0 Narrative Exam Narrative: General: Older severely cachetic and emaciated appearing male lying in bed and in no acute distress, severely depressed but appropriately interactive. HEENT: Normocephalic, atraumatic. External ears without defect. Pupils equal, round, and reactive to light. Anicteric sclerae, moist conjunctivae, and no lid lag. Bitemporal and full body severe muscle and subcutaneous fat wasting. Neck: Full range of motion. No jugular venous distension. No lymphadenopathy or thyromegaly. Cardiovascular: Bony protrusion of clavicle and ribs makes auscultation difficult but appears to be regular rate and rhythm without murmurs, rubs, or gallops appreciated. Pulmonary: Coarse lung sound throughout. No wheezes. Abdomen: Abdomen firm, increasing moderate distention, bowel sounds hypoactive, nontender. Extremities: No clubbing, cyanosis, or edema. No muscle mass on extremities. Scattered ecchymoses spread throughout upper body. Neurological: Cranial nerves grossly intact. Psychiatric: Severely depressed mood and flat affect. Alert and oriented to person, place, and time. No suicidal ideation or plan. Objective Labs Result Diagrams: 02/04/20 04:20 02/04/20 04:20 Labs: Laboratory Results - last 24 hr 02/03/20 02/03/20 02/03/20 07:05 19:30 19:30 WBC 7.2 RBC 2.43 L Hgb 8.1 L Hct 24.0 L MCV 98.5 MCH 33.4 MCHC 33.9 RDW 13.9 Plt Count 83 L Neut % (Auto) 85.3 H Lymph % (Auto) 10.8 L [place] % (Auto) 3.5 Eos % (Auto) 0.2 L Baso % (Auto) 0.2 Neut # (Auto) 6200 Lymph # (Auto) 800 L [place] # (Auto) 300 Eos # (Auto) 0 Baso # (Auto) 0 Sodium 140 Potassium 2.7 L* Chloride 113 H Carbon Dioxide 20 L BUN 55 H Creatinine 0.81 Estimated GFR > 60.0 BUN/Creatinine Ratio 67.9 H Glucose 105 Calcium 7.7 L Phosphorus Magnesium 1.7 Total Bilirubin AST ALT Alkaline Phosphatase Total Protein Albumin Globulin Albumin/Globulin Ratio Procalcitonin Blood Type O Positive Antibody Screen Negative 02/04/20 02/04/20 02/04/20 04:20 04:20 04:20 WBC 6.9 RBC 2.40 L Hgb 8.0 L Hct 23.8 L MCV 99.3 MCH 33.4 MCHC 33.6 RDW 14.1 Plt Count 65 L Neut % (Auto) 84.5 H Lymph % (Auto) 11.0 L [place] % (Auto) 4.1 Eos % (Auto) 0.3 L Baso % (Auto) 0.1 Neut # (Auto) 5800 Lymph # (Auto) 800 L [place] # (Auto) 300 Eos # (Auto) 0 Baso # (Auto) 0 Sodium 142 Potassium 3.5 Chloride 119 H Carbon Dioxide 20 L BUN 46 H Creatinine 0.78 Estimated GFR > 60.0 BUN/Creatinine Ratio 59.0 H Glucose 106 Calcium 7.5 L Phosphorus 2.8 Magnesium 2.4 H Total Bilirubin 0.6 AST 20 ALT 10 Alkaline Phosphatase 63 Total Protein 4.4 L Albumin 2.0 L Globulin 2.4 Albumin/Globulin Ratio 0.8 L Procalcitonin 0.95 H Blood Type Antibody Screen Assessment & Plan Assessment & Plan narrative: Rusty Jauregui is a 59-year-old male with a past medical history significant for alcohol dependence in remission and nicotine dependence who presented to the ED with severe weakness, cachexia and inability to get up from floor after a fall x 2 days 1. Palliative and end of life care. -The patient made the decision not to continue full medical treatment with nutritional repletion and surgical intervention for sigmoid resection and plan to pursue palliative care. The patient is actively dying. -Continue comfort care medications: including acetaminophen, morphine, lorazepam, Benadryl, scopolamine and atropine. -Continue Vences for comfort. 2. Failure to thrive with severe protein calorie malnutrition, severe cachexia, dehydration, and electrolyte derangement, likely acute on chronic, present on admission. Active. -BMI 11.3. -Patient with very little PO intake over the past few weeks, but symptoms have been progressive over the past 3-5 years. 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 Likely secondary to alcohol dependence recently in remission, severe depression, and partial obstructing sigmoid mass. -CT chest, abdomen and pelvis with contrast demonstrated partially obstructing neoplasm in the proximal sigmoid, severe emphysema, and multiple areas of parenchymal fibrosis which also may be infectious or post inflammatory. -Discontinued dietitian and speech therapy evaluation and treatment. -Discontinued all unnecessary interventions including IV fluid hydration, electrolyte monitoring (sodium, potassium, magnesium and phosphorus) and repletion, and TPN as patient is palliative care and actively dying. 3. Sigmoid mass with partial colon obstruction, present on admission. Active. -Patient has prior experience watching his father with colon cancer endure aggressive medical treatment and what he perceived as undo suffering. He has significant aversion to colostomies as well and he would undoubtedly require an ostomy. -CT chest, abdomen and pelvis with contrast demonstrated partially obstructing neoplasm in the proximal sigmoid, severe emphysema, and multiple areas of parenchymal fibrosis which also may be infectious or post inflammatory. There does not appear to be any metastatic disease at least on CT imaging. -CEA elevated at 4.7. -Consulted psychiatry, Dr. Levine, to assess the patient is severe depression and decision-making capacity. We appreciate her time and recommendations. -Consulted general surgery, Dr. Marks, who recommended sigmoidectomy with probable colostomy. The patient is high risk surgical candidate due to severe malnourishment. There was concern that the patient will have complete obstruction with perforation in near future if no medical intervention is pursued. -The patient made the decision not to continue full medical treatment with nutr itional repletion and surgical intervention for sigmoid resection and plan to pursue palliative care as above and patient is actively dying. 4. Aspiration pneumonia, in setting of severe emphysema and severe protein calorie malnutrition with full body muscle and subcutaneous fat wasting, present on admission. Active. -Patient has severe protein calorie malnutrition with full body muscle and subc utaneous fat wasting with oropharyngeal weakness with chronic aspiration as he chokes on every time he consumes PO intake. -CT chest, abdomen and pelvis with contrast demonstrated partially obstructing neoplasm in the proximal sigmoid, severe emphysema, and multiple areas of parenchymal fibrosis which also may be infectious or post inflammatory. -Discontinued dietitian and speech therapy evaluation and treatment. -Discontinued renally dose Zosyn 2.25 g every 6 hours. -Discontinued respiratory therapy evaluation and treatment. Discontinued DuoNebs every 4 hours and albuterol nebs every 2 hours as needed for shortness of breath or wheezing. May use supplemental oxygen as necessary for comfort. 5. Acute kidney injury, present on admission. Resolved. -Likely secondary to severe dehydration, malnourishment, and probable rhabdomyolysis although CK was only mildly elevated at 272 patient has severe cachexia with full body muscle and subcutaneous fat wasting therefore likelihood of significant CK elevation is improbable. -Initial creatinine 2.1. Unknown baseline creatinine. Creatinine trended down to normal. -Discontinued IV fluid hydration. -Avoided nephrotoxic agents and renally dosed medications. -Discontinued monitoring renal function as patient is palliative care and actively dying. 6. Elevated troponin, present on admission. Resolved. -Likely secondary to demand ischemia from severe malnourished min dehydration. -Patient denies chest pain or pressure. -Initial troponin 0.101 and trended down with 0.076 with IV fluid hydration. No need to further trend. -EKG demonstrated normal sinus rhythm without acute ischemic changes such as ST elevation or depression. -Echocardiogram technically difficult but did not demonstrate any wall motion abnormalities in and tacked EF of 60-65 %. 7. Normocytic anemia and thrombocytopenia, acuity unclear, present on admission. Active. -Multifactorial and secondary to possible GI bleed from sigmoid mass and bone marrow suppression from severe malnourishment. Patient also likely hemoconcentrated due to dehydration and blood counts will likely plummet. -Initial hemoglobin 12.4 and platelets 131. Blood counts trending down with hem oglobin 9.3 and platelets 36. Transfusion goal hemoglobin < 8.0 and platelets < 20 or significant bleeding. Received 1 unit platelets. Discontinued VTE prophylaxis. -Iron panel demonstrated iron deficiency anemia likely due to sigmoid mass. B12 normal at 486 and folate normal at 8.5. -Discontinued monitoring CBC as patient is palliative care and actively dying. 8. Severe major depressive disorder, present on admission. Active. -Patient reported fatigue, feelings of sadness, lack of desire for food which is somewhat complicated by likely malignancy. -Started citalopram 10 mg daily then discontinued as patient is palliative care and actively dying. -Consulted psychiatry, Dr. Levine, to assess the patient is severe depression and decision-making capacity who deemed the patient to have capacity. We appreciate her time and recommendations. 9. Oral thrush, acuity unclear, present on admission. Resolving. -HIV and hepatitis-C negative. -Discontinued clotrimazole gwen as patient is palliative care and actively dying. 10. Sacral fractures, unknown chronicity, present on admission -Likely old given prior falls and reported pain but may be acute with a fall 2 days prior to admission. -Attempted physical and occupational therapy evaluation and treatment but patient declined. -Continue pain control as above. Code status: DNR/DNI as discussed with the patient, surrogate decision maker is the patient's sister VTE prophylaxis: Contraindicated Disposition: Patient will likely in next 24-48 hours. Quality VTE Deep Vein Thrombosis/Pulmonary Embolism Present on Admission: No
[2020-02-04 12:05] VITALS: BP 86/40; PULSE 78; RESP 16; TEMP 36; O2SAT 90
--- NOTE | 2020-02-04 14:16 | CM.DPC ---
DCP Comfort Care Per MD, discussion today with pt and was able to have pt clearly state that his wishes are to be comfortable and no intervention with the understanding that it will lead to his demise. Pt changed to Comfort Care. Per RN, pt has significantly declined in health since yesterday but able to still be alert and oriented and communicate his wishes. EMANUEL met bedside with pt and his sister Nancy once she arrived bedside and explained role. Nancy aware that pt is now Comfort Care and Nancy confirms that she had Hospice Info Visit via phone yesterday and now seeing the pt and how much he has declined in health she does not feel that he could adequately be supported at home in his apartment and aware that pt may here in the hospital and sister feels that pt looks to be imminent. Preference is for pt to stay in the hospital overnight to determine if pt expires or declines even further in health. EMANUEL updated who plans to meet bedside with pt and sister to discuss any further medical questions. SW provided a list of local [facility] and [place] [facility] per sister's request. Sister quite tearful due to pt's rapid decline in health and multiple family deaths recently with grief and loss anniversaries. Plan: SW to follow to determine how pt does overnight and seems quite imminent and likely to in the hospital pending progress. LATANYA Denise
--- NOTE | 2020-02-04 16:10 | PC.NURSE ---
Addendum entered by Beba Peterson R.N. 02/04/20 23:04: Sister off unit at approx 1800. Pt resting quietly. Medicating prn for s/s of discomfort. RR WNL, Non-labored breathing. Original Note: Assumed care of pt at 1530. Pt resting in bed. Sister at bedside. Pt stated he does not want vitals and full nursing assessment but wants limited interventions to be kept comfortable. Comfort care nourishment cart placed in room for Visitors. Medicating per aug. Warm blankets and repositioning to maintain level of comfort as pt and sister express.
[2020-02-04] MEDS: LORazepam 2 MG/ML INJ 1 MG IV (20:03)
[2020-02-05] MEDS: MORPHINE 2 MG/ML INJ IV ×4 (06:14→18:47)
[2020-02-05 06:33] VITALS: BP 73/56; PULSE 101; RESP 12; O2SAT 90
--- NOTE | 2020-02-05 07:58 | SLP.IPNOTE ---
Patient on comfort care. D/c ST orders.
[2020-02-05 08:29] VITALS: PULSE 96; RESP 24; O2SAT 93
--- NOTE | 2020-02-05 09:16 | PM.PN.1 ---
Subjective Subjective Date Patient Seen: 02/05/20 Interval history: Patient lying in bed comatose and unresponsive. He appears slightly uncomfortable and plan to give his comfort medications. Patient will likely in the next 24 hours. Exam Vital Signs (past 8 hours): - 02/05/20 15:40 Temperature 99.4 F Pulse Rate 110 H Respiratory Rate 22 Blood Pressure 73/50 L Pulse Oximetry 80 L Fraction of Inspired Oxygen 96 Oxygen Delivery Method Room Air Oxygen Flow Rate 0 Narrative Exam Narrative: General: Older severely cachetic and emaciated appearing male, comatose and unresponsive, actively dying. HEENT: Normocephalic, atraumatic. External ears without defect. Bitemporal and full body severe muscle and subcutaneous fat wasting. Pulmonary: Jules-Allen breathing. Objective Labs Result Diagrams: 02/04/20 04:20 02/04/20 04:20 Assessment & Plan Assessment & Plan narrative: Rusty Jauregui is a 59-year-old male with a past medical history significant for alcohol dependence in remission and nicotine dependence who presented to the ED with severe weakness, cachexia and inability to get up from floor after a fall x 2 days 1. Palliative and end of life care. -The patient made the decision not to continue full medical treatment with nutritional repletion and surgical intervention for sigmoid resection and plan to pursue palliative care. The patient is actively dying. -Continue comfort care medications: including acetaminophen, morphine, lorazepam, Benadryl, scopolamine and atropine. -Continue Vences for comfort. 2. Failure to thrive with severe protein calorie malnutrition, severe cachexia, dehydration, and electrolyte derangement, likely acute on chronic, present on admission. Active. -BMI 11.3. -Patient with very little PO intake over the past few weeks, but symptoms have been progressive over the past 3-5 years. 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 Likely secondary to alcohol dependence recently in remission, severe depression, and partial obstructing sigmoid mass. -CT chest, abdomen and pelvis with contrast demonstrated partially obstructing neoplasm in the proximal sigmoid, severe emphysema, and multiple areas of parenchymal fibrosis which also may be infectious or post inflammatory. -Discontinued dietitian and speech therapy evaluation and treatment. -Discontinued all unnecessary interventions including IV fluid hydration, electrolyte monitoring (sodium, potassium, magnesium and phosphorus) and repletion, and TPN as patient is palliative care and actively dying. 3. Sigmoid mass with partial colon obstruction, present on admission. Active. -Patient has prior experience watching his father with colon cancer endure aggressive medical treatment and what he perceived as undo suffering. He has significant aversion to colostomies as well and he would undoubtedly require an ostomy. -CT chest, abdomen and pelvis with contrast demonstrated partially obstructing neoplasm in the proximal sigmoid, severe emphysema, and multiple areas of parenchymal fibrosis which also may be infectious or post inflammatory. There does not appear to be any metastatic disease at least on CT imaging. -CEA elevated at 4.7. -Consulted psychiatry, Dr. Levine, to assess the patient is severe depression and decision-making capacity. We appreciate her time and recommendations. -Consulted general surgery, Dr. Marks, who recommended sigmoidectomy with probable colostomy. The patient is high risk surgical candidate due to severe malnourishment. There was concern that the patient will have complete obstruction with perforation in near future if no medical intervention is pursued. -The patient made the decision not to continue full medical treatment with nutritional repletion and surgical intervention for sigmoid resection and plan to pursue palliative care as above and patient is actively dying. 4. Aspiration pneumonia, in setting of severe emphysema and severe protein calorie malnutrition with full body muscle and subcutaneous fat wasting, present on admission. Active. -Patient has severe protein calorie malnutrition with full body muscle and subcutaneous fat wasting with oropharyngeal weakness with chronic aspiration as he chokes on every time he consumes PO intake. -CT chest, abdomen and pelvis with contrast demonstrated partially obstructing neoplasm in the proximal sigmoid, severe emphysema, and multiple areas of parenchymal fibrosis which also may be infectious or post inflammatory. -Discontinued dietitian and speech therapy evaluation and treatment. -Discontinued renally dose Zosyn 2.25 g every 6 hours. -Discontinued respiratory therapy evaluation and treatment. Discontinued DuoNebs every 4 hours and albuterol nebs every 2 hours as needed for shortness of breath or wheezing. May use supplemental oxygen as necessary for comfort. 5. Acute kidney injury, present on admission. Resolved. -Likely secondary to severe dehydration, malnourishment, and probable rhabdomyolysis although CK was only mildly elevated at 272 patient has severe cachexia with full body muscle and subcutaneous fat wasting therefore likelihood of significant CK elevation is improbable. -Initial creatinine 2.1. Unknown baseline creatinine. Creatinine trended down to normal. -Discontinued IV fluid hydration. -Avoided nephrotoxic agents and renally dosed medications. -Discontinued monitoring renal function as patient is palliative care and actively dying. 6. Elevated troponin, present on admission. Resolved. -Likely secondary to demand ischemia from severe malnourished min dehydration. -Patient denies chest pain or pressure. -Initial troponin 0.101 and trended down with 0.076 with IV fluid hydration. No need to further trend. -EKG demonstrated normal sinus rhythm without acute ischemic changes such as ST elevation or depression. -Echocardiogram technically difficult but did not demonstrate any wall motion abnormalities in and tacked EF of 60-65 %. 7. Normocytic anemia and thrombocytopenia, acuity unclear, present on admission. Active. -Multifactorial and secondary to possible GI bleed from sigmoid mass and bone marrow suppression from severe malnourishment. Patient also likely hemoconcentrated due to dehydration and blood counts will likely plummet. -Initial hemoglobin 12.4 and platelets 131. Blood counts trending down with hemoglobin 9.3 and platelets 36. Transfusion goal hemoglobin < 8.0 and platelets < 20 or significant bleeding. Received 1 unit platelets. Discontinued VTE prophylaxis. -Iron panel demonstrated iron deficiency anemia likely due to sigmoid mass. B12 normal at 486 and folate normal at 8.5. -Discontinued monitoring CBC as patient is palliative care and actively dying. 8. Severe major depressive disorder, present on admission. Active. -Patient reported fatigue, feelings of sadness, lack of desire for food which is somewhat complicated by likely malignancy. -Started citalopram 10 mg daily then discontinued as patient is palliative care and actively dying. -Consulted psychiatry, Dr. Levine, to assess the patient is severe depression and decision-making capacity who deemed the patient to have capacity. We appreciate her time and recommendations. 9. Oral thrush, acuity unclear, present on admission. Resolving. -HIV and hepatitis-C negative. -Discontinued clotrimazole gwen as patient is palliative care and actively dying. 10. Sacral fractures, unknown chronicity, present on admission -Likely old given prior falls and reported pain but may be acute with a fall 2 days prior to admission. -Attempted physical and occupational therapy evaluation and treatment but patient declined. -Continue pain control as above. Code status: DNR/DNI as discussed with the patient, surrogate decision maker is the patient's sister VTE prophylaxis: Contraindicated Disposition: Patient will likely in next 24 hours. Quality VTE Deep Vein Thrombosis/Pulmonary Embolism Present on Admission: No
[2020-02-05] MEDS: SODIUM CHLORIDE 0.9% FLUSH 10 ML IV ×3 (09:39→22:58)
[2020-02-05 12:32] VITALS: PULSE 98; RESP 20; O2SAT 90
[2020-02-05 13:17] VITALS: O2SAT 90
--- NOTE | 2020-02-05 13:49 | CM.DPC ---
DCP Likely Imminent Per MD, pt now obtunded and non-responsive and anticipate that pt's demise is imminent for likely today. Sister had been bedside into the evening yesterday and aware that pt is imminent. Plan: SW to follow closely today to determine if pt to here today. If pt remains stable may need to consider SNF on 5 days MCR Comfort Measures, no safe plan for home with Hospice at this time. LATANYA Denise
[2020-02-05 15:40] VITALS: BP 73/50; PULSE 110; RESP 22; TEMP 37.4; O2SAT 80
--- NOTE | 2020-02-05 18:58 | PC.NURSE ---
EVENING SHIFT: End-of-life/comfort care. Pt. occasionally opens eyes, otherwise non-responsive. One set of vital signs obtained at beginning of shift and pain meds given for appropriate FLACC score. Turned for comfort and skin integrity. Otherwise minimal intervention. Sister Nancy called; update given via phone. She asked that we call her if he passes, but not between the hours of [phone].
[2020-02-06] MEDS: MORPHINE 2 MG/ML INJ IV ×4 (06:22→10:16)
[2020-02-06] MEDS: SODIUM CHLORIDE 0.9% FLUSH 10 ML IV ×5 (06:23→20:57)
--- NOTE | 2020-02-06 06:58 | PC.NURSE ---
Pt. restless & resp. shallow & labored, 2 mg. of Morphine admin. will monitor.
[2020-02-06] MEDS: MORPHINE 4 MG/ML INJ IV (08:06)
[2020-02-06 08:18] VITALS: PULSE 118; RESP 26; O2SAT 93
[2020-02-06] MEDS: MORPHINE 50 MG in DEXTROSE 5 % IN WATER 45 ML IV ×3 (11:38→14:10)
[2020-02-06 12:13] VITALS: RESP 22
[2020-02-06 13:36] VITALS: RESP 24
--- NOTE | 2020-02-06 13:59 | P.PN_ITS ---
Subjective Subjective Date Patient Seen: 02/06/20 Interval history: Patient is a 59-year-old male in the hospital currently on a morphine drip for end of life care. Patient is agonal at this point. His morphine drip has been increased from to to 3 milligrams/hour. Exam Vital Signs (past 8 hours): - 02/06/20 08:18 02/06/20 12:13 02/06/20 13:36 Pulse Rate 118 H Respiratory Rate 26 H 22 24 Pulse Oximetry 93 Fraction of Inspired Oxygen 96 Oxygen Delivery Method Room Air Oxygen Flow Rate 0 Narrative Exam Narrative: Mac 78 cachectic male with agonal breathing Lungs: Clear to auscultation, decreased Cardiac exam regular rate and rhythm normal S1-S2 Abdomen: Distended soft nontender Extremities: No edema Skin exam: Patient is deeply jaundice, multiple ecchymoses, angiomata, on chest and upper extremity Objective Labs Result Diagrams: 02/04/20 04:20 02/04/20 04:20 Assessment & Plan Assessment & Plan narrative: Rusty Jauregui is a 59-year-old male with a past medical history significant for alcohol dependence in remission and nicotine dependence who presented to the ED with severe weakness, cachexia and inability to get up from floor after a fall x 2 days 1. Palliative and end of life care. -The patient made the decision not to continue full medical treatment with nutritional repletion and surgical intervention for sigmoid resection and plan to pursue palliative care. The patient is actively dying. -Continue comfort care medications: including acetaminophen, morphine, lorazepam, Benadryl, scopolamine and atropine. On morphine drip, will titrate for comfort. -Continue Vences for comfort. 2. Failure to thrive with severe protein calorie malnutrition, severe cachexia, dehydration, and electrolyte derangement, likely acute on chronic, present on admission. Active. -BMI 11.3. -Patient with very little PO intake over the past few weeks, but symptoms have been progressive over the past 3-5 years. 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 Likely secondary to alcohol dependence recently in remission, severe depression, and partial obstructing sigmoid mass. -CT chest, abdomen and pelvis with contrast demonstrated partially obstructing n eoplasm in the proximal sigmoid, severe emphysema, and multiple areas of parenchymal fibrosis which also may be infectious or post inflammatory. -Discontinued dietitian and speech therapy evaluation and treatment. -Discontinued all unnecessary interventions including IV fluid hydration, electrolyte monitoring (sodium, potassium, magnesium and phosphorus) and repletion, and TPN as patient is palliative care and actively dying. 3. Sigmoid mass with partial colon obstruction, present on admission. Active. -Patient has prior experience watching his father with colon cancer endure aggressive medical treatment and what he perceived as undo suffering. He has significant aversion to colostomies as well and he would undoubtedly require an ostomy. -CT chest, abdomen and pelvis with contrast demonstrated partially obstructing neoplasm in the proximal sigmoid, severe emphysema, and multiple areas of parenchymal fibrosis which also may be infectious or post inflammatory. There does not appear to be any metastatic disease at least on CT imaging. -CEA elevated at 4.7. -Consulted psychiatry, Dr. Levine, to assess the patient is severe depression and decision-making capacity. We appreciate her time and recommendations. -Consulted general surgery, Dr. Marks, who recommended sigmoidectomy with probable colostomy. The patient is high risk surgical candidate due to severe malnourishment. There was concern that the patient will have complete obstruction with perforation in near future if no medical intervention is pursued. -The patient made the decision not to continue full medical treatment with nutritional repletion and surgical intervention for sigmoid resection and plan to pursue palliative care as above and patient is actively dying. 4. Aspiration pneumonia, in setting of severe emphysema and severe protein calorie malnutrition with full body muscle and subcutaneous fat wasting, present on admission. Active. -Patient has severe protein calorie malnutrition with full body muscle and subcutaneous fat wasting with oropharyngeal weakness with chronic aspiration as he chokes on every time he consumes PO intake. -CT chest, abdomen and pelvis with contrast demonstrated partially obstructing neoplasm in the proximal sigmoid, severe emphysema, and multiple areas of parenchymal fibrosis which also may be infectious or post inflammatory. -Discontinued dietitian and speech therapy evaluation and treatment. -Discontinued renally dose Zosyn 2.25 g every 6 hours. -Discontinued respiratory therapy evaluation and treatment. Discontinued DuoNebs every 4 hours and albuterol nebs every 2 hours as needed for shortness of breath or wheezing. May use supplemental oxygen as necessary for comfort. 5. Acute kidney injury, present on admission. Resolved. 6. Elevated troponin, present on admission. Resolved. -Likely secondary to demand ischemia from severe malnourished min dehydration. -Patient denies chest pain or pressure. -Initial troponin 0.101 and trended down with 0.076 with IV fluid hydration. No need to further trend. -EKG demonstrated normal sinus rhythm without acute ischemic changes such as ST elevation or depression. -Echocardiogram technically difficult but did not demonstrate any wall motion abnormalities in and tacked EF of 60-65 %. 7. Normocytic anemia and thrombocytopenia, acuity unclear, present on admission. Active. -Multifactorial and secondary to possible GI bleed from sigmoid mass and bone marrow suppression from severe malnourishment. Patient also likely hemoconcentrated due to dehydration and blood counts will likely plummet. -Initial hemoglobin 12.4 and platelets 131. Blood counts trending down with hemoglobin 9.3 and platelets 36. Transfusion goal hemoglobin < 8.0 and platelets < 20 or significant bleeding. Received 1 unit platelets. Discontinued VTE prophylaxis. -Iron panel demonstrated iron deficiency anemia likely due to sigmoid mass. B12 normal at 486 and folate normal at 8.5. - 8. Severe major depressive disorder, present on admission. Active. -Patient reported fatigue, feelings of sadness, lack of desire for food which is somewhat complicated by likely malignancy. -Started citalopram 10 mg daily then discontinued as patient is palliative care and actively dying. -Consulted psychiatry, Dr. Levine, to assess the patient is severe depression and decision-making capacity who deemed the patient to have capacity. We appreciate her time and recommendations. 9. Oral thrush, acuity unclear, present on admission. Resolving. -HIV and hepatitis-C negative. -Discontinued clotrimazole gwen as patient is palliative care and actively dying. 10. Sacral fractures, unknown chronicity, present on admission -Likely old given prior falls and reported pain but may be acute with a fall 2 days prior to admission. -Attempted physical and occupational therapy evaluation and treatment but patient declined. -Continue pain control as above. Code status: DNR/DNI as discussed with the patient, surrogate decision maker is the patient's sister VTE prophylaxis: Contraindicated Disposition: Patient will likely in next 24 hours. Quality VTE Deep Vein Thrombosis/Pulmonary Embolism Present on Admission: No
[2020-02-06 14:09] VITALS: RESP 22
--- NOTE | 2020-02-06 14:16 | CM.DPC ---
DCP continued: EMR Reviewed: Patient was placed on morphine drip today to help with uncontrolled pain. CM/RN called [facility] to see if they would accept a patient who is on comfort care that has medicaid. she said since patient is INPT and has been here more then 3 midnights they could accept for comfort care however since patient is on IV drip pain medications they can not take patient until they are on PO pain medications. [facility] and [facility] both said the same that they cannot accept patient who is on IV drip pain medications. CM will work to see if their is another option for patients health care needs. Celeste Robertson RN
[2020-02-06 22:24] VITALS: RESP 8
--- NOTE | 2020-02-07 00:17 | P.DN_ITS ---
Discharge Summary History of Illness Narrative: Rusty Jauregui is a 59-year-old male with no known past medical history who presented after a fall 2 days ago at home. He states he was trying to get up to use the restroom when he fell on the ground and had been trying to get his neighbors attention. He denies hitting his head when he fell he does have some skin abrasions on his arm. He denies any preceding nausea, dizziness, chest pain, shortness of breath. He has been very weak for many months. He states he has fallen approximately 3 times in the past 3 years but has never sought medical attention. On a prior fall he had severe pain on his buttock, but not during this episode. He is extremely cachectic stating that he has been unable to eat for the last 2 months because he has seemingly lost his sense of taste, and he has developed some pain in the middle of his throat with swallowing. Prior to this he reports less than less intake actually over the past 3 years. He states he does not go to the doctors and takes no medications. He lives alone but his sister has been checking on him intermittently. He has lost a lot of weight and complains of rectal bleeding and melena over the past few years, and he does complain some abdominal pressure but denies any pain. He denies any history of IV drug use but does endorse prior marijuana use, and significant alcohol intake up to 3/4 of a L of whiskey a day. He has not had a drink in the past 2 months because he has been unable to really tolerate any oral intake. The patient was initially mildly hypotensive into the 80s over 50s, improved somewhat with IV fluids into the 90s. Given his body habitus this is likely his baseline blood pressure. His BMI is 11.3. His labs were notable for a mild anemia with a hemoglobin of 12.4, and a platelet count of 131. I actually think this is somewhat hemoconcentrated and he probably has a more profound anemia and thrombocytopenia. Chemistries were remarkable for a sodium of 130, potassium of 2.7, creatinine of 2.16 with a BUN of 82. Initial lactate was 2.2 improved to 1.4 after initial fluids. Initial bilirubin was 2.7 with no elevation in AST or ALT. CK was 272, initial troponin was 0.101. Procalcitonin was elevated at 4.17. EKG showed prolonged QT with mild ST depressions in V3, but no other evidence of ischemia. Chest x-ray showed no acute processes. Radiograph of his sacrum showed a horizontal fracture and S3 an S4, radiograph of his thoracic spine was negative for acute fractures. Head and neck CT were unremarkable and showed no masses, bleeding, or fractures. Patient was admitted under inpatient status for failure to thrive. Hospital Course Date of Admission: 01/31/20 11:03 Date of : 02/07/20 Consults: 01/31/20 14:28 Consult to Dietitian, Adult Routine Comment: Reason For Exam: weight loss, malnutrition Consult to Discharge Planning Routine Comment: Consult to Occupational Therapy Evaluate & Treat Comment: Physician Instructions: Evaluate and treat Consult to Physical Therapy Evaluate & Treat Comment: Physician Instructions: Evaluate and Treat 01/31/20 15:23 Consult to Speech Therapy Evaluate & Treat Comment: swallow evaluation Physician Instructions: Evaluate and treat 01/31/20 15:37 Consult to Dietitian, Adult Routine Comment: Reason For Exam: significant weight loss; very decreased PO intake 02/01/20 11:56 Consult to General Surgery Routine Comment: Consulting Provider: Chau Marks Reason for consultation: likely colon cancer Has provider been notified: Yes 02/02/20 08:43 Consult to Physician Routine Comment: Consulting Provider: Gordo Levine Reason for consultation: Colon CA, severe depression, ? decision making capacity Has provider been notified: Yes Discharge provider: DENISHA Valenzuela Discharge Diagnosis: Failure to thrive with severe protein malnutrition Sigmoid mass Hospital Course: The patient was admitted on 02/07/2020 and was found to have a sigmoid mass. Discussions were made with both the patient and his sister, next of kin who eventually opted not to pursue treatment and to allow him to on comfort measures in the hospital. 1. Palliative and end of life care. -The patient made the decision not to continue full medical treatment with nutritional repletion and surgical intervention for sigmoid resection and plan to pursue palliative care. The patient is actively dying. -Continue comfort care medications: including acetaminophen, morphine, harleen zepam, Benadryl, scopolamine and atropine. On morphine drip, will titrate for comfort. -Continue Vences for comfort. - Patient on 02/07/2020 at 2357. 2. Failure to thrive with severe protein calorie malnutrition, severe cachexia, dehydration, and electrolyte derangement, likely acute on chronic, present on admission. Active. -BMI 11.3. -Patient with very little PO intake over the past few weeks, but symptoms have been progressive over the past 3-5 years. 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 Likely secondary to alcohol dependence recently in remission, severe depression, and partial obstructing sigmoid mass. -CT chest, abdomen and pelvis with contrast demonstrated partially obstructing neoplasm in the proximal sigmoid, severe emphysema, and multiple areas of parenchymal fibrosis which also may be infectious or post inflammatory. -Discontinued dietitian and speech therapy evaluation and treatment. -Discontinued all unnecessary interventions including IV fluid hydration, electrolyte monitoring (sodium, potassium, magnesium and phosphorus) and repletion, and TPN as patient is palliative care and actively dying. 3. Sigmoid mass with partial colon obstruction, present on admission. Active. -Patient has prior experience watching his father with colon cancer endure aggressive medical treatment and what he perceived as undo suffering. He has significant aversion to colostomies as well and he would undoubtedly require an ostomy. -CT chest, abdomen and pelvis with contrast demonstrated partially obstructing neoplasm in the proximal sigmoid, severe emphysema, and multiple areas of parenchymal fibrosis which also may be infectious or post inflammatory. There does not appear to be any metastatic disease at least on CT imaging. -CEA elevated at 4.7. -Consulted psychiatry, Dr. Levine, to assess the patient is severe depression and decision-making capacity. We appreciate her time and recommendations. -Consulted general surgery, Dr. Marks, who recommended sigmoidectomy with probable colostomy. The patient is high risk surgical candidate due to severe malnourishment. There was concern that the patient will have complete obstruction with perforation in near future if no medical intervention is pursued. -The patient made the decision not to continue full medical treatment with nutritional repletion and surgical intervention for sigmoid resection and plan to pursue palliative care as above and patient is actively dying. 4. Aspiration pneumonia, in setting of severe emphysema and severe protein calorie malnutrition with full body muscle and subcutaneous fat wasting, present on admission. Active. -Patient has severe protein calorie malnutrition with full body muscle and subcutaneous fat wasting with oropharyngeal weakness with chronic aspiration as he chokes on every time he consumes PO intake. -CT chest, abdomen and pelvis with contrast demonstrated partially obstructing neoplasm in the proximal sigmoid, severe emphysema, and multiple areas of parenchymal fibrosis which also may be infectious or post inflammatory. -Discontinued dietitian and speech therapy evaluation and treatment. -Discontinued renally dose Zosyn 2.25 g every 6 hours. -Discontinued respiratory therapy evaluation and treatment. Discontinued DuoNebs every 4 hours and albuterol nebs every 2 hours as needed for shortness of breath or wheezing. May use supplemental oxygen as necessary for comfort. 5. Acute kidney injury, present on admission. Resolved. 6. Elevated troponin, present on admission. Resolved. -Likely secondary to demand ischemia from severe malnourished min dehydration. -Patient denies chest pain or pressure. -Initial troponin 0.101 and trended down with 0.076 with IV fluid hydration. No need to further trend. -EKG demonstrated normal sinus rhythm without acute ischemic changes such as ST elevation or depression. -Echocardiogram technically difficult but did not demonstrate any wall motion abnormalities in and tacked EF of 60-65 %. 7. Normocytic anemia and thrombocytopenia, acuity unclear, present on admission. Active. -Multifactorial and secondary to possible GI bleed from sigmoid mass and bone marrow suppression from severe malnourishment. Patient also likely hemoconc entrated due to dehydration and blood counts will likely plummet. -Initial hemoglobin 12.4 and platelets 131. Blood counts trending down with hemoglobin 9.3 and platelets 36. Transfusion goal hemoglobin < 8.0 and platelets < 20 or significant bleeding. Received 1 unit platelets. Discontinued VTE pr ophylaxis. -Iron panel demonstrated iron deficiency anemia likely due to sigmoid mass. B12 normal at 486 and folate normal at 8.5. - 8. Severe major depressive disorder, present on admission. Active. -Patient reported fatigue, feelings of sadness, lack of desire for food which is somewhat complicated by likely malignancy. -Started citalopram 10 mg daily then discontinued as patient is palliative care and actively dying. -Consulted psychiatry, Dr. Levine, to assess the patient is severe depression and decision-making capacity who deemed the patient to have capacity. We appreciate her time and recommendations. 9. Oral thrush, acuity unclear, present on admission. Resolving. -HIV and hepatitis-C negative. -Discontinued clotrimazole gwen as patient is palliative care and actively dying. 10. Sacral fractures, unknown chronicity, present on admission -Likely old given prior falls and reported pain but may be acute with a fall 2 days prior to admission. -Attempted physical and occupational therapy evaluation and treatment but patient declined. -Continue pain control as above. Objective ECG Impression: Patient is non responsive, fixed eye gaze, no chest rise, no heart or lung sound s auscultated. Labs Result Diagrams: 02/04/20 04:20 02/04/20 04:20
--- NOTE | 2020-02-07 00:22 | PC.NURSE ---
Addendum entered by Eden Mendosa R.N. 02/07/20 02:03: All lines removed from patient. Patient PICC LIne and Vences. Original Note: Went in to check patient, patient passed at 2357. Checked for pulse and respirations, none found. Notified provider Stefanie Boss. Dimple Mandujano RN to call next of kin sister, Mayra.
--- NOTE | 2020-02-07 00:33 | PC.NURSE ---
Patient with no pulse, no respirations at 2357. Soo Boss notified of . Call placed to next of kin, sister Nancy. Stated to go ahead and send brothers remains to [facility]. Call placed to [facility] .
--- NOTE | 2020-02-07 01:51 | PC.NURSE ---
Rec'd no call back from regional office coordinator, per Randee patient is a possible candidate for donations and that the coordinator would call back. Case # [id number]. Jarrell notified of .
--- NOTE | 2020-02-07 02:30 | PC.NURSE ---
Remains and personal belongings released to [facility].
--- NOTE | 2020-02-07 03:42 | PC.NURSE ---
Donor coordinator called and reports patient is a candidate for donation and that she will contact family.
== END 2020-02-06 23:57 | disposition expired | DRG 374 ==
LOC: ED 11:02 → AC 11:05
PROVIDERS: Internal Medicine; Admitting Provider Internal Medicine; Emergency Provider Emergency Medicine; Referring Provider Emergency Medicine; Visit Provider Internal Medicine
DX: C18.7 Malignant neoplasm of sigmoid colon (principal); E43 Unspecified severe protein-calorie malnutrition; J69.0 Pneumonitis due to inhalation of food and vomit; S32.10XA Unspecified fracture of sacrum, initial encounter for closed fracture; Z68.1 Body mass index [BMI] 19.9 or less, adult; E87.1 Hypo-osmolality and hyponatremia; N17.9 Acute kidney failure, unspecified; B37.0 Candidal stomatitis; K56.600 Partial intestinal obstruction, unspecified as to cause; F32.9 Major depressive disorder, single episode, unspecified; R62.7 Adult failure to thrive; E86.0 Dehydration; E87.6 Hypokalemia; D69.6 Thrombocytopenia, unspecified; J43.9 Emphysema, unspecified; D63.0 Anemia in neoplastic disease; F17.210 Nicotine dependence, cigarettes, uncomplicated; F10.21 Alcohol dependence, in remission; F12.90 Cannabis use, unspecified, uncomplicated; W19.XXXA Unspecified fall, initial encounter; Y92.009 Unspecified place in unspecified non-institutional (private) residence as the place of occurrence of the external cause; Z66 Do not resuscitate; Z51.5 Encounter for palliative care
CPT/HCPCS: 36415; 36430; 36569; 36592; 51701; 70450; 71045; 71046; 71260; 72070; 72125; 72220; 74177; 80048; 80053; 80076; 80305; 81001; 82378; 82550; 82553; 82607; 82746; 82962; 83036; 83540; 83550; 83605; 83735; 84100; 84145; 84443; 84484; 85025; 85610; 85730; 86704; 86706; 86803; 86850; 86900; 86901; 87040; 87340; 87389; 87635; 90792; 92610; 93005; 93306; 94640; 94760; 96361; 96365; 96366; 97162; 99285; P9016; B4189; J1642; J1650; J2060; J2270; J2543; J3480; J7613; P9035; Q9967